=== PATIENT | female | born 1995 | race Two or more races ===

== ENCOUNTER 2023-03-14 14:48 | Emergency (ER) | payer OTHER, SELFPAY ==
[2023-03-14 15:03] VITALS: BP 145/84; PULSE 68; RESP 16; TEMP 37.5; O2SAT 97; BMI 24.9
[2023-03-14 15:17] LABS: Bilirubin Urine NEGATIVE (NEGATIVE); Blood Urine LARGE (NEGATIVE); Clarity Urine CLEAR (CLEAR); Color Urine LT. YELLOW (YELLOW); Glucose Urine UA NEGATIVE (NEGATIVE); Ketones Urine NEGATIVE (NEGATIVE); Leukocyte Esterase Urine SMALL (NEGATIVE); Nitrite Urine NEGATIVE (NEGATIVE); Protein Urine TRACE mg/dL (NEG/TRACE); Specific Gravity Urine >=1.030 (1.005-1.025); Urobilinogen Urine 0.2 EU/dL (0.2-1.0); pH Urine 5.5 (5.0-9.0)
[2023-03-14 15:20] LABS: HCG Qualitative Urine* NEGATIVE (NEGATIVE)
[2023-03-14 15:29] LABS: Urine Microscopic Indicated YES
[2023-03-14 15:32] LABS: Bacteria Urine SMALL #/HPF (NONE SEEN); Mucus Urine MODERATE (NONE SEEN); RBC Urine >100 #/HPF (0-2); Squamous Epithelial Cell Urine FEW #/LPF (NONE/RARE)
[2023-03-14 15:33] LABS: Cast Seen? NONE SEEN #/LPF (NONE SEEN); Crystals Seen? None Seen #/HPF (None Seen); Transitional Epi Cells Urine RARE #/LPF (NONE SEEN); Urine Culture Indicated YES
--- NOTE | 2023-03-14 15:51 | ED_ITS ---
HPI - Female Genitourinary General Chief complaint: Urogenital-Female Time Seen by Provider: 03/14/23 15:50 Source: patient Mode of arrival: walk-in Limitations: no limitations History of Present Illness HPI Narrative: Patient presents to emergency department complaining of dysuria. Patient states she had an incident with her significant other cheating on her and she wants to be checked for STDs. She states she noted a small lump to her inner thigh and got very concerned. She denies any vaginal discharge. She denies any abdominal pain. She denies any fever, chills. She denies any nausea, vomiting, diarrhea, o r constipation. She states she is on her menses currently.Denies any previous history of STDs. Related Data Previous Rx's Medication Instructions Recorded cephalexin 500 mg capsule 500 mg PO TID 10 days #30 caps 03/14/23 Allergies Allergy/AdvReac Type Severity Reaction Status Date / Time No Known Drug Allergies Allergy Verified 03/14/23 15:01 Review of Systems ROS Status of ROS 10 or more systems reviewed and unremarkable except as noted in history and below Exam Narrative Exam Narrative: Nurses notes and vital signs reviewed and patient is not hypoxic. General: Nontoxic, Well-appearing and in no apparent distress. Skin: Warm, dry, no pallor noted. Small 2 mm pustule to the right medial thigh consistent with an infected follicle. There is no diffuse cellulitis or abscess noted. Head: Normocephalic, atraumatic. Neck: Supple, non-tender. Eye: Pupils are equal, round and EOMI. No scleral icterus. Ears, Nose, Mouth, and Throat: TM clear, no posterior oropharynx erythema or nasal mucosal hypertrophy, uvula is mid-line Oral mucosa is moist Cardiovascular: Regular Rate and Rhythm without murmur, gallop or rub. Respiratory: No accessory muscle use or respiratory distress. Lungs are clear to auscultation, no wheezing, rales or rhonchi Chest Wall: no tenderness Back: No midline thoracic or lumbar vertebral tenderness. No CVA tenderness Musculoskeletal: normal ROM, no calf or popliteal tenderness, no lower extremity edema/swelling GI: Abdomen is soft, non-distended. Normal bowel sounds. No masses appreciated. No tenderness to palpation. No rebound, guarding, or rigidity noted. Vaginal: Normal introitus, no sores noted. Normal amount of menstrual blood noted. Swabs were obtained, no cervical motion tenderness. No masses Neurological: A&O x4. No cranial nerve dysfunction observed. No truncal ataxia. Moves all extremities. Sensation intact. Psychiatric: Cooperative and interactive. Normal mood and affect. Constitutional Vital Signs - 24 hr 03/14/23 15:03 Temperature 99.5 F Pulse Rate [Monitor] 68 Respiratory Rate 16 Blood Pressure [Left Arm] 145/84 H Pulse Oximetry 97 Course Vital Signs Vital signs: Vital Signs Temperature 99.5 F 03/14/23 15:03 Pulse Rate 68 03/14/23 15:03 Respiratory Rate 16 03/14/23 15:03 Blood Pressure 145/84 H 03/14/23 15:03 Pulse Oximetry 97 03/14/23 15:03 Temperature 99.5 F 03/14/23 15:03 Pulse Rate 68 03/14/23 15:03 Respiratory Rate 16 03/14/23 15:03 Blood Pressure 145/84 H 03/14/23 15:03 Pulse Oximetry 97 03/14/23 15:03 MDM - Female Genitourinary MDM Narrative Medical decision making narrative: all findings were discussed with patient. Patient was given the option to treat prophylactically for STDs which she has declined at this time. Patient is given a prescription for folliculitis. She is to follow up with primary care doctor regarding the cultures. She is advised to abstain from sex until all the cultures are resulted and all of her sexual partners are treated if anything is positive. She understands. Differential Diagnosis Differential diagnosis: Likely urinary tract infection, bacterial vaginosis, cervicitis, vaginitis, cyst of Bartholin's gland and dysmenorrhea Lab Data Attestation: I reviewed the patient's lab results. Labs: Lab Results 03/14/23 03/14/23 Range/Units 15:00 15:29 Urine Color Lt. yellow (YELLOW) Urine Clarity Clear (CLEAR) Urine pH 5.5 (5.0-9.0) Ur Specific [place] >=1.030 A (1.005-1.025) Urine Protein Trace (NEG/TRACE) mg/dL Urine Glucose (UA) Negative (NEGATIVE) mg/dL Urine Ketones Negative (NEGATIVE) mg/dL Urine Occult Blood Large A (NEGATIVE) Urine Nitrite Negative (NEGATIVE) Urine Bilirubin Negative (NEGATIVE) Urine Urobilinogen 0.2 (0.2-1.0) EU/dL Ur Leukocyte Esterase Small A (NEGATIVE) Urine RBC >100 A (0-2) #/HPF Urine WBC 5-10 A (NONE SEEN) #/HPF Ur Squamous Epith Cells Few A (NONE/RARE) #/LPF Ur Transition Epith Cell Rare A (NONE SEEN) #/LPF Urine Crystals None seen (None Seen) #/HPF Urine Bacteria Small A (NONE SEEN) #/HPF Urine Casts None seen (NONE SEEN) #/LPF Urine Mucus Moderate A (NONE SEEN) Ur Culture Indicated? Yes Urine HCG, Qual Negative (NEGATIVE) Discharge Plan Discharge Chief Complaint: Urogenital-Female Clinical Impression: Urinary tract infection, Concern about STD in female without diagnosis, Folliculitis Patient Disposition: Home, Self-Care Time of Disposition Decision: 16:07 Condition: Good Mode of Transportation: Private Vehicle Prescriptions / Home Meds: New cephalexin 500 mg capsule 500 mg PO TID 10 Days Qty: 30 0RF Instructions: Sexually Transmitted Diseases (ED), Urinary Tract Infection in Women (ED) Stand Alone Forms: Portal Instructions Referrals: Physician,Non-Staff, MD [Primary Care Provider] - 1 week Discharge Date/Time: 03/14/23 16:16
[2023-03-18 07:07] LABS: Neisseria gonorrhoeae, NAA Positive (Negative)
== END 2023-03-14 16:16 | disposition home or self-care (01) ==
PROVIDERS: Emergency Provider Emergency Medicine
DX: N39.0 Urinary tract infection, site not specified (principal); L73.9 Follicular disorder, unspecified; Z20.2 Contact with and (suspected) exposure to infections with a predominantly sexual mode of transmission
CPT/HCPCS: 81003; 81015; 84703; 87086; 87210; 87491; 87591; 99284

== ENCOUNTER 2023-10-10 13:01 | Emergency (ER) | payer SELFPAY ==
[2023-10-10] VITALS (9 sets, daily range): BP systolic 113–123; BP diastolic 82–88; PULSE 82–89; RESP 16–29; TEMP 37.3; O2SAT 94–99; BMI 24.9
--- NOTE | 2023-10-10 13:12 | XR_ITS ---
The [address] [address] Patient Name: DAVID JOYCE MRN: [id number] date: 1995 Sex: F Assigned Patient Location: ER Current Patient Location: ED.[facility] Accession/Order Number: [id number] Exam Date: 10/10/2023 13:25 Report Date: 10/10/2023 13:56 At the request of: PAMELA MARIN Procedure: XR chest 1V EXAMINATION: XR chest 1V 10/10/2023 10:55 AM PST HISTORY: Cough TECHNIQUE: Single frontal view of the chest acquired. COMPARISONS: None. FINDINGS: Lines/tubes/other: None. Heart and mediastinum: The heart and the mediastinum are within normal limits for technique. Bones: No acute osseous abnormality. Lungs: Multifocal patchy opacification of the right base. Pleura: There is no significant pleural effusion or pneumothorax. Other: None. XR/XR chest 1V IMPRESSION: Mild right basilar opacification. Differential includes superimposition of normal tissues, aspiration, and pneumonia. Electronically authenticated by: DEVON GUERRIER Date: 10/10/2023 13:56
--- NOTE | 2023-10-10 13:18 | ED.URI1 ---
HPI - URI/Sore Throat General Chief Complaint: Shortness of Breath/Dyspnea Stated Complaint: SHORTNESS OF BREATH/ CHEST PAIN Time Seen by Provider: 10/10/23 13:09 Source: patient Limitations: no limitations History of Present Illness HPI Narrative: Patient is a 28-year-old female who presents to the emergency department for the evaluation of flulike illness that began yesterday. She reports nasal congestion, cough and chest congestion, nausea and vomiting, generalized bodyaches and fatigue. She states she wanted to make sure she does not have COVID. She reports subjective fever this morning, she took DayQuil at 9 AM. No other medications prior to arrival. She is not concerned for . She states when she is coughing she feels short of breath and has discomfort in the chest, no hemoptysis or persistent chest pain. No sick contacts in the home. Related Data Previous Rx's Medication Instructions Recorded cephalexin 500 mg capsule 500 mg PO TID 10 days #30 caps 03/14/23 [id number] 10 ml PO Q6H PRN cold symptoms 10/10/23 2 mg-30 mg-10 mg/5 mL oral syrup #200 mL (Bromfed DM) ondansetron 4 mg disintegrating 4 mg PO Q6H PRN nausea and 10/10/23 tablet vomiting #12 tabs Allergies Allergy/AdvReac Type Severity Reaction Status Date / Time No Known Drug Allergies Allergy Verified 10/10/23 13:08 Review of Systems ROS Constitutional Reports: fatigue and malaise; Denies: fever or chills Ears, nose, mouth, and throat Reports: nasal congestion Cardiovascular Reports: chest pain Respiratory Reports: shortness of breath and cough Gastrointestinal Reports: nausea and vomiting; Denies: diarrhea Musculoskeletal Denies: back pain or neck pain Integumentary/Breast Denies: rash Neurological Reports: headache PFSH PFSH Social History Smoking status: Current some day smoker Exam Narrative Exam Narrative: Gen.: Awake, alert, in no distress Head: Normocephalic, atraumatic ENT: Moist mucous membranes, bilateral TMs clear, no pharyngeal erythema Respiratory: No respiratory distress, lungs clear bilaterally; speaks in full sentences, no wheezing or rhonchi Cardio: Regular rate and rhythm Extremities: Moves extremities equally Psych: Normal mood and affect Neuro: No focal neuro deficit Skin: Warm, dry, intact Constitutional Vital Signs, click to edit/add: Last Vital Signs Temp 99.1 F 10/10/23 13:08 Pulse 82 10/10/23 13:08 Resp 18 10/10/23 13:08 BP 123/84 10/10/23 13:08 Pulse Ox 99 10/10/23 13:08 O2 Del Method Room Air 10/10/23 13:08 Course Vital Signs Vital signs: Vital Signs Temperature 99.1 F 10/10/23 13:08 Pulse Rate 82 10/10/23 13:08 Respiratory Rate 18 10/10/23 13:08 Blood Pressure 123/84 10/10/23 13:08 Pulse Oximetry 99 10/10/23 13:08 Oxygen Delivery Method Room Air 10/10/23 13:08 Temperature 99.1 F 10/10/23 13:08 Pulse Rate 82 10/10/23 13:08 Respiratory Rate 18 10/10/23 13:08 Blood Pressure 123/84 10/10/23 13:08 Pulse Oximetry 99 10/10/23 13:08 Oxygen Delivery Method Room Air 10/10/23 13:08 MDM - URI/Sore Throat MDM Narrative Medical decision making narrative: Patient is positive for influenza A, she has stable vital signs. She was treated with Zofran in the ER. She is negative for COVID. Chest x-ray shows a questionable right basilar opacity consistent with normal tissue versus atelectasis versus pneumonia and as the patient has influenza A, she will be treated for viral symptoms with Bromfed-DM, Zofran for home. Follow-up with PCP. Work note provided. Return to the ER if symptoms change or worsen. Medical Records Attestation: I reviewed the patient's medical records. Lab Data Attestation: I reviewed the patient's lab results. Labs: Lab Results 10/10/23 Range/Units 13:14 SARS-CoV-2 (PCR) Negative (NEGATIVE) Influenza Type A Ag Positive A Influenza Type B Ag Negative Imaging Data Chest x-ray: Attestation: I have reviewed the pertinent imaging results. Radiologist's impression: Procedure: XR chest 1V EXAMINATION: XR chest 1V 10/10/2023 10:55 AM PST HISTORY: Cough TECHNIQUE: Single frontal view of the chest acquired. COMPARISONS: None. FINDINGS: Lines/tubes/other: None. Heart and mediastinum: The heart and the mediastinum are within normal limits for technique. Bones: No acute osseous abnormality. Lungs: Multifocal patchy opacification of the right base. Pleura: There is no significant pleural effusion or pneumothorax. Other: None. IMPRESSION: Mild right basilar opacification. Differential includes superimposition of normal tissues, aspiration, and pneumonia. Electronically authenticated by: DEVON GUERRIER Date: 10/10/2023 13:56 ECG Data Attestation: I personally reviewed and interpreted this ECG as follows: (Normal sinus rhythm at a rate of 80 with sinus arrhythmia, no acute ST elevation or ectopy. EKG reviewed by attending physician) ECG interpretation date: 10/10/23 ECG interpretation time: 13:22 Discharge Plan Discharge Chief Complaint: Shortness of Breath/Dyspnea Clinical Impression: Influenza Patient Disposition: Home, Self-Care Time of Disposition Decision: 14:01 Condition: Good Prescriptions / Home Meds: New [id number] [Bromfed DM] 2-30-10 mg/5 mL syrup 10 ml PO Q6H PRN (Reason: cold symptoms) Qty: 200 0RF ondansetron 4 mg tablet,disintegrating 4 mg PO Q6H PRN (Reason: nausea and vomiting) Qty: 12 0RF No Action cephalexin 500 mg capsule 500 mg PO TID 10 Days Qty: 30 0RF Instructions: Influenza (ED) Stand Alone Forms: Portal Instructions Referrals: Physician,Non-Staff, MD [Primary Care Provider] - 1 week
[2023-10-10] MEDS: ONDANSETRON 4 MG RAPDIS TABLET SL (13:21)
--- NOTE | 2023-10-10 13:22 | ECG_ITS ---
The [facility] Test Date: 2023-10-10 Pat Name: DAVID JOYCE Department: Room: - Gender: Female Mulcher Operator: : 1995 Requested By: [id number] Order Number: [id number] Reading MD: SYLVAIN SERRANO Measurements Intervals [place] Rate: 80 P: 75 WI: 168 QRS: 69 QRSD: 86 T: 18 QT: 346 QTc: 382 Interpretive Statements 1100 Sinus rhythm 1102 Sinus arrhythmia 4068 Nonspecific [place] abnormality 9130 borderline ECG No previous ECG available for comparison Electronically Signed On 10-11-2023 7:04:25 EST by SYLVAIN SERRANO
[2023-10-10 13:35] LABS: Influenza Virus A Antigen Positive; Influenza Virus B Antigen Negative
[2023-10-10 13:36] LABS: Internal Control Within Normal Limits
[2023-10-10 13:38] LABS: SARS-CoV-2 Ag NEGATIVE (NEGATIVE)
== END 2023-10-10 14:09 | disposition home or self-care (01) ==
PROVIDERS: Physician Assistant; Emergency Provider Emergency Medicine
DX: J10.1 Influenza due to other identified influenza virus with other respiratory manifestations (principal); Z20.822 Contact with and (suspected) exposure to COVID-19; F17.210 Nicotine dependence, cigarettes, uncomplicated
CPT/HCPCS: 71045; 87635; 87804; 87811; 93005; 99285; Q0162

== ENCOUNTER 2024-03-25 00:32 | Emergency (ER) | payer OTHER, SELFPAY ==
[2024-03-25 00:35] VITALS: BP 127/83; PULSE 94; TEMP 36.8; O2SAT 99; BMI 22.3
--- OUTSIDE RECORDS SUMMARY | 2024-03-25 00:38 | XMS_ITS | CCD ---
Author Organization [facility] Care Team Providers Care Heel Sprayer First Name Role Phone Cr Samuel Primary Care Provider Maury Gutiérrez Attending Provider DO Samuel Hankins Primary Care Provider [phone] DO Jemal Gregory Emergency Provider [phone] REQUEST, NONE LISTED Primary Care Unavaila JAH Crocker Admitting Unavailable MYKEL, JAH Attending NAMRATA Wayne Consulting Unavailable MADDI SRINIVASAN Consulting Unavailable REQUEST, NONE LISTED Primary Care Unavaila JAH Crocker Admitting Unavailable MYKEL, JAH Attending Unavailable IGNACIO, DR SAMEER Sherman Consulting Unavailable JAH HOGUE Consulting Unavailable NIKITA, NONE LISTED Primary Care Unavaila vicki GARCIA, DR BELEM Bae Admitting Unavailedmond GARCIA, DR BELEM Bae Attending Unavailabl e RADHA, DR BELEM Bae Consulting Unavailabl cecil NORRIS, DR DEYA Monaco Consulting Unavailable Kathia VARGAS Primary Care Physician [phone] Lex Davis Attending Unavailable Mo Farias Attending Unavailable DO Lex Davis Attending Unavailable Unavailable Unavailable Unavailable Allergies Allergy Classification Reported Allergen(s) Allergy Type Date of Onset Reaction(s) Facility (1 source) No Known Medication Allergies; Translations: [No Known Medication Allergies] Propensity to adverse reactions (disorder) [facility] Repository Medications Current Medications Medication Drug Class(es) Dates Sig (Normalized) Sig (Original) doxycycline hyclate 100 mg oral capsule (3 sources) Tetracycline-class Drug Start: 03-26-2023 End: 03-29-2024 take 1 capsule by mouth twice daily doxycycline hyclate 100 mg Cap 100 mg = 1 cap(s), Oral, BID, X 7 day(s), # 14 cap(s), Refills(s) 0, Pharmacy: [facility]/pharmacy #[id number], 162.5, cm, 03/22/24 20:24:00 EDT, Height/Length Dosing, 60.2, kg, 03/22/24 20:24:00 EDT, Weight Dosing Start Date: 03/22/24 Stop Date: 03/29/24 Status: Ordered hydrOXYzine pamoate 25 mg oral capsule (6 sources) Antihistamine Start: 12-01-2018 take 1-2 tablets by mouth three times daily as needed Vistaril 25 mg Cap 1-2 tabs, Oral, TID, PRN for itching, # 20 tab(s), Refills(s) 0, Pharmacy: [facility]/pharmacy #[id number] Start Date: 12/01/18 Status: Ordered Start: 11-24-2018 End: 03-28-2021 take 25 mg by mouth four times daily Hydroxyzine Hcl Active 25 MG PO Four times daily November 24, 2018 1:54pm Pluckemin (No Known Home Meds) (1 source) Start: 03-28-2021 Pluckemin (No Kn own Home Meds) Active March 28, 2021 12:00am permethrin 50 mg/ml topical cream (4 sources) Pyrethroid Start: 11-24-2018 End: 03-28-2021 Permethrin Active 1 APPLIC TOPICAL Once 60 November 24, 2018 1:54pm leave on for 8 to14 hrs before washing off predniSONE 20 mg oral tablet (4 sources) Start: 11-24-2018 End: 03-28-2021 take 60 mg by mouth once daily Prednisone Active 60 MG PO Daily 15 November 24, 2018 1:54pm Completed/Discontinued Medications Medication Drug Class(es) Dates Sig (Normalized) Sig (Original) acetaminophen 325 mg / HYDROcodone bitartrate 5 mg oral tablet (8 sources) Opioid Agonist Start: 09-14-2018 End: 11-24-2018 take 1 tablet by mouth every four to six hours Hydrocodone-Acetami nophen (Dellroy) 5-325 mg tablet Discontinued 1 TAB PO EVERY 4-6 HOURS 12 September 15, 2018 12:31am November 24, 2018 1:14pm Start: 09-12-2018 End: 11-24-2018 take 1 tablet by mouth every six hours Hydrocodone-Acetaminophen Discontinued 1 TAB PO Every 6 hours September 12, 2018 4:17pm November 24, 2018 1:14pm acetaminophen 325 mg / oxyCODONE hydrochloride 5 mg oral tablet (4 sources) Opioid Agonist Start: 04-23-2018 End: 09-12-2018 take 1 tablet by mouth every four to six hours Oxycodone-Acetaminophen (Percocet) 5-325 mg tablet Discontinued 1 TAB PO EVERY 4-6 HOURS April 23, 2018 September 12, 2018 4:17pm cephalexin 500 mg oral capsule (8 sources) Cephalosporin Antibacterial Start: 10-07-2017 End: 10-14-2017 take 1 capsule by mouth twice daily Cephalexin (Keflex) 500 mg capsule Discontinued 500 MG PO Twice daily 19 04October 07, 2017 2:08am October 14, 2017 1:09am Start: 08-26-2017 End: 10-04-2017 take 1 g by mouth twice daily Cephalexin (Keflex) 500 mg capsule Discontinued 1 GM PO Twice daily 03 05August 27, 2017 12:34am October 04, 2017 1:50pm chlorhexidine gluconate 1.2 mg/ml mouthwash (4 sources) Start: 09-14-2018 End: 11-24-2018 take 1 mL by mouth twice daily Chlorhexidine Gluconate (Peridex) 0.12 % mouthwash Discontinued 15 ML MUCOUS MEM Twice daily September 15, 2018 12:32am November 24, 2018 1:14pm rinse mouth for at least 30 secs clotrimazole 20 mg/ml vaginal cream (8 sources) Azole Antifungal Start: 03-02-2018 End: 03-04-2018 Clotrimazole Discontinued 1 APPLICATOR VAGINAL Daily at bedtime March 02, 2018 11:42am March 04, 2018 3:02pm ibuprofen 800 mg oral tablet (8 sources) Nonsteroidal Anti-inflammatory Drug Start: 09-14-2018 End: 11-24-2018 take 800 mg by mouth every six hours Ibuprofen Discontinued 800 MG PO Q6H September 15, 2018 12:31am November 24, 2018 1:14pm Start: 03-04-2018 End: 09-12-2018 Ibuprofen Discontinued 600 M G PO Every 6 hours March 04, 2018 3:02pm September 12, 2018 4:17pm do not exceed 4 doses in a 24 hour period metoclopramide 10 mg oral tablet (8 sources) Dopamine-2 Receptor Antagonist Start: 12-13-2017 End: 12-13-2017 Metoclopramide Hcl Discontinued TABLET December 13, 2017 6:39am December 13, 2017 6:39am Start: 09-05-2017 End: 10-04-2017 take 10 mg by mouth every six hours Metoclopramide Hcl Discontinued 10 MG PO Every 6 hours 50 September 05, 2017 10:14am October 04, 2017 1:50pm naproxen 500 mg oral tablet (4 sources) Nonsteroidal Anti-inflammatory Drug Start: 04-23-2018 End: 09-12-2018 take 1 tablet by mouth every twelve hours Naproxen (Naprosyn) 500 mg tablet Discontinued 500 MG PO Q12H April 23, 2018 10:26am September 12, 2018 4:17pm ondansetron 4 mg disintegrating oral tablet (8 sources) Serotonin-3 Receptor Antagonist Start: 08-26-2017 End: 09-05-2017 take 1 tablet by mouth every eight hours Ondansetron (Zofran Odt) 4 mg tablet,disintegra ting Discontinued 4 MG PO Q8H August 27, 2017 12:34am September 05, 2017 10:14am Start: 06-09-2017 End: 07-12-2017 take 1 tablet by mouth every eight hours Ondansetron (Zofran Odt) 4 mg tablet,disintegrating Discontinued 4 MG PO Q8H June 09, 2017 8:14am July 12, 2017 1:58pm penicillin v potassium 500 mg oral tablet (4 sources) Start: 09-12-2018 End: 11-24-2018 take 500 mg by mouth every six hours Penicillin V Potassium Discontinued 500 MG PO Every 6 hours September 12, 2018 4:17pm November 24, 2018 1:14pm potassium chloride 20 meq extended release oral tablet (4 sources) Start: 06-10-2017 End: 07-12-2017 take 40 mEq by mouth once daily Potassium Chloride Discontinued 40 MEQ PO Daily June 10, 2017 3:55am July 12, 2017 1:58pm Prenat.Vits,Ab,Min-Iro n-Folic (4 sources) Start: 07-21-2017 End: 10-14-2017 take 1 tablet by mouth once daily Prenat.Vits,Ab,Min-Iron -Folic Discontinued 1 TAB PO Daily July 21, 2017 7:26am October 14, 2017 1:09am Start: 07-21-2017 End: 10-14-2017 take 1 tablet by mouth once daily Prenat.Vits,Ab,Wtc-Bmzc-Wzgrl Discontin ued 1 TAB PO Daily July 21, 2017 6:26am October 14, 2017 12:09am Start: 07-21-2017 End: 10-14-2017 take 1 tablet by mouth once daily Prenat.Vits,Ab,Vjp-Pkat-Dnrdg Discontin ued 1 TAB PO Daily July 21, 2017 12:00am October 14, 2017 1:09am Dbwdowoq08-Oqik Vgw-Tx-Pn4-Dha (4 sources) Start: 12-13-2017 End: 04-23-2018 take 1 tablet by mouth once daily Vkwosrzk01-Qark Oal-Mq-Lj9-Dha Discontinued 1 TAB PO Daily December 13, 2017 6:39am April 23, 2018 9:00am Start: 12-13-2017 End: 04-23-2018 take 1 tablet by mouth once daily Jgclwlds00-Sjxg Upz-Us-Rc4-Dha Discontinued 1 TAB PO Daily December 13, 2017 5:39am April 23, 2018 8:00am Start: 12-13-2017 End: 04-23-2018 take 1 tablet by mouth once daily Olejsjfp08-Jvzr Qxa-Xt-Ju4-Dha Discontinued 1 TAB PO Daily December 13, 2017 1:00am April 23, 2018 9:00am Jwbenzdk17-Mesq Wck-Yu-Sc3-D slater ( Plus Dha) 27 mg iron-1 mg -312 mg-250 mg combo pack (4 sources) Start: 12-13-2017 End: 12-13-2017 Wrsbsxqm23-Nzqb Zhm-Ww-Gn4-D slater ( Plus Dha) 27 mg iron-1 mg -312 mg-250 mg combo pack Discontinued December 13, 2017 6:39am December 13, 2017 6:40am Start: 12-13-2017 End: 12-13-2017 Bhqgnrnh65-Ltcf Ndd-Ve-Xg9-D slater ( Plus Dha) 27 mg iron-1 mg -312 mg-250 mg combo pack Discontinued December 13, 2017 5:39am December 13, 2017 5:40am Start: 12-13-2017 End: 12-13-2017 Msuhecwi52-Qpom Gtb-Ja-Ef3-D slater ( Plus Dha) 27 mg iron-1 mg -312 mg-250 mg combo pack Discontinued December 13, 2017 1:00am December 13, 2017 6:40am promethazine hydrochloride 25 mg oral tablet (8 sources) Phenothiazine Start: 09-02-2017 End: 09-05-2017 take 25 mg by mouth every six hours Promethazine Discontinued 25 MG PO Q6H September 02, 2017 9:08pm September 05, 2017 10:15am Start: 06-10-2017 End: 07-12-2017 take 12.5 mg by mouth every six hours Promethazine Discontinued 12.5 MG PO Q6H June 10, 2017 3:55am July 12, 2017 1:58pm Streb B Medication (4 sources) Start: 07-21-2017 End: 08-26-2017 Streb B Medication Discontin ued July 21, 2017 2:18am August 26, 2017 10:15pm Start: 07-21-2017 End: 08-26-2017 Streb B Medication Discontin ued July 21, 2017 1:18am August 26, 2017 9:15pm Start: 07-21-2017 End: 08-26-2017 Streb B Medication Discontin ued July 21, 2017 12:00am August 26, 2017 10:15pm traMADol hydrochloride 50 mg oral tablet (1 source) Opioid Agonist Start: 03-28-2021 End: 03-28-2021 take 50 mg by mouth every four hours Tramadol Discontinued 50 MG PO Q4H 20 March 28, 2021 12:00am March 28, 2021 7:30am Problems Active Problems Problem Classification Problem Date Documented Da te Episodic/Chronic Abdominal pain (7 sources) Unspecified abdominal pain; Translations: [Pelvic and perineal pain] Onset: 06-19-2021 Episodic Genitourinary symptoms and ill-defined conditions (6 sources) Bacteriuria; Translations: [Bacteriuria] Onset: 03-22-2024 10-07-2017 Episodic Hemorrhage during ; abruptio placenta; placenta previa (5 sources) Threatened miscarriage in first trimester; Translations: [Threatened ] 07-21-2017 Episodic Immunizations and screening for infectious disease (1 source) Exposure to sexually transmissible disorder; Translations: [Contact with and (suspected) exposure to infections with a predominantly sexual mode of transmission] Onset: 03-22-2024 Episodic Menstrual disorders (1 source) Dysmenorrhea, unspecified; Translations: [DYSMENORRHEA UNSPECIFIED] Onset: 06-21-2021 Chronic Nausea and vomiting (6 sources) Nausea and vomiting; Translations: [Nausea with vomiting, unspecified] Onset: 05-31-2022 09-04-2017 Episodic Other complications of (5 sources) Vomiting of ; Translations: [Vomiting of , unspecified] 08-26-2017 Episodic Other complications of (1 source) Other specified related conditions, first trimester; Translations: [OTH SPEC PREG RELATED COND 1ST TRI] Onset: 05-31-2022 Episodic Other female genital disorders (4 sources) Vaginal bleeding; Translations: [Abnormal uterine and vaginal bleeding, unspecified] 10-04-2017 Chronic Other female genital disorders (3 sources) Abnormal uterine and vaginal bleeding, unspecified; Translations: [ABNORMAL UTERINE VAGINAL BLEED UNS] Onset: 06-11-2022 Chronic Other female genital disorders (1 source) Vaginal bleeding; Translations: [Vaginal spotting] Episodic Other gastrointestinal disorders (5 sources) Diarrhea; Translations: [Diarrhea, unspecified] 06-09-2017 Episodic Other and delivery including normal (5 sources) ; Translations: [Encounter for supervision of normal , unspecified, unspecified trimester] 10-07-2017 Episodic Other skin disorders (2 sources) Mass of wrist; Translations: [Localized swelling, mass and lump, unspecified upper limb] 03-28-2021 Episodic Residual codes; unclassified (1 source) Less than 8 weeks gestation of ; Translations: [< 8 WEEKS GESTATION ] Onset: 05-31-2022 Episodic Sexually transmitted infections (not HIV or hepatitis) (1 source) Sexually transmitted infectious disease; Translations: [Unspecified sexually transmitted disease] Onset: 03-26-2023 Episodic Spondylosis; intervertebral disc disorders; other back problems (5 sources) Backache; Translations: [Dorsalgia, unspecified] 10-07-2017 Episodic Spontaneous (1 source) Complete or unspecified spontaneous without complication; Translations: [COMPLETE/UNS SPONT AB W/O COMP] Onset: 06-12-2022 Episodic Substance-related disorders (3 sources) Nicotine dependence, cigarettes, uncomplicated; Translations: [Smoker] Onset: 06-12-2022 12-01-2018 Chronic Comment on above: Added secondary to d ocumentation in Social History. Urinary tract infections (5 sources) Urinary tract infectious disease; Translations: [Urinary tract infection, site not specified] 08-26-2017 Episodic Viral infection (5 sources) Acute viral disease; Translations: [Viral infection, unspecified] 10-14-2017 Episodic Past or Other Problems Problem Classification Problem Date Documented Da te Episodic/Chronic Other infections; including parasitic (2 sources) Infestation by Sarcoptes scabiei douglas hominis Onset: 11-10-2018 12-01-2018 Episodic Ovarian cyst (1 source) Unspecified ovarian cyst, right side; Translations: [UNSPECIFIED OVARIAN CYST RIGHT SIDE] Onset: 06-21-2021 Episodic Substance-related disorders (1 source) Cannabis use, unspecified, uncomplicated; Translations: [CANNABIS USE UNS UNCOMPLICATED] Onset: 06-21-2021 Episodic Results Test Name Value Interpretation Reference Range Facility Discharge Instructionson Discharge Instructions [id number]#1.00TIFF Normal [facility] ED Note-Physicianon 03-23-20 24 ED Note-Physician Basic Information Time Seen: Jung GARCIA, Michael Pettit. 03/22/2024 20:19 Chief Complaint Painful urination for past 3 days. Concern for STD. No fever. States had sexual intercourse last week and has been having pain since. History of Present Illness A 28-year-old female reports to the emergency department with chief complaint of painful urination for the last 3 days. She also reports that she is sore near the back of her vagina. Reports had sex 3 days ago. She states that it was a new partner. She states unsure of STD concerns, but would like to be treated. Reports that she has been having some pain ever since. She denies any fevers or chills. Reports some dysuria. She states that otherwise is not any medications. She denies any fevers or chills. Review of Systems No other aggravating or relieving factors no other associated symptoms no other prior treatments or complaints. Family: Reviewed and noncontributory Social: lives at home Review of systems negative unless otherwise specified in the HPI. Physical Exam Vitals & Measurements T: 37.1 ?C(Oral) HR: 95(Peripheral) RR: 16 BP: 149/90 SpO2: 100% HT: 162.5 cm WT: 60.2 kg BMI: 22.8 General: The patient appears well and in no apparent distress. Patient is resting comfortably on bed. Skin: Warm, dry, no pallor noted. Head: Normocephalic, atraumatic Neck: No JVD Eye: PERRLA, EOMI ENT: Moist mucus membranes Cardiovascular: Regular rate normal peripheral perfusion Respiratory: No respiratory distress no accessory muscle use no obvious audible wheezing Chest Wall: no deformity Musculoskeletal: normal ROM, no deformity, no swelling GI: No obvious distention soft nontender nondistended no guarding rebounding or rigidity : External genitalia examination performed with nurse Lianna at bedside. No erythema or lacerations noted in the peritoneal area. Mild tenderness to palpation near the posterior aspect of the labia. No discharge or ulcerations noted. Neurological: A&O moves all extremities equal strength and symmetry Psychiatric: Cooperative and appropriate Medical Decision Making MEDICAL DECISION MAKING Number and Complexity of Problems Differential Diagnosis: [] [facility] Data External documents reviewed: [] My EKG interpretation: [] My CT interpretation: [] My X-ray interpretation: [] My Ultrasound interpretation: [] Decision rules/scores evaluated: [] Discussed with: [] Treatment and Disposition ED Course: 28-year-old female reports to the emergency department with chief complaint of possible STD exposure, as well as dysuria. Reports he has pain around her peritoneal area. She states that she had sex couple days ago, still being painful. Unsure of STD risk, but would like to be treated. Denies any fevers or chills. She did want to be examined, on her posterior aspect of her peritoneal area, so I did do external genital exam. Please see physical exam note. Patient tolerated well. Urinalysis was negative. Patient was treated with ceftriaxone and doxycycline for STD concerns. Discussed follow-up with PCP for further testing including syphilis and HIV.. Discussed return precautions. Follow-up with your primary care provider in 3 to 5 days. If symptoms worsen, do not improve, or new symptoms arise please report back to emergency department for further evaluation. The patient was understanding and agreeable to plan moving forward. Shared decision making: [] Code status: [] Assessment/Plan Dysuria (R30.0: Dysuria) STD exposure (Z20.2: Contact with and (suspected) exposure to infections with a predominantly sexual mode of transmission) Orders: ceftriaxone, 500 mg = 1 EA, Injection, IntraMuscular, Once, Stop date 03/22/24 20:48:00 EDT, STAT, Start date 03/22/24 20:48:00 EDT, 03/22/24 20:48:00 EDT doxycycline, 100 mg = 1 cap(s), Oral, BID, X 7 day(s), # 14 cap(s), Refills(s) 0, Pharmacy: [facility]/pharmacy #[id number], 162.5, cm, 03/22/24 20:24:00 EDT, Height/Length Dosing, 60.2, kg, 03/22/24 20:24:00 EDT, Weight Dosing doxycycline, 100 mg = 1 cap(s), Cap, Oral, Once, Stop date 03/22/24 20:48:00 EDT, STAT, Start date 03/22/24 20:48:00 EDT, 03/22/24 20:48:00 EDT Chlamydia/Gonococcus , GILBERTO U Beta Hcg Qual UA with Cult Rflx Urine Culture Medications Administered Given cefTRIAXone IM, 500 mg, IntraMuscular doxycycline hyclate 100 mg Cap, 100 mg, Oral Disposition Plan Patient Discharge Condition stable Discharge Disposition to home Discharge Prescription List Prescriptions doxycycline hyclate 100 mg Cap, 100 mg= 1 cap(s), Oral, BID Follow-up With When Contact Information Kathia VARGAS In 3 days 03/25/[address] [place], [place] [id number] Business (1) Additional Instructions: Call Dr for diagnosis based follow up Patient Education Safe Sex Dysuria Attestation Patient seen and evaluated by the physician night assistant. Attending physician was present in the emergency department a (more content not included)... Normal [facility] Comment on above: Result Comment: Elec tronically Signed By: Jung GARCIA, Michael Fatima\.br\Date and Time Signed: 06/16/24 21:23 EDT\.br\Electronically Co-Signed By: Lex Davis DO\.br\Date and Time Co-Signed: 03/23/24 01:47 EDT Consent for Treatmenton 03-07 Consent for Treatment [id number] #1.00TIFF Normal [facility] ED Clinical Summaryon 2023 ED Clinical Summary [place] [id number] ED Clinical Summary Person Information Name: DAVID JOYCE/[facility] Age: 28 Years : 1995 Sex: Female Language: Gabonese PCP: Kathia VARGAS DO Marital Status: Single Visit Id: Visit Reason: Perineal injury; STD exposure; Dysuria; Frequent urination/ pain Speciality: Acuity: 3 Enc Type: Emergency Med Service: Emergency Arrival: 03/22/2024 20:17:10 Discharge: 03/22/2024 21:25:56 LOS: 000 01:08 Checkin: 03/22/2024 20:17:10 Checkout: 03/22/2024 21:25:56 Dispo Type: Home (Routine DC) EVENTS: Event Name Event Status Request Date/Time Start Date/Time Complete Date/Time Arrive Complete 03/22/2024 20:17:10 03/22/2024 20:17:10 03/22/2024 20:17:10 Document Home Meds Request 03/22/2024 20:17:10 Triage Complete 03/22/2024 20:17:10 03/22/2024 20:24:56 03/22/2024 20:24:56 Dr Exam Complete 03/22/2024 20:19:32 03/22/2024 20:19:32 03/22/2024 20:19:32 Registration Complete 03/22/2024 20:19:32 03/22/2024 20:28:45 03/22/2024 20:30:35 Dr Exam Complete 03/22/2024 20:19:45 03/22/2024 20:19:45 03/22/2024 20:19:45 Pending Labs Complete 03/22/2024 20:21:13 03/22/2024 21:04:56 Lab Complete 03/22/2024 20:21:13 03/22/2024 21:04:56 Urine Collect Complete 03/22/2024 20:21:13 03/22/2024 21:04:56 Pending Labs Collected 03/22/2024 20:24:55 Bed Assign Complete 03/22/2024 20:28:45 03/22/2024 20:28:45 03/22/2024 20:28:45 RN Exam Complete 03/22/2024 20:28:45 03/22/2024 20:53:12 03/22/2024 20:53:12 Reg Complete Request 03/22/2024 20:30:35 Reg Bed Request Complete 03/22/2024 20:38:24 03/22/2024 20:38:24 03/22/2024 20:38:24 Meds Admin Complete 03/22/2024 20:48:21 03/22/2024 21:22:39 Pending Labs Collected 03/22/2024 20:59:49 03/22/2024 20:59:49 Lab Collected 03/22/2024 20:59:49 03/22/2024 20:59:49 Discharge Complete 03/22/2024 21:17:30 03/22/2024 21:26:04 03/22/2024 21:26:04 Transfer Complete 03/22/2024 21:26:04 03/22/2024 21:26:04 03/22/2024 21:26:04 ADDRESS: [address] [place] [phone] PHYS DOC NOTES: MEDICAL INFORMATION: Prescriptions Given: Medications to Continue Taking That Have Changed [facility]/pharmacy #[id number], [address] [place], [place] [id number], [phone] START: doxycycline (doxycycline hyclate 100 mg Cap) 1 Capsules By Mouth 2 times a day for 7 Days. Refills: 0. Other Medications START: doxycycline (doxycycline hyclate 100 mg Cap) 1 Capsules By Mouth 2 times a day. Refills: 0. Medications to Continue with No Changes Other Medications hydrOXYzine (Vistaril 25 mg Cap) 1-2 tabs By Mouth 3 times a day as needed for itching. Refills: 0. PATIENT EDUCATION INFORMATION: Instructions: Safe Sex; Dysuria Follow up: With: Address: When: Kathia VARGAS [address] [place] [address], [place] [phone] Business (1) In 3 days 03/25/2024 Comments: Call Dr for diagnosis based follow up DIAGNOSIS: Dysuria; STD exposure Normal [facility] ED Patient Education Noteon 03-22-2024 ED Patient Education Note Obstetrics and Gynecology Safe Sex Practicing safe sex means taking steps before and during sex to reduce your risk of: ? Getting an STI (sexually transmitted infection). ? Giving your partner an STI. ? Unwanted or unplanned . How to practice safe sex Ways you can practice safe sex ? Limit your sexual partners to only one partner who is having sex with only you. ? Avoid using alcohol and drugs before having sex. Alcohol and drugs can affect your judgment. ? Before having sex with a new partner: ? Talk to your partner about past partners, past STIs, and drug use. ? Get screened for STIs and discuss the results with your partner. Ask your partner to get screened too. ? Check your body regularly for sores, blisters, rashes, or unusual discharge. If you notice any of these problems, visit your health care provider. ? Avoid sexual contact if you have symptoms of an infection or you are being treated for an STI. ? While having sex, use a condom. Make sure to: ? Use a condom every time you have vaginal, oral, or anal sex. Both females and males should wear condoms during oral sex. ? Keep condoms in place from the beginning to the end of sexual activity. ? Use a latex condom, if possible. Latex condoms offer the best protection. ? Use only water-based lubricants with a condom. Using petroleum-based lubricants or oils will weaken the condom and increase the chance that it will break. Ways your health care provider can help you practice safe sex ? See your health care provider for regular screenings, exams, and tests for STIs. ? Talk with your health care provider about what kind of control (contraception) is best for you. ? Get vaccinated against hepatitis B and human papillomavirus (HPV). ? If you are at risk of being infected with HIV (human immunodeficiency virus), talk with your health care provider about taking a prescription medicine to prevent HIV infection. You are at risk for HIV if you: ? Are a man who has sex with other men. ? Are sexually active with more than one partner. ? Take drugs by injection. ? Have a sex partner who has HIV. ? Have unprotected sex. ? Have sex with someone who has sex with both men and women. ? Have had an STI. Follow these instructions at home: ? Take vjnw-ydf-gkywmbl and prescription medicines only as told by your health care provider. ? Keep all follow-up visits. This is important. Where to find more information ? Centers for Disease Control and Prevention: www.cdc.gov ? Planned Parenthood: www.plannedparenthoo d.org ? Office on Women's Health: www.womenshealth.gov Summary ? Practicing safe sex means taking steps before and during sex to reduce your risk getting an STI, giving your partner an STI, and having an unwanted or unplanned . ? Before having sex with a new partner, talk to your partner about past partners, past STIs, and drug use. ? Use a condom every time you have vaginal, oral, or anal sex. Both females and males should wear condoms during oral sex. ? Check your body regularly for sores, blisters, rashes, or unusual discharge. If you notice any of these problems, visit your health care provider. ? See your health care provider for regular screenings, exams, and tests for STIs. This information is not intended to replace advice given to you by your health care provider. Make sure you discuss any questions you have with your health care provider. Document Revised: 02/27/2021 Document Reviewed: 02/27/2021 [employer] Patient Education ? 2022 [employer] Urology Dysuria Dysuria is pain or discomfort during urination. The pain or discomfort may be felt in the part of the body that drains urine from the bladder (urethra) or in the surrounding tissue of the genitals. The pain may also be felt in the groin area, lower abdomen, or lower back. You may have to urinate frequently or have the sudden feeling that you have to urinate (urgency). Dysuria can affect anyone, but it is more common in females. Dysuria can be caused by many different things, including: ? Urinary tract infection. ? Kidney stones or bladder stones. ? Certain STIs (sexually transmitted infections), such as chlamydia. ? Dehydration. ? Inflammation of the tissues of the vagina. ? Use of certain medicines. ? Use of certain soaps or scented products that cause irritation. Follow these instructions at home: Medicines ? Take tlxp-lve-fvrjfwi and prescription medicines only as told by your health care provider. ? If you were prescribed an antibiotic medicine, take it as told by your health care provider. Do not stop taking the antibiotic even if you start to feel better. Eating and drinking ? Drink enough fluid to keep your urine pale yellow. ? Avoid caffeinated beverages, tea, and alcohol. These beverages can irritate the bladder and make dysuria worse. I (more content not included)... Normal [facility] ED Patient Summaryon 024 ED Patient Summary [address] [address] Patient Discharge Instructions Person Information Name: DAVID JOYCE Age: 28 Years Arrival Date: 03/22/2024 20:17:10 Discharge Diagnosis: Dysuria; STD exposure Primary Care Physician: Kathia VARGAS DO Provider Information Primary Provider: Lex Davis DO Advanced Patternmaker Apprentice Metal:None The exam and treatment you received in the Emergency Department were for an urgent problem and are not intended as complete care. It is important that you follow up with a doctor, nurse practitioner, or physician?s night assistant for ongoing care. If your symptoms become worse or you do not improve as expected and you are unable to reach your usual health care provider, you should return to the Emergency Department. We are available 24 hours a day. DAVID JOYCE has been given the following list of patient education materials, prescriptions and follow-up instructions: Follow-up Instructions: With: Address: When: Kathia VARGAS [address] [place] [address] Business (1) In 3 days 03/25/2024 Comments: Call Dr for diagnosis based follow up In the event that this physician does not participate in your insurance network, please consult with your insurance company to find a nearby participating provider. Patient Education Materials: Safe Sex; Dysuria A MESSAGE TO ALL PATIENTS REGARDING OPIOIDS PRESCRIPTION OPIOIDS: WHAT YOU NEED TO KNOW Prescription opioids can be used to help relieve xgjpdpua-if-zhwhzz pain and are often prescribed following a surgery or injury, or for certain health conditions. These medications can be an important part of the treatment but also come with serious risks. It is important to work with your healthcare provider to make sure you are getting the safest, most effective care. WHAT ARE THE RISKS AND SIDE EFFECTS OF OPIOID USE? Prescription opioids carry serious risks of addiction and overdose, especially with prolonged use. An opioid overdose, often marked by slowed breathing, can cause sudden . The use of prescription opioids can have a number of side effects as well, even when taken as directed: ? Tolerance?meaning you might need to take more of the medication for the same pain relief ? Physical dependence?meaning you have symptoms of withdrawal when a medication is stopped ? Increased sensitivity to pain ? Constipation ? Nausea, vomiting, and dry mouth ? Sleepiness and dizziness ? Confusion ? Depression ? Low levels of testosterone that can result in lower sex drive, energy, and strength ? Itching and sweating RISKS ARE GREATER WITH: ? History of drug misuse, substance use disorder, or overdose ? Mental health conditions (such as depression or anxiety) ? Sleep apnea ? Older age (65 years and older) ? Avoid alcohol while taking prescription opioids. Also, unless specifically advised by your health care provider, medications to avoid include: ? Benzodiazepines (such as Xanax or Valium) ? Muscle relaxants (such as Soma or Flexeril) ? Hypnotics (such as Ambien or Lunesta) ? Other prescription opioids KNOW YOUR OPTIONS Talk to your health care provider about ways to manage your pain that don?t involve prescription opioids. Some of these options may actually work better and have fewer risks and side effects. Options may include: ? Pain relievers such as acetaminophen, ibuprofen, and naproxen ? Some medication that are also used for depression or seizures ? Physical therapy and exercise ? Cognitive behavioral therapy, a psychological, goal-directed approach, in which patients learn how to modify physical, behavioral, and emotional triggers of pain and stress. IF YOU ARE PRESCRIBED OPIOIDS FOR PAIN: ? Never take opioids in greater amounts or more often than prescribed. ? Follow up with your primary health care provider. o Work together to create a plan on how to manage your pain. o Talk about ways to help manage your pain that don?t involve prescription opioids. o Talk about any and all concerns and side effects. ? Help prevent misuse and abuse o Never sell or share prescription opioids. o Never use another person?s prescription opioids. ? Store prescription opioids in a secure place and out of reach of others (this may include visitors, children, friends, and family). ? Safely dispose of unused prescription opioids: Find your community drug take-back program or your pharmacy mail-back program, or flush them down the toilet, following guidance from the Food and Drug Administration (www.fda.gov/Drugs/R esourcesForYou). ? Visit www.cdc.gov/drugover dose to learn about the risks of opioids abuse and overdose. ? If you believe you may be struggling with addiction, tell your health group care worker and ask for guidance or call [facility] Jessica (more content not included)... Normal [facility] SEROLOGYOrdered By: Vasu Cifuenteseon on 03-22-2024 HCG.beta subunit (U) [Moles/Vol] Negative Normal [facility] Man Sero U BetaHcg Qualon 03-22-2024 HCG.beta subunit (U) [Moles/Vol] Negative Normal [facility] Comment on above: Performed By: #### 2 [id number] #### [facility] [address] [place] [address] UA with Cult Rflxon 03-22-20 24 Bilirubin Ql (U) Negative Normal Negative [facility] Comment on above: Performed By: #### 4 [id number] #### [facility] [address] [place] [address] Clarity (U) Clear Normal Clear [facility] Comment on above: Performed By: #### 4 [id number] #### [facility] [address] [place] [address] Color (U) Light-Yellow Normal Yellow [facility] Comment on above: Result Comment: Micr oscopic readings are only performed on those samples that meet specific criteria set forth by [facility]. Performed By: #### 4 [id number] #### [facility] [address] [place] [address] Epithelial cells.squamous Auto (Urine sed) [#/Area] 3-4 Invalid Interpretation Code [facility] Comment on above: Performed By: #### 4 [id number] #### [facility] [address] [place] [address] Glucose Ql (U) Negative Normal Negative [facility] Comment on above: Performed By: #### 4 [id number] #### [facility] [address] [place] [address] Hemoglobin Auto test strip (U) [Mass/Vol] Negative Normal Negative [facility] Comment on above: Performed By: #### 4 [id number] #### [facility] [address] [place] [address] Ketones Auto test strip Ql (U) Negative Normal Negative [facility] Comment on above: Performed By: #### 4 [id number] #### [facility] [address] [place] [address] Leukocyte esterase Auto test strip Ql (U) 75 Rosa M/uL Abnormal Negative [facility] Comment on above: Performed By: #### 4 [id number] #### [facility] [address] [place] [address] Mucus Auto Ql (U) 1+ CD:[id number] Abnormal Negative F [facility] Comment on above: Performed By: #### 4 [id number] #### [facility] [address] [place] [address] Nitrite Auto test strip Ql (U) Negative Normal Negative [facility] Comment on above: Performed By: #### 4 [id number] #### [facility] [address] [place] [address] pH (U) 6.5 [pH] Invalid Interpretation Code 5.0-9.0 [facility] Comment on above: Performed By: #### 4 [id number] #### [facility] [address] [place] [address] Protein Ql (U) Trace Abnormal Negative [facility] Comment on above: Performed By: #### 4 [id number] #### [facility] [address] [place] [address] RBC Ql (U) 4-20 Abnormal 0-3 [facility] Comment on above: Performed By: #### 4 [id number] #### [facility] [address] [place] [address] Specific gravity (U) [Rel density] 1.027 Invalid Interpretation Code 1.005-1.030 [facility] Comment on above: Performed By: #### 4 [id number] #### [facility] [address] [place] [address] Urobilinogen (U) [Mass/Vol] Negative Normal Negative [facility] Comment on above: Performed By: #### 4 [id number] #### [facility] [address] [place] [address] WBC Auto (Urine sed) [#/Area] 6-15 Abnormal 0-5 [facility] Comment on above: Performed By: #### 4 [id number] #### [facility] [address] [place] [address] Type of Urine collection method Clean Catch Normal [facility] Comment on above: Performed By: #### 4 [id number] #### [facility] [address] [place] [address] URINALYSISOrdered By: SYSTEM SYSTEM on 03-22-2024 Bilirubin Ql (U) Negative Normal Negativemg/dL [facility] UA Auto SS Clarity (U) Clear (03/22/24 8:30 PM) Normal Clear [facility] UA Auto SS Color (U) Light-Yellow 1 (03/22/24 8:30 PM) Normal Yellow [facility] UA Auto SS Comment on above: Interpretive Data: M icroscopic readings are only performed on those samples that meet specific criteria set forth by [facility]. Epithelial cells.squamous Auto (Urine sed) [#/Area] 3-4 graded/HPF Invalid Interpretation Code [facility] UA Auto SS Glucose Ql (U) Negative Normal Negativemg/dL [facility] UA Auto SS Hemoglobin Auto test strip (U) [Mass/Vol] Negative Normal Negativemg/dL [facility] UA Aut o SS Ketones Auto test strip Ql (U) Negative Normal Negativemg/dL [facility] UA Auto SS Leukocyte esterase Auto test strip Ql (U) 75 Rosa M/uL Rosa M/uL Invalid Interpretation Code NegativeLeu/u L [facility] UA Auto SS Mucus Auto Ql (U) 1+ graded/LPF Invalid Interpretation Code Negativegrade d/LPF [facility] UA Auto SS Nitrite Auto test strip Ql (U) Negative Normal Negativemg/dL [facility] UA Auto SS pH (U) 6.5 *NA* (03/22/24 8:30 PM) Invalid Interpretation Code 5.0 - 9.0 [facility] UA Auto SS Protein Ql (U) Trace mg/dL Invalid Interpretation Code Negativemg/dL [facility] UA Auto SS RBC Ql (U) 4-20 graded/HPF Invalid Interpretation Code 0-3graded/HPF [facility] UA Auto SS Specific gravity (U) [Rel density] 1.027 *NA* (03/22/24 8:30 PM) Invalid Interpretation Code 1.005 - 1.030 [facility] UA Auto SS Urobilinogen (U) [Mass/Vol] Negative Normal Negativemg/dL [facility] UA Auto SS WBC Auto (Urine sed) [#/Area] 6-15 graded/HPF Invalid Interpretation Code 0-5graded/HPF [facility] UA Auto SS URINALYSISOrdered By: Michael fitch on 03-22-2024 UA Spec Desc Clean Catch (03/22/24 8:30 PM) Normal [facility] UA Auto SS Consent for Treatmenton 03-08 Consent for Treatment [id number] #1.00CD:127 Normal [facility] Discharge Instructionson Discharge Instructions [id number]#[id number]:127 Normal [facility] ED Clinical Summaryon 2022 ED Clinical Summary [address] [address] ED Clinical Summary Person Information Name: DAVID JOYCE/[facility] Age: 27 Years : 1995 Sex: Female Language: Gabonese PCP: Kathia VARGAS DO Marital Status: Single Visit Id: Visit Reason: STD exposure; Medical screening exam; THINKS TATTOO IS INFECTED Speciality: Acuity: 4 Enc Type: Emergency Med Service: Emergency Arrival: 03/26/2023 00:03:16 Discharge: 03/26/2023 01:25:54 LOS: 000 01:22 Checkin: 03/26/2023 00:03:16 Checkout: 03/26/2023 01:25:54 Dispo Type: Home (Routine DC) EVENTS: Event Name Event Status Request Date/Time Start Date/Time Complete Date/Time Arrive Complete 03/26/2023 00:03:16 03/26/2023 00:03:16 03/26/2023 00:03:16 Document Home Meds Request 03/26/2023 00:03:16 Triage Complete 03/26/2023 00:03:16 03/26/2023 00:10:21 03/26/2023 00:10:21 Registration Complete 03/26/2023 00:07:20 03/26/2023 00:07:20 03/26/2023 00:07:20 Reg Complete Request 03/26/2023 00:07:20 Reg Bed Request Complete 03/26/2023 00:07:20 03/26/2023 00:07:20 03/26/2023 00:07:20 Bed Assign Complete 03/26/2023 00:11:18 03/26/2023 00:11:18 03/26/2023 00:11:18 Dr Exam Complete 03/26/2023 00:11:18 03/26/2023 00:13:46 03/26/2023 00:13:46 RN Exam Complete 03/26/2023 00:11:18 03/26/2023 00:49:27 03/26/2023 00:49:27 Registration Request 03/26/2023 00:13:46 Meds Admin Complete 03/26/2023 00:36:46 03/26/2023 00:50:04 Discharge Complete 03/26/2023 01:19:49 03/26/2023 01:26:03 03/26/2023 01:26:03 Transfer Complete 03/26/2023 01:26:03 03/26/2023 01:26:03 03/26/2023 01:26:03 ADDRESS: [address] [facility] [id number] PHYS DOC NOTES: MEDICAL INFORMATION: Prescriptions Given: New Medications [id number], [address] [place], [place] [id number], [phone] doxycycline (doxycycline hyclate 100 mg Cap) 1 Capsules By Mouth 2 times a day. Refills: 0. Medications to Continue with No Changes Other Medications hydrOXYzine (Vistaril 25 mg Cap) 1-2 tabs By Mouth 3 times a day as needed for itching. Refills: 0. PATIENT EDUCATION INFORMATION: Instructions: Gonorrhea Follow up: With: Address: When: Kathia VARGAS [address] [place] [address], [address] [address] [facility] (1) In 3 days 03/29/2023 Comments: Return to the emergency room if you develop any symptoms. DIAGNOSIS: 1:STD (sexually transmitted disease) Normal [facility] ED Note-Physicianon 03-26-20 ED Note-Physician Basic Information Time Seen: Mo Farias M.D. 03/26/2023 00:13 Chief Complaint states was told she had an std and would like to be treated for it. also tattoo to right thigh has been a little irritated History of Present Illness The patient is a 27-year-old -[place]in[place] female who presented to the emergency room for treatment for gonorrhea. The patient states a week ago she was seen at [facility] and she had pelvic culture and she was called and told that she showed positive for gonorrhea. The patient has no vaginal discharge. She states she came here because she is closer to this hospital. The patient denies any abdominal pain. She reports some itching of her tattoo on her right thigh. The patient denies any fever, denies any chills. She denies any other associated symptoms. Review of Systems Additional ROS info: Except as noted in the above Review of Systems and in the History of Present Illness all other systems have been reviewed and are negative or noncontributory. Physical Exam Vitals & Measurements T: 36.7 ?C(Oral) HR: 81(Peripheral) RR: 16 BP: 134/82 SpO2: 98% HT: 162 cm WT: 68.3 kg BMI: 26.02 General: alert, no acute distress Skin: warm, dry Head: no trauma, normocephalic Neck: Trachea midline Eye: normal conjunctiva, sclera clear Cardiovascular: regular rate and rhythm Respiratory: Lungs CTA, respirations non labored, breath sounds equal Gastrointestinal: soft, non distended, no tenderness, no guarding Extremities: no deformity, no trauma, right thigh tattoo with no erythema. No tenderness with palpation. Neurological: Alert and oriented, speech normal, no focal neuro deficits Psychiatric: cooperative, affect appropriate for age, Medical Decision Making MEDICAL DECISION MAKING Number and Complexity of Problems Differential Diagnosis: [] [facility] Data External documents reviewed: [] My EKG interpretation: [] My CT interpretation: [] My X-ray interpretation: [] My Ultrasound interpretation: [] Decision rules/scores evaluated: [] Discussed with: [] Treatment and Disposition ED Course: The patient presented for treatment for sexually transmitted disease. She has been seen at [facility] and she was called and told that she tested positive for gonorrhea. The patient has no vaginal discharge. No abdominal pain. The patient was given Rocephin IM. We will discharge patient home with prescription for doxycycline. She was instructed to make sure to finish the treatment doxycycline for the chlamydia as well. She will follow-up with her primary care. She is instructed to return to the emergency room if she develops any symptoms. Shared decision making: [] Code status: [] Assessment/Plan 1. STD (sexually transmitted disease) (A64: Unspecified sexually transmitted disease) Orders: ceftriaxone, 500 mg = 1 EA, Injection, IntraMuscular, Once, Stop date 03/26/23 0:36:00 EDT, STAT, Start date 03/26/23 0:36:00 EDT, 03/26/23 0:36:00 EDT doxycycline, 100 mg = 1 cap(s), Oral, BID, # 14 cap(s), Refills(s) 0, Pharmacy: [id number], 162, cm, 03/26/23 0:10:00 EDT, Height/Length Dosing, 68.3, kg, 03/26/23 0:10:00 EDT, Weight Dosing Medications Administered Given cefTRIAXone IM, 500 mg, IntraMuscular Disposition Plan Patient Discharge Condition Stable Discharge Disposition Discharged home Discharge Prescription List Prescriptions doxycycline hyclate 100 mg Cap, 100 mg= 1 cap(s), Oral, BID Follow-up With When Contact Information Kathia MADDI VARGAS In 3 days 03/29/[address] [place], [place] [id number]- Business (1) Additional Instructions: Return to the emergency room if you develop any symptoms. Patient Education Gonorrhea Problem List/Past Medical History Ongoing Scabies Smoker Historical No qualifying data Procedure/Surgical History None. Medications Inpatient No active inpatient medications Home doxycycline hyclate 100 mg Cap, 100 mg= 1 cap(s), Oral, BID Vistaril 25 mg Cap, 1-2 tabs, Oral, TID, PRN Allergies No Known Medication Allergies Social History Alcohol - Low Risk, 12/01/2018 Current, Beer, 1-2 times per month, 03/26/2023 Current, 1-2 times per month, 12/01/2018 Substance Abuse - Medium Risk, 12/01/2018 Current, Marijuana, 03/26/2023 Current, Marijuana, Several times per day, 12/01/2018 Tobacco - Medium Risk, 12/01/2018 4 or less cigarettes(less than 1/4 pack)/day in last 30 days Tobacco Use:., 03/26/2023 Cigarettes, 12/01/2018 Lab Results No qualifying data available. Diagnostic Results No qualifying data available. Normal [facility] Comment on above: Result Comment: Elec tronically Signed By: Dinora Kaur, Mo Ayers.gary\Date and Time Signed: 03/26/23 02:05 EDT ED Patient Education Noteon 03-26-2023 ED Patient Education Note Obstetrics and Gynecology Gonorrhea Gonorrhea is a sexually transmitted infection (STI) that can infect any person. If left untreated, this infection can: ? Damage the reproductive organs. ? Spread to other parts of the body. ? Cause someone to be unable to have children (infertility). ? Harm an unborn baby if an infected person is . It is important to get treatment for gonorrhea as soon as possible. All of your sex partners may also need to be treated for the infection. What are the causes? This condition is caused by bacteria called Neisseria gonorrhoeae. The infection is spread from person to person through sexual contact, including oral, anal, and vaginal sex. The infection can also pass from a person to the baby during . What increases the risk? The following factors may make you more likely to develop this condition: ? Being a woman younger than 25 years and sexually active. ? Being a man who has sex with men. ? Having a new sex partner or having multiple partners. ? Having a sex partner who has an STI. ? Not using condoms correctly or not using condoms every time you have sex. ? Having a history of STIs. What are the signs or symptoms? When symptoms occur, they may include: ? Abnormal discharge from the penis or vagina. The discharge may be cloudy, thick, or yellow-green in color. ? Pain or burning when you urinate. ? Itching, irritation, pain, bleeding, or discharge from the rectum. This may occur if the infection was spread by anal sex. ? Sore throat or swollen lymph nodes in the neck. This may occur if the infection was spread by oral sex. ? Pain or swelling in the testicles. ? Bleeding between menstrual periods. If the infection has spread to other areas of the body, symptoms may include: ? Fever. ? Eye irritation. ? Swelling, redness, warmth, and pain in the joints. ? Rashes. In some cases, there are no symptoms. How is this diagnosed? This condition is diagnosed based on: ? A physical exam. ? A swab of fluid. The swab of fluid may be taken from the penis, vagina, throat, or rectum. ? Urine tests. Not all test results will be available during your visit. How is this treated? This condition is treated with antibiotic medicines. It is important to start treatment as soon as possible. Early treatment may prevent some problems from developing. You should not have sex during treatment. All types of sexual activity should be avoided for at least 7 days after treatment is complete and until your sex partner or partners have been treated. Follow these instructions at home: ? Take ocdu-erl-iqfjtdd and prescription medicines as told by your health care provider. Finish all antibiotic medicine even when you start to feel better. ? Do not have sex during treatment. ? Do not have sex until at least 7 days after you and your partner or partners have finished treatment and your health care provider says it is okay. ? It is up to you to get your test results. Ask your health care provider, or the department that is doing the test, when your results will be ready. ? If you get a positive result on your gonorrhea test, tell your recent sex partners. These include any partners for oral, anal, or vaginal sex. They need to be checked for gonorrhea even if they do not have symptoms. They may need treatment, even if they get negative results on their gonorrhea tests. ? Keep all follow-up visits. This is important. How is this prevented? ? Use latex or polyurethane condoms correctly every time you have sex. ? Ask if your sex partner or partners have been tested for STIs and had negative results. ? Avoid having multiple sex partners. ? Get regular health screenings to check for STIs. Contact a health care provider if: ? Your symptoms do not get better after a few days of taking antibiotics. ? Your symptoms get worse. ? You cannot take your medicine as directed by your health care provider. ? You develop new symptoms, including: ? Eye irritation. ? Swelling, redness, warmth, and pain in the joints. ? Rashes. ? You have a fever. Summary ? Gonorrhea is a sexually transmitted infection (STI) that can infect any person. ? This infection is spread from person to person through sexual contact, including oral, anal, and vaginal sex. The infection can also pass from a person to the baby during . ? Symptoms include abnormal discharge, pain or burning while urinating, or pain in the rectum. ? This condition is treated with antibiotic medicines. Do not have sex until at least 7 days after both you and any sex partners have completed antibiotic treatment. ? Tell your health care provider if you have trouble taking your medicine, your symptoms get worse, or you have new symptoms. Keep all follow-up visits. This information is not intended to replace advice given to you by your health care provider. Make sure you discuss any quest (more content not included)... Normal [facility] ED Patient Summaryon 023 ED Patient Summary [place] [id number] Patient Discharge Instructions Person Information Name: DAVID JOYCE Age: 27 Years Arrival Date: 03/26/2023 00:03:16 Discharge Diagnosis: 1:STD (sexually transmitted disease) Primary Care Physician: Kathia VARGAS DO Provider Information Primary Provider: Mo Farias M.D. Advanced [employer] Apprentice Metal:None The exam and treatment you received in the Emergency Department were for an urgent problem and are not intended as complete care. It is important that you follow up with a doctor, nurse practitioner, or physician?s night assistant for ongoing care. If your symptoms become worse or you do not improve as expected and you are unable to reach your usual health care provider, you should return to the Emergency Department. We are available 24 hours a day. DAVID JOYCE has been given the following list of patient education materials, prescriptions and follow-up instructions: Follow-up Instructions: With: Address: When: Kathia VARGAS [address] [place], [place] [id number] Business (1) In 3 days 03/29/2023 Comments: Return to the emergency room if you develop any symptoms. In the event that this physician does not participate in your insurance network, please consult with your insurance company to find a nearby participating provider. Patient Education Materials: Gonorrhea A MESSAGE TO ALL PATIENTS REGARDING OPIOIDS PRESCRIPTION OPIOIDS: WHAT YOU NEED TO KNOW Prescription opioids can be used to help relieve aczoviwd-cl-qptajd pain and are often prescribed following a surgery or injury, or for certain health conditions. These medications can be an important part of the treatment but also come with serious risks. It is important to work with your healthcare provider to make sure you are getting the safest, most effective care. WHAT ARE THE RISKS AND SIDE EFFECTS OF OPIOID USE? Prescription opioids carry serious risks of addiction and overdose, especially with prolonged use. An opioid overdose, often marked by slowed breathing, can cause sudden . The use of prescription opioids can have a number of side effects as well, even when taken as directed: ? Tolerance?meaning you might need to take more of the medication for the same pain relief ? Physical dependence?meaning you have symptoms of withdrawal when a medication is stopped ? Increased sensitivity to pain ? Constipation ? Nausea, vomiting, and dry mouth ? Sleepiness and dizziness ? Confusion ? Depression ? Low levels of testosterone that can result in lower sex drive, energy, and strength ? Itching and sweating RISKS ARE GREATER WITH: ? History of drug misuse, substance use disorder, or overdose ? Mental health conditions (such as depression or anxiety) ? Sleep apnea ? Older age (65 years and older) ? Avoid alcohol while taking prescription opioids. Also, unless specifically advised by your health care provider, medications to avoid include: ? Benzodiazepines (such as Xanax or Valium) ? Muscle relaxants (such as Soma or Flexeril) ? Hypnotics (such as Ambien or Lunesta) ? Other prescription opioids KNOW YOUR OPTIONS Talk to your health care provider about ways to manage your pain that don?t involve prescription opioids. Some of these options may actually work better and have fewer risks and side effects. Options may include: ? Pain relievers such as acetaminophen, ibuprofen, and naproxen ? Some medication that are also used for depression or seizures ? Physical therapy and exercise ? Cognitive behavioral therapy, a psychological, goal-directed approach, in which patients learn how to modify physical, behavioral, and emotional triggers of pain and stress. IF YOU ARE PRESCRIBED OPIOIDS FOR PAIN: ? Never take opioids in greater amounts or more often than prescribed. ? Follow up with your primary health care provider. o Work together to create a plan on how to manage your pain. o Talk about ways to help manage your pain that don?t involve prescription opioids. o Talk about any and all concerns and side effects. ? Help prevent misuse and abuse o Never sell or share prescription opioids. o Never use another person?s prescription opioids. ? Store prescription opioids in a secure place and out of reach of others (this may include visitors, children, friends, and family). ? Safely dispose of unused prescription opioids: Find your community drug take-back program or your pharmacy mail-back program, or flush them down the toilet, following guidance from the Food and Drug Administration (www.fda.gov/Drugs/R esourcesForYou). ? Visit www.cdc.gov/drugover dose to learn about the risks of opioids abuse and overdose. ? If you believe you may be struggling with addiction, tell your health group care worker and ask for (more content not included)... Normal [facility] ABO AND RH TYPEon 06-11-2022 ABO and Rh group Nom (Bld) ABO Rh Typing B Rh Positive Normal [facility] Comment on above: Performed By: #### A CATALINA #### [facility] [address] [place] [address] Dr. Nicol Danielson CBC AUTO DIFFon 06-11-2022 BASO # 0.0 103/ul Normal 0.0-0.1 [facility] Comment on above: Performed By: #### C MP, LIPA, JANI #### [facility] [address] [place] [address] Dr. Nicol Danielson Basophils/100 WBC (Bld) 0.2 % Normal 0.2-2.0 [facility] Comment on above: Performed By: #### C MP, LIPA, JANI #### [facility] [address] [place] [address] Dr. Nicol Danielson EO # 0.0 103/ul Normal 0.0-0.[address] [facility] Comment on above: Performed By: #### C MP, LIPA, JANI #### [facility] [address] [place] [address] Dr. Nicol Danielson Eosinophils/100 WBC (Bld) 0.4 % Critically low 0.9-7.0 [facility] Comment on above: Performed By: #### C MP, LIPA, JANI #### [facility] [address] [place] [address] Dr. Nicol Danielson Erythrocyte distribution width (RBC) [Ratio] 16.2 % Critically high 11.0-15.0 [facility] Comment on above: Performed By: #### C MP, LIPA, JANI #### [facility] [address] [place] [address] Dr. Nicol Danielson Hematocrit (Bld) [Volume fraction] 33.7 % Critically low 36.0-48.0 [facility] Comment on above: Performed By: #### C MP, LIPA, JANI #### [facility] [address] [place] [address] Dr. Nicol Danielson Hemoglobin (Bld) [Mass/Vol] 10.7 g/dL Critically low 12.0-16.0 [facility] Comment on above: Performed By: #### C SHEREE BOO AMY #### [facility] [address] [place] [address] Dr. Nicol Danielson IG # 0.03 10e3/ul Normal 0.00-0.03 [facility] Comment on above: Performed By: #### C SHEREE BOO, JANI #### [facility] [address] [place] [address] Dr. Nicol Danielson IG % 0.4 % Normal 0.0-0.5 [facility] Comment on above: Performed By: #### C SHEREE BOO, JANI #### [facility] [address] [place] [address] Dr. Nicol Danielson LYMPH # 1.3 103/ul Normal 1.2-3.[address] [facility] Comment on above: Performed By: #### C SHEREE BOO, JANI #### [facility] [address] [place] [address] Dr. Nicol Danielson Lymphocytes/100 WBC (Bld) 16.1 % Critically low 20.5-60.[address] [facility] Comment on above: Performed By: #### C SHEREE BOO AMY #### [facility] [address] [place] [address] Dr. Nicol Danielson MANUAL DIFF REQ NO Normal [facility] Comment on above: Performed By: #### C SHEREE BOO, JANI #### [facility] [address] [place] [address] Dr. Nicol Danielson MCH (RBC) [Entitic mass] 26.8 pg Normal 26.7-34.[address] [facility] Comment on above: Performed By: #### C SHEREE BOO, JANI #### [facility] [address] [place] [address] Dr. Nicol Danielson MCHC (RBC) [Mass/Vol] 31.8 g/dL Normal 29.9-35.[address] [facility] Comment on above: Performed By: #### C SHEREE BOO AMY #### [facility] [address] [place] [address] Dr. Nicol Danielson MCV (RBC) [Entitic vol] 84.3 fL Normal 81.0-99.0 [facility] Comment on above: Performed By: #### C MP, LIPA, JANI #### [facility] [address] [place] [address] Dr. Nicol Danielson MONO # 0.6 103/ul Normal 0.3-0.8 [facility] Comment on above: Performed By: #### C MP, LIPA, JANI #### [facility] [address] [place] [address] Dr. Nicol Danielson Monocytes/100 WBC (Bld) 7.8 % Normal 1.7-12.0 [facility] Comment on above: Performed By: #### C MP, LIPA, JANI #### [facility] [address] [place] [address] Dr. Nicol Danielson NEUT # 6.1 103/ul Normal 1.4-6.5 [facility] Comment on above: Performed By: #### C MP, LIPA, JANI #### [facility] [address] [place] [address] Dr. Nicol Danielson Neutrophils/100 WBC (Bld) 75.1 % Critically high 43.0-75.0 [facility] Comment on above: Performed By: #### C MP, LIPA, JANI #### [facility] [address] [place] [address] Dr. Nicol Danielson Platelet mean volume (Bld) [Entitic vol] 10.5 fL Normal 9.5-13.[address] [facility] Comment on above: Performed By: #### C MP, LIPA, JANI #### [facility] [address] [place] [address] Dr. Nicol Danielson PLT 211 103/ul Normal 150-[address] [facility] Comment on above: Performed By: #### C MP, LIPA, JANI #### [facility] [address] [place] [address] Dr. Nicol Danielson RBC 4.00 106/ul Critically low 4.20-5.40 [facility] Comment on above: Performed By: #### C MP, LIPA, JANI #### [facility] [address] [place] [address] Dr. Nicol Danielson WBC 8.1 103/ul Normal 4.0-11.0 [facility] Comment on above: Performed By: #### C MP, LIPA, JANI #### [facility] [address] [place] [address] Dr. Nicol Danielson ER URINE PROFILEon 2 Bilirubin Ql (U) Negative Normal NEGATIVE [facility] Comment on above: Performed By: #### C MP, LIPA, JANI #### [facility] [address] [place] [address] Dr. Nicol Danielson Clarity (U) SL CLOUDY Abnormal CLEAR [facility] Comment on above: Performed By: #### C MP, LIPA, JANI #### [facility] [address] [place] [address] Dr. Nicol Danielson Color (U) RED Abnormal YELLOW [facility] Comment on above: Performed By: #### C MP, LIPA, JANI #### [facility] [address] [place] [address] Dr. Nicol NELSON A micrscopic examination will be performed if indicated. Normal [facility] Comment on above: Performed By: #### C MP, LIPA, JANI #### [facility] [address] [place] [address] Dr. Nicol Danielson Glucose Ql (U) Negative Normal NEGATIVE [facility] Comment on above: Performed By: #### C MP, LIPA, JANI #### [facility] [address] [place] [address] Dr. Nicol Danielson Hemoglobin Ql (U) LARGE Abnormal NEGATIVE [facility] Comment on above: Performed By: #### C MP, LIPA, JANI #### [facility] [address] [place] [address] Dr. Nicol Danielson Ketones Ql (U) Negative Normal NEGATIVE [facility] Comment on above: Performed By: #### C MP, LIPA, JANI #### [facility] [address] [place] [address] Dr. Nicol Danielson LEUKOCYTES Negative Normal NEGATIVE [facility] Comment on above: Performed By: #### C MICHELE BOOA, JANI #### [facility] [address] [place] [address] Dr. Nicol Danielson Nitrite Ql (U) Negative Normal NEGATIVE [facility] Comment on above: Performed By: #### C MICHELE BOOA, JANI #### [facility] [address] [place] [address] Dr. Nicol Danielson pH (U) 6.0 [pH] Normal 5-[address] [facility] Comment on above: Performed By: #### C SHEREE BOO, JANI #### [facility] [address] [place] [address] Dr. Nicol Danielson SPEC GRAVITY 1.025 Normal 1.005-<=1.025 [facility] Comment on above: Performed By: #### C MICHELE BOOA, JANI #### [facility] [address] [place] [address] Dr. Nicol Danielson UA PROTEIN TRACE Normal NEGATIVE/ TRACE [facility] Comment on above: Performed By: #### C SHEREE BOO, JANI #### [facility] [address] [place] [address] Dr. Nicol Danielson UR MICRO IND INDICATED Normal [facility] Comment on above: Performed By: #### C SHEREE BOO, JANI #### [facility] [address] [place] [address] Dr. Nicol Danielson Urobilinogen Qn (U) 0.2 {Raj'U}/dL Normal 0.2 - 1. [address] [facility] Comment on above: Performed By: #### C MICHELE BOOA, JANI #### [facility] [address] [place] [address] Dr. Nicol Danielson PREG QUANT HCGon 06-11-2022 HCG QUANT 6683 mIU/mL Normal [facility] Comment on above: Performed By: #### C MICHELE BOOA, JANI #### [facility] [address] [place] [address] [address] Nicol Danielson HCG RANGE SEE BELOW Normal [facility] Comment on above: Result Comment: 5-50 0.2-1 WEEK 50-500 1-2 WEEKS 100-5,000 2-3 WEEKS 500-10,000 3-4 WEEKS 1,000-50,000 4-5 WEEKS 10,000-100,000 5-6 WEEKS 15,000-200,000 6-8 WEEKS 10,000-100,000 2-3 MONTHS Performed By: #### C SHEREE BOO AMY #### [facility] [address] [place] [address] Dr. Nicol Danielson PROF CHEM 8 (BAS METB)on Anion gap [Moles/Vol] 10.9 mmol/L Normal [facility] Comment on above: Performed By: #### B MP #### [facility] [address] [place] [address] Dr. Nicol Danielsno Calcium [Mass/Vol] 8.1 mg/dL Critically low 8.5-10.1 [facility] Comment on above: Performed By: #### B MP #### [facility] [address] [place] [address] Dr. Nicol Danielson Chloride [Moles/Vol] 107 mmol/L Normal 98-107 [facility] Comment on above: Performed By: #### B MP #### [facility] [address] [place] [address] Dr. Nicol Danielson CO2 [Moles/Vol] 26.3 mmol/L Normal 21.0-32.0 [facility] Comment on above: Performed By: #### B MP #### [facility] [address] [place] [address] Dr. Nicol Danielson Creatinine [Mass/Vol] 0.59 mg/dL Normal 0.55-1.02 [facility] Comment on above: Performed By: #### B MP #### [facility] [address] [place] [address] Dr. Nicol Danielson EGFR-AF CHILEAN >60 Normal >=60 [facility] Comment on above: Performed By: #### B MP #### [facility] [address] [place] [address] [address] Nicol Danielson EGFR-NON AF CHILEAN >60 Normal >=60 [facility] Comment on above: Performed By: #### B MP #### [facility] [address] [place] [address] [address] Nicol Danielson Glucose [Mass/Vol] 89 mg/dL Normal 74-106 [facility] Comment on above: Performed By: #### B MP #### [facility] [address] [place] [address] Dr. Nicol Danielson Potassium [Moles/Vol] 3.2 mmol/L Critically low 3.5-5.1 [facility] Comment on above: Performed By: #### B MP #### [facility] [address] [place] [address] Dr. Nicol Danielson Sodium [Moles/Vol] 141 mmol/L Normal 136-145 [facility] Comment on above: Performed By: #### B MP #### [facility] [address] [place] [address] Dr. Nicol Danielson Urea nitrogen [Mass/Vol] 7.0 mg/dL Normal 7.0-18.0 [facility] Comment on above: Performed By: #### B MP #### [facility] [address] [place] [address] Dr. Nicol Danielson Urea nitrogen/Creatinine [Mass ratio] 11.9 mg/mg Normal [facility] Comment on above: Performed By: #### B MP #### [facility] [address] [place] [address] Dr. Nicol Danielson URINE MICROSCOPIC ONLYon BACTERIA NONE SEEN Normal NONE SEEN [facility] Comment on above: Performed By: #### C SHEREE BOO AMY #### [facility] [address] [place] [address] Dr. Nicol Danielson Bacteria identified Cx Nom (U) NOT INDICATED Normal [facility] Comment on above: Performed By: #### C SHEREE BOO AMY #### [facility] [address] [place] [address] Dr. Nicol Danielson CAST NONE SEEN Normal NONE SEEN [facility] Comment on above: Performed By: #### C MP, LIPA, JANI #### [facility] [address] [place] [address] Dr. Nicol Danielson Crystals LM Nom (Urine sed) NONE SEEN Normal NONE SEEN [facility] Comment on above: Performed By: #### C MP, LIPA, JANI #### [facility] [address] [place] [address] Dr. Nicol Danielson Epithelial cells LM Ql (Urine sed) RARE Normal NONE SEEN /RARE [facility] Comment on above: Performed By: #### C MP, LIPA, JANI #### [facility] [address] [place] [address] Dr. Nicol Danielson MUCOUS NONE SEEN Normal NONE SEEN [facility] Comment on above: Performed By: #### C MP, LIPA, JANI #### [facility] [address] [place] [address] Dr. Nicol Danieslon RBC 75-100 Abnormal 0-[address] [facility] Comment on above: Performed By: #### C MP, LIPA, JANI #### [facility] [address] [place] [address] Dr. Nicol Danielson WBC 2-5 Abnormal [address] SEEN [facility] Comment on above: Performed By: #### C MP, LIPA, JANI #### [facility] [address] [place] [address] Dr. Nicol Danielson US PREG TVon 06-11-2022 US PREG TV EXAM: US PREG TV HISTORY: Dating and viability. Leading and cramping. COMPARISON: 05/29/2022 TECHNIQUE: A pelvic ultrasound was performed. FINDINGS: No intrauterine sac is identified at this time. The previously identified intrauterine gestation is no longer observed. No abnormal fluid collections are seen. Evaluation of the maternal adnexa demonstrates no discrete abnormality. A small amount of free fluid is detected in the cul-de-sac. IMPRESSION: Findings consistent with a complete spontaneous miscarriage. Electronically authenticated by: MADDI SRINIVASAN Date: 2022-06-11 15:[address] [facility] AMYLASEon 05-29-2022 Amylase [Catalytic activity/Vol] 75 U/L Normal 25-[address] [facility] Comment on above: Performed By: #### C MP, SHEREE, JANI #### [facility] [address] [place] [address] Dr. Nicol Danielson CBC AUTO DIFFon 05-29-2022 BASO # 0.0 103/ul Normal 0.0-0.1 [facility] Comment on above: Performed By: #### C BC #### [facility] [address] [place] [address] Dr. Nicol Danielson Basophils/100 WBC (Bld) 0.6 % Normal 0.2-2.0 [facility] Comment on above: Performed By: #### C BC #### [facility] [address] [place] [address] Dr. Nicol Danielson EO # 0.1 103/ul Normal 0.0-0.7 [facility] Comment on above: Performed By: #### C BC #### [facility] [address] [place] [address] Dr. Nicol Danielson Eosinophils/100 WBC (Bld) 0.7 % Critically low 0.9-7.0 [facility] Comment on above: Performed By: #### C BC #### [facility] [address] [place] [address] Dr. Nicol Danielson Erythrocyte distribution width (RBC) [Ratio] 17.0 % Critically high 11.0-15.0 [facility] Comment on above: Performed By: #### C BC #### [facility] [address] [place] [address] Dr. Nicol Danielson Hematocrit (Bld) [Volume fraction] 39.9 % Normal 36.0-48.0 [facility] Comment on above: Performed By: #### C BC #### [facility] [address] [place] [address] Dr. Nicol Danielson Hemoglobin (Bld) [Mass/Vol] 12.9 g/dL Normal 12.0-16.0 [facility] Comment on above: Performed By: #### C BC #### [facility] [address] [place] [address] Dr. Nicol Danielson IG # 0.03 10e3/ul Normal 0.00-0.03 [facility] Comment on above: Performed By: #### C BC #### [facility] [address] [place] [address] Dr. Nicol Danielson IG % 0.4 % Normal 0.0-0.5 [facility] Comment on above: Performed By: #### C BC #### [facility] [address] [place] [address] Dr. Nicol Danielson LYMPH # 1.3 103/ul Normal 1.2-3.8 [facility] Comment on above: Performed By: #### C BC #### [facility] [address] [place] [address] Dr. Nicol Danielson Lymphocytes/100 WBC (Bld) 19.1 % Critically low 20.5-60.0 [facility] Comment on above: Performed By: #### C BC #### [facility] [address] [place] [address] Dr. Nicol Danielson MANUAL DIFF REQ NO Normal [facility] Comment on above: Performed By: #### C BC #### [facility] [address] [place] [address] Dr. Nicol Danielson MCH (RBC) [Entitic mass] 26.8 pg Normal 26.7-34.0 [facility] Comment on above: Performed By: #### C BC #### [facility] [address] [place] [address] Dr. Nicol Danielson MCHC (RBC) [Mass/Vol] 32.3 g/dL Normal 29.9-35.[address] [facility] Comment on above: Performed By: #### C BC #### [facility] [address] [place] [address] Dr. Nicol Danielson MCV (RBC) [Entitic vol] 82.8 fL Normal 81.0-99.0 [facility] Comment on above: Performed By: #### C BC #### [facility] [address] [place] [address] Dr. Nicol Danielson MONO # 0.5 103/ul Normal 0.3-0.[address] [facility] Comment on above: Performed By: #### C BC #### [facility] [address] [place] [address] Dr. Nicol Danielson Monocytes/100 WBC (Bld) 7.5 % Normal 1.7-12.0 [facility] Comment on above: Performed By: #### C BC #### [facility] [address] [place] [address] Dr. Nicol Danielson NEUT # 4.9 103/ul Normal 1.4-6.5 [facility] Comment on above: Performed By: #### C BC #### [facility] [address] [place] [address] Dr. Nicol Danielson Neutrophils/100 WBC (Bld) 71.7 % Normal 43.0-75.0 [facility] Comment on above: Performed By: #### C BC #### [facility] [address] [place] [address] Dr. Nicol Danielson Platelet mean volume (Bld) [Entitic vol] 10.6 fL Normal 9.5-13.[address] [facility] Comment on above: Performed By: #### C BC #### [facility] [address] [place] [address] Dr. Nicol Danielson PLT 202 103/ul Normal 150-[address] [facility] Comment on above: Performed By: #### C BC #### [facility] [address] [place] [address] Dr. Nicol Danielson RBC 4.82 106/ul Normal 4.20-5.[address] [facility] Comment on above: Performed By: #### C BC #### [facility] [address] [place] [address] Dr. Nicol Danielson WBC 6.8 103/ul Normal 4.0-11.[address] [facility] Comment on above: Performed By: #### C BC #### [facility] [address] [place] [address] Dr. Nicol Danielson ER URINE PROFILEon 2 Bilirubin Ql (U) Negative Normal NEGATIVE [facility] Comment on above: Performed By: #### C MP, LIPA, JANI #### [facility] [address] [place] [address] Dr. Nicol Danielson Clarity (U) CLEAR Normal CLEAR [facility] Comment on above: Performed By: #### C MP, LIPA, JANI #### [facility] [address] [place] [address] Dr. Nicol Danielson Color (U) LT. YELLOW Normal YELLOW [facility] Comment on above: Performed By: #### C MP, LIPA, JANI #### [facility] [address] [place] [address] Dr. Nicol Danielson ERUIZAIAH A micrscopic examination will be performed if indicated. Normal [facility] Comment on above: Performed By: #### C MP, LIPA, JANI #### [facility] [address] [place] [address] Dr. Nicol Danielson Glucose Ql (U) Negative Normal NEGATIVE [facility] Comment on above: Performed By: #### C MP, LIPA, JANI #### [facility] [address] [place] [address] Dr. Nicol Danielson Hemoglobin Ql (U) Negative Normal NEGATIVE [facility] Comment on above: Performed By: #### C MP, LIPA, JANI #### [facility] [address] [place] [address] Dr. Nicol Danielson Ketones Ql (U) Negative Normal NEGATIVE [facility] Comment on above: Performed By: #### C MP, LIPA, JANI #### [facility] [address] [place] [address] Dr. Nicol Danielson LEUKOCYTES Negative Normal NEGATIVE [facility] Comment on above: Performed By: #### C MP, LIPA, JANI #### [facility] [address] [place] [address] Dr. Nicol Danielson Nitrite Ql (U) Negative Normal NEGATIVE [facility] Comment on above: Performed By: #### C MP, LIPA, JANI #### [facility] [address] [place] [address] Dr. Nicol Danielson pH (U) 7.0 [pH] Normal 5-9 [facility] Comment on above: Performed By: #### C MICHELE BOOA, JANI #### [facility] [address] [place] [address] Dr. Nicol Danielson SPEC GRAVITY 1.020 Normal 1.005-<=1.025 [facility] Comment on above: Performed By: #### C EMA LIPA, JANI #### [facility] [address] [place] [address] Dr. Nicol Danielson UA PROTEIN Negative Normal NEGATIVE/ TRACE [facility] Comment on above: Performed By: #### C EMA LIPA, JANI #### [facility] [address] [place] [address] Dr. Nicol Danielson UR MICRO IND NOT INDICATED Normal [facility] Comment on above: Performed By: #### C MICHELE BOOA, JANI #### [facility] [address] [place] [address] Dr. Nicol Danielson Urobilinogen Qn (U) 0.2 {Raj'U}/dL Normal 0.2 - 1. 0 [facility] Comment on above: Performed By: #### C MICHELE BOOA, JANI #### [facility] [address] [place] [address] Dr. Nicol Danielson LIPASEon 05-29-2022 Lipase [Catalytic activity/Vol] 104.0 U/L Normal 73.0-393.0 [facility] Comment on above: Performed By: #### C EMA LIPA, JANI #### [facility] [address] [place] [address] Dr. Nicol Danielson URon 05-29-2022 , QUAL Positive Abnormal NEGATIVE [facility] Comment on above: Performed By: #### C EMA LIPA, JANI #### [facility] [address] [place] [address] Dr. Nicol Danielson PROF 14(COMP METB)on 022 Albumin [Mass/Vol] 3.6 g/dL Normal 3.4-5.0 [facility] Comment on above: Performed By: #### C MP, LIPA, JANI #### [facility] [address] [address] [address] Nicol Danielson Albumin/Globulin [Mass ratio] 1.1 {ratio} Normal [facility] Comment on above: Performed By: #### C MP, LIPA, JANI #### [facility] [address] [address] [address] Nicol Danielson ALP [Catalytic activity/Vol] 49 U/L Normal 46-116 [facility] Comment on above: Performed By: #### C MP, LIPA, JANI #### [facility] [address] [address] [address] Nicol Danielson ALT [Catalytic activity/Vol] 12 U/L Critically low 14-59 [facility] Comment on above: Performed By: #### C MP, LIPA, JANI #### [facility] [address] [address] [address] Nicol Danielson Anion gap [Moles/Vol] 11.2 mmol/L Normal [facility] Comment on above: Performed By: #### C MP, LIPA, JANI #### [facility] [address] [address] [address] Nicol Danielson AST [Catalytic activity/Vol] 10 U/L Critically low 15-37 [facility] Comment on above: Performed By: #### C MP, LIPA, JANI #### [facility] [address] [address] [address] Nicol Danielson Bilirubin [Mass/Vol] 0.3 mg/dL Normal 0.2-1.0 [facility] Comment on above: Performed By: #### C MP, LIPA, JANI #### [facility] [address] [address] [address] Nicol Danielson Calcium [Mass/Vol] 8.7 mg/dL Normal 8.5-10.1 [facility] Comment on above: Performed By: #### C MP, LIPA, JANI #### [facility] [address] [address] [address] Nicol Danielson Chloride [Moles/Vol] 103 mmol/L Normal 98-107 [facility] Comment on above: Performed By: #### C MP, LIPA, JANI #### [facility] [address] [place] [address] Dr. Nicol Danielson CO2 [Moles/Vol] 24.8 mmol/L Normal 21.0-32.0 [facility] Comment on above: Performed By: #### C MP LIPA, JANI #### [facility] [address] [place] [address] Dr. Nicol Danielson Creatinine [Mass/Vol] 0.56 mg/dL Normal 0.55-1.02 [facility] Comment on above: Performed By: #### C MP LIPA, JANI #### [facility] [address] [place] [address] Dr. Nicol Danielson EGFR-AF CHILEAN >60 Normal >=60 [facility] Comment on above: Performed By: #### C MP LIPA, JANI #### [facility] [address] [place] [address] Dr. Nicol Danielson EGFR-NON AF CHILEAN >60 Normal >=60 [facility] Comment on above: Performed By: #### C MP LIPA, JANI #### [facility] [address] [place] [address] Dr. Nicol Danielson Globulin (S) [Mass/Vol] 3.3 g/dL Normal [facility] Comment on above: Performed By: #### C MP LIPA, JANI #### [facility] [address] [place] [address] Dr. Nicol Danielson Glucose [Mass/Vol] 98 mg/dL Normal 74-106 [facility] Comment on above: Performed By: #### C MP LIPA, JANI #### [facility] [address] [place] [address] Dr. Nicol Danielosn Potassium [Moles/Vol] 4.0 mmol/L Normal 3.5-5.1 [facility] Comment on above: Performed By: #### C MP, LIPA, JANI #### [facility] [address] [place] [address] Dr. Nicol Danielson Protein [Mass/Vol] 6.9 g/dL Normal 6.4-8.2 [facility] Comment on above: Performed By: #### C SHEREE BOO AMY #### [facility] [address] [place] [address] Dr. Nicol Danielson Sodium [Moles/Vol] 135 mmol/L Critically low 136-145 [facility] Comment on above: Performed By: #### C SHEREE BOO, JANI #### [facility] [address] [address] [address] Nicol Danielson Urea nitrogen [Mass/Vol] 6.0 mg/dL Critically low 7.0-18.0 [facility] Comment on above: Performed By: #### C SHEREE BOO AMY #### [facility] [address] [place] [address] Dr. Nicol Danielson Urea nitrogen/Creatinine [Mass ratio] 10.7 mg/mg Normal [facility] Comment on above: Performed By: #### C SHEREE BOO AMY #### [facility] [address] [place] [address] Dr. Nicol Danielson US PREG TVon 05-29-2022 US PREG TV EXAMINATION: US PREG TV HISTORY: UNSPECIFIED ABDOMINAL PAIN COMPARISON: No relevant comparison available. FINDINGS: Oliveira intrauterine gestation Gestational sac: 2.38 cm, 7 weeks 0 days CRL: 1.0 cm, 7 weeks 1 day Yolk sac: 0.22 cm Heart rate: 146 bpm Cervix: Closed, 4.9 cm. The uterus is normal in appearance, anteverted The right ovary measures 2.1 x 3.4 x 2.4 cm. Corpus luteal cyst. Left ovary is normal in appearance measuring 3.3 x 2.2 x 2.4 cm Clinical age: Unknown Ultrasound age: 7 weeks 1 day Ultrasound OLIVIER: 01/14/2023 IMPRESSION: Viable oliveira intrauterine gestation measuring 7 weeks 1 day Electronically authenticated by: SAMEER PIERRE Date: 2022-05-29 12:[address] [facility] ER URINE PROFILEon 1 Bilirubin Ql (U) Unable to perform testing due to color interference. Abnormal NEGATIVE [facility] Comment on above: Performed By: #### E KERRI LEACH PREGU #### [facility] [address] [address] Raysa Candelaria Clarity (U) CLEAR Normal CLEAR [facility] Comment on above: Performed By: #### KERRI OWENS, PREGU #### [facility] [address] [id number] Raysa Candelaria Color (U) RED Abnormal YELLOW [facility] Comment on above: Performed By: #### KERRI OWENS, PREGU #### [facility] [address] [place] [address] Raysa Candelaria ERUAHD A micrscopic examination will be performed if indicated. Normal [facility] Comment on above: Performed By: #### KERRI OWENS, PREGU #### [facility] [address] [place] [address] Raysa Candelaria Glucose Ql (U) Unable to perform testing due to color interference. Abnormal NEGATIVE [facility] Comment on above: Performed By: #### KERRI OWENS, PREGU #### [facility] [address] [place] [address] Raysa Candelaria Hemoglobin Ql (U) Unable to perform testing due to color interference. Abnormal NEGATIVE [facility] Comment on above: Performed By: #### KERRI OWENS, PREGU #### [facility] [address] [place] [address] Raysa Candelaria Ketones Ql (U) Unable to perform testing due to color interference. Abnormal NEGATIVE [facility] Comment on above: Performed By: #### KERRI OWENS, PREGU #### [facility] [address] [place] [address] Raysa Candelaria LEUKOCYTES Unable to perform testing due to color interference. Abnormal NEGATIVE [facility] Comment on above: Performed By: #### KERRI OWENS, PREGU #### [facility] [address] [place] [address] Raysa Candelaria Nitrite Ql (U) Unable to perform testing due to color interference. Abnormal NEGATIVE [facility] Comment on above: Performed By: #### E RUR, UMICRO, PREGU #### [facility] [address] [id number] Raysa Gaona pH Unable to perform testing due to color interference. Abnormal 5-[address] [facility] Comment on above: Performed By: #### E RUR, UMICRO, PREGU #### [facility] [address] [address] Raysa Gaona SPEC GRAVITY 1.025 Normal 1.005-<=1.025 [facility] Comment on above: Performed By: #### E RUR, UMICRO, PREGU #### [facility] [address] [address] Raysa Gaona UA PROTEIN Unable to perform testing due to color interference. Normal NEGATIVE/ TRACE [facility] Comment on above: Performed By: #### E RUR, UMICRO, PREGU #### [facility] [address] [place] [address] Raysa Gaona UR MICRO IND INDICATED Normal [facility] Comment on above: Performed By: #### E RUR, UMICRO, PREGU #### [facility] [address] [address] Raysa Gaona UROBILINOGEN Unable to perform testing due to color interference. Normal 0.2 - 1.[address] [facility] Comment on above: Performed By: #### E RUR, UMICRO, PREGU #### [facility] [address] [address] Raysa Gaona URon 06-19-2021 , QUAL Negative Normal NEGATIVE [facility] Comment on above: Performed By: #### E RUR, UMICRO, PREGU #### [facility] [address] [id number] Raysa Gaona URINE MICROSCOPIC ONLYon BACTERIA NONE SEEN Normal NONE SEEN [facility] Comment on above: Performed By: #### C MP, LIPA, JANI #### [facility] [address] [address] [address] Nicol Danielson Bacteria identified Cx Nom (U) NOT INDICATED Normal [facility] Comment on above: Performed By: #### C MP, LIPA, JANI #### [facility] [address] [place] [address] Dr. Nicol Danielson CAST NONE SEEN Normal NONE SEEN [facility] Comment on above: Performed By: #### C MP, LIPA, JANI #### [facility] [address] [place] [address] Dr. Nicol Danielson Crystals LM Nom (Urine sed) NONE SEEN Normal NONE SEEN [facility] Comment on above: Performed By: #### C MP, LIPA, JANI #### [facility] [address] [place] [address] Dr. Nicol Danielson Epithelial cells LM Ql (Urine sed) RARE Normal NONE SEEN /RARE [facility] Comment on above: Performed By: #### C MP, LIPA, JANI #### [facility] [address] [place] [address] Dr. Nicol Danielson MUCOUS NONE SEEN Normal NONE SEEN [facility] Comment on above: Performed By: #### C MP, LIPA, JANI #### [facility] [address] [place] [address] Dr. Nicol Danielson RBC 50-75 Abnormal 0-[address] [facility] Comment on above: Performed By: #### C MP, LIPA, JANI #### [facility] [address] [place] [address] Dr. Nicol Danielson WBC 0-2 Abnormal NONE SEEN [facility] Comment on above: Performed By: #### C MP, LIPA, JANI #### [facility] [address] [place] [address] Dr. Nicol Danielson US PELVIS TRANSVAGon 021 US PELVIS TRANSVAG EXAMINATION: US PELVIS TRANSVAG HISTORY: Lower abdominal pain , heavy bleeding and cramping COMPARISON: No relevant comparison available. TECHNIQUE: Transabdominal and transvaginal sonographic examination. FINDINGS: UTERUS: Normal size and appearance. Uterus size: 9.4 x 5.2 x 4.2 cm ENDOMETRIUM: Normal homogeneous appearance. Endometrial thickness: 7 mm RIGHT OVARY: Anechoic 2.6 cm benign-appearing cyst adjacent to the ovary. Several small follicles within ovary. Duplex Doppler demonstrates normal waveform and flow; resistive index 0.5. Ovary size: 3.7 x 3.0 x 3.1 cm LEFT OVARY: Normal size and appearance. Contain several follicles. Duplex Doppler demonstrates normal waveform and flow; resistive index 0.5. Ovary size: 3.6 x 2.7 x 2.5 cm CUL-DE-SAC: Unremarkable. No significant free fluid. BLADDER: Unremarkable. OTHER: None. IMPRESSION: 1. Normal appearance of the uterus and endometrium. 2. Adjacent the right ovary is a 2.6 cm benign-appearing paraovarian cysts versus exophytic ovarian cyst. Electronically authenticated by: DEYA NORRIS Date: 2021-06-19 09:[address] [facility] Amphetamine Screen Ql (U)on 03-28-2021 Amphetamines Ql (U) Negative Negative [facility] Barbiturates [Presence] in U rineon 03-28-2021 Barbiturates Ql (U) Negative Negative [facility] Benzodiazepines [Presence] i n Urineon 03-28-2021 Benzodiazepines Ql (U) Negative Negative [facility] Cannabinoids [Presence] in U rine by Screen methodon 03-28-2021 Cannabinoids Screen Ql (U) Positive Negative [facility] Comment on above: These are unconfirme d results and should not be used for legal purposes. Drug Cut-Off Concentration: AMPH 1000 ng/mL BRYAN 200 ng/mL TERESA 200 ng/mL COCM 300 ng/mL OP 300 ng/mL PCP 25 ng/mL THC 20 ng/mL Drug Screen,Urineon 03-28-20 21 Amphetamine Screen,Urine Negative Normal Negative [facility] Comment on above: Performed By: #### U RDS #### [facility] [address] Barbiturate Screen,Urine Negative Normal Negative [facility] Comment on above: Performed By: #### U RDS #### [facility] [address] [place] [address] [place] Benzodiazepines Screen,Urine Negative Normal Negative [facility] Comment on above: Performed By: #### U RDS #### [facility] [address] [place] [address] [place] Cannabinoid Screen,Urine Positive High Negative [facility] Comment on above: Result Comment: Thes e are unconfirmed results and should not be used for legal purposes. Drug Cut-Off Concentration: AMPH 1000 ng/mL BRYAN 200 ng/mL TERESA 200 ng/mL COCM 300 ng/mL OP 300 ng/mL PCP 25 ng/mL THC 20 ng/mL PERFORMED BY: [place] [address] PATHOLOGIST SMOKE JUMPER KRISTY JACK M.D. Performed By: #### U RDS #### [address] Cocaine Screen,Urine Negative Normal Negative [facility] Comment on above: Performed By: #### U RDS #### [address] Opiate Screen,Urine Negative Normal Negative [facility] Comment on above: Performed By: #### U RDS #### [address] Phencyclidine Screen,Urine Negative Normal Negative [facility] Comment on above: Performed By: #### U RDS #### [address] HCG ( test) IAbelle d Ql (U)on 03-28-2021 HCG ( test) Ql (U) Negative [facility] HCG,Urineon 03-28-2021 Beta HCG ( test) Ql (U) Negative Normal [facility] Comment on above: Result Comment: PERF ORMED BY: [place] [address] PATHOLOGIST SMOKE JUMPER KRISTY JACK M.D. Performed By: #### U HCG #### [place] [address] [place] Mihir 03-28-2021 L Specimen: [id number] Received: 03/28/21 Status: NEAL Oliva Num: [id number] Spec Type: Surgical Subm Dr: Maury Gutiérrez DO Tissues: A Ganglion Cyst (GANGLION CYST RT WRIST) Procedures: HE Stain, Gross/Micro L3 Patient Age/Sex Location Account Attending Physician David Joyce / [place] [id number] Maury Gutiérrez DO SPEC NUM: [id number] RECD: 03/28/21 STATUS: WALESKAMaría Elena OLIVA NUM: [id number] SCOTT: 03/28/21- SUBM DR: Maury Gutiérrez DO ENTERED: 03/28/[address]: SASKIA TYPE: Surgical DEPT: S ORDERED: HE Stain, Gross/Micro L3 ORDERED: HE Stain, Gross/Micro L3 Pathological Diagnosis Ganglion cyst, right wrist, excision: - Fibroadipose tissue with partial membranous cystic wall. Clinical Information Wrist pain Gross Description Received in formalin labeled with the patient's name, number and ganglion cyst right wrist are multiple fragments of yellow-chávez fibrofatty tissue, aggregating 1.5 x 1.5 x 1 cm. Sectioning reveals yellow-chávez fibrofatty cut surfaces with no obvious mass or lesion identified. Entirely submitted in one cassette labeled A1. (SM/YJ) Microscopic Description One glass slide with H E stained material has been examined. The microscopic findings support the above pathologic diagnosis. CPT Codes 05475 Specimen: [id number] Received: 03/28/21 Status: NEAL Oliva Num: [id number] Spec Type: Surgical Subm Dr: Maury Gutiérrez DO Tissues: A Ganglion Cyst (GANGLION CYST RT WRIST) Procedures: HE Stain, Gross/Micro L3 Patient: David Joyce [id number] (Continued) Signed (signature on file) Kade Leon MD 03/29/21 1359 Normal [facility] - Drug toxicology on 03-28-2021 Opiates Ql (U) Negative Negative [facility] Phencyclidine Screen Ql (U)o n 03-28-2021 Phencyclidine Ql (U) Negative Negative [facility] Urine cocaine detectionon Cocaine Ql (U) Negative Negative [facility] COVID-19 FRMCon 03-24-2021 SARS-CoV-2 (COVID-19) RNA GILBERTO+probe Ql (Unsp spec) Negative Normal Negative [facility] Comment on above: Order Comment: Healt hcare Worker?: N Result Comment: Testing for SARS-CoV-2 by RT-PCR This test was developed and its performance characteristics determined by [employer]) and validated at the [facility]. This test has not been FDA cleared or approved. This test has been authorized by FDA under an Emergency Use Authorization (EUA). This test has been validated in accordance with the FDA's Guidance Document (Policy for Diagnostics Testing in Laboratories Certified to Perform High Complexity Testing under CLIA prior to Emergency Use Authorization for Coronavirus Disease-2019 during the Public Health Emergency) issued on January 07, 2020. This test is only authorized for the duration of time the declaration that circumstances exist justifying the authorization of the emergency use of in vitro diagnostic tests for detection of SARS-CoV-2 virus and/or diagnosis of COVID-19 infection under section 564(b)(1) of the Act, 21 U.S.C. 360bbb-3(b)(1), unless the authorization is terminated or revoked sooner. PERFORMED BY: [place] [address] [place] [address] PATHOLOGIST SMOKE JUMPER KRISTY JACK M.D. Performed By: #### C OVID 19 [facility] [place] [facility] #### [place] [id number] [facility] COVID-19 Positive/Negativeon 03-24-2021 SARS-CoV-2 (COVID-19) N gene GILBERTO+probe Ql (Resp) Negative Negative [facility] Comment on above: Testing for SARS-CoV -2 by RT-PCRThis test was developed and its performance characteristics determined by [employer] ([employer]) and validated at the [facility]. This test has not been FDA cleared or approved. This test has been authorized by FDA under an Emergency Use Authorization (EUA). This test has been validated in accordance with the FDA's Guidance Document (Policy for Diagnostics Testing in Laboratories Certified to Perform High Complexity Testing under CLIA prior to Emergency Use Authorization for Coronavirus Disease-2019 during the Public Health Emergency) issued on January 07, 2020. This test is only authorized for the duration of time the declaration that circumstances exist justifying the authorization of the emergency use of in vitro diagnostic tests for detection of SARS-CoV-2 virus and/or diagnosis of COVID-19 infection under section 564(b)(1) of the Act, 21 U.S.C. 360bbb-3(b)(1), unless the authorization is terminated or revoked sooner. MR wrist RT wo conon 021 MR wrist RT wo con [facility] Main [place] [address] [place] [address] MRI Report Signed Patient: David Joyce MR#: [id number] : 1995 Acct:[id number] Age/Sex: 25 / F ADM Date: 03/09/21 Loc: MR Room: Type: [facility] Attending Dr: Maury Gutiérrez DO Ordering Provider: Maury Gutiérrez DO Date of Service: 03/09/21 MR/MR wrist RT wo con: [id number] Copies to: Maury Gutiérrez DO MRI the RIGHT wrist without contrast TECHNIQUE: Multiplanar T1 and T2-weighted imaging of the RIGHT wrist obtained without contrast. HISTORY: RIGHT wrist ganglion cyst. Motion artifact degrades imaging. Marker is placed in region of the ganglion cyst. The cyst is located in the dorsum of the wrist near the lunate and capitate articulation. Cyst is not well defined with multiloculation. Thin septations are present. Cross-sectional measurements are 9 x 4 mm. The coronal dimension is 9 mm. Bony structures intact. No bone marrow edema. No cortical destruction. No muscle or tendon abnormality. Subcutaneous tissues unremarkable. MR/MR wrist RT wo con IMPRESSION: Lobulated and septated 9 mm ganglion cyst of the dorsum of the wrist corresponding with palpable abnormality. Impression dictated by: Devon Wolfe M.D.03/10/2021 9:37 AM Dictation Location: [place] [address] Transcribed By: [facility] 03/10/2137 Dictated By: Devon Wolfe DO 03/10/2132 Signed By: 03/10/21 0937 [facility] XR wrist RT 2Von 11-14-2020 XR wrist RT 2V [facility] [place] [address] XRay Report Signed Patient: David Joyce MR#: [id number] : 1995 Acct:[id number] Age/Sex: 25 / F ADM Date: 11/14/20 Loc[place] [facility] [place]: Type: [facility] Attending Dr: Maury Gutiérrez DO Ordering Provider: Maury Gutiérrez DO Date of Service: 11/14/20 XR/XR wrist RT 2V: [id number] Copies to: Maury Gutiérrez DO XR wrist RT 2V 11/14/2020 8:00 AM SIGNS AND SYMPTOMS: Right wrist pain for 3 weeks with lump near the ulnar styloid PROTOCOL: Frontal and lateral radiographs of the right wrist COMPARISON: None FINDINGS: The radiocarpal joint space is preserved. There is no fracture or dislocation. There is sclerosis of the triquetrum which is of uncertain etiology. This may represent a healed or healing fracture. There is no significant soft tissue swelling. The carpal bones are otherwise preserved. XR/XR wrist RT 2V IMPRESSION: No evidence of acute displaced fracture. No dislocation or significant soft tissue swelling. There is sclerosis of the triquetrum which is of uncertain etiology. This may represent a healed or healing fracture. Correlation with history of previous trauma is recommended. Impression dictated by: Trey Moran M.D.11/14/2020 9:45 AM Dictation Location: [place] [address] Transcribed By: JANES 11/14/2045 Dictated By: Tery Moran II, MD 11/14/2041 Signed By: 11/14/2045 [facility] Vital Signs Date Time Vital Sign Value Performing Clinician Facility 03-22-2024 21:25-0400 Diastolic blood pressure 84 mm[Hg] Kaylinn Dokken [facility] 03-22-2024 21:25-0400 Heart rate 92 /min Kaylinn Dokken [facility] 03-22-2024 21:25-0400 Respiratory rate 16 /min Kaylinn Dokken [facility] 03-22-2024 21:25-0400 SaO2% (BldA) [Mass fraction] 100 % Kaylinn Dokken [facility] 03-22-2024 21:25-0400 Systolic blood pressure 121 mm[Hg] Kaylinn Dokken [facility] 03-22-2024 20:22-0400 Body temperature 98.78 [degF] Kaylinn Dokken [facility] 03-22-2024 20:22-0400 Diastolic blood pressure 90 mm[Hg] Kaylinn Dokken [facility] 03-22-2024 20:22-0400 Heart rate 95 /min Kaylinn Dokken [facility] 03-22-2024 20:22-0400 Respiratory rate 16 /min Kaylinn Dokken [facility] 03-22-2024 20:22-0400 SaO2% (BldA) [Mass fraction] 100 % Lex Davis [facility] 03-22-2024 20:22-0400 Systolic blood pressure 149 mm[Hg] Lex Davis [facility] 03-26-2023 00:06-0400 Body temperature 98.06 [degF] [facility] 03-26-2023 00:06-0400 Diastolic blood pressure 82 mm[Hg] [facility] 03-26-2023 00:06-0400 Heart rate 81 /min [facility] 03-26-2023 00:06-0400 Respiratory rate 16 /min [facility] 03-26-2023 00:06-0400 SaO2% (BldA) [Mass fraction] 98 % [facility] 03-26-2023 00:06-0400 Systolic blood pressure 134 mm[Hg] [facility] 06-01-2022 22:04-0400 Body height 162.56 cm DO Samuel Mast Work Phone: [facility] 06-01-2022 22:04-0400 Body temperature 98.7 [degF] DO Samuel Mast Work Phone: [facility] 06-01-2022 22:04-0400 Body weight 65.35 kg DO Samuel Mast Work Phone: [facility] 06-01-2022 22:04-0400 Diastolic blood pressure 96 mm[Hg] DO Samuel Mast Work Phone: [facility] 06-01-2022 22:04-0400 Heart rate 104 /min DO Samuel Mast Work Phone: [facility] 06-01-2022 22:04-0400 Respiratory rate 18 /min DO Samuel Mast Work Phone: [facility] 06-01-2022 22:04-0400 SaO2% (BldA) [Mass fraction] 100 % DO Samuel Mast Work Phone: [facility] 06-01-2022 22:04-0400 Systolic blood pressure 139 mm[Hg] DO Samuel Mast Work Phone: [facility] 03-28-2021 11:00-0400 Diastolic blood pressure 84 mm[Hg] Samuel Mast Work Phone: [facility] 03-28-2021 11:00-0400 Heart rate 84 /min Samuel Mast Work Phone: [facility] 03-28-2021 11:00-0400 Respiratory rate 16 /min Samuel Mast Work Phone: [facility] 03-28-2021 11:00-0400 SaO2% (BldA) [Mass fraction] 99 % Samuel Mast Work Phone: [facility] 03-28-2021 11:00-0400 Systolic blood pressure 124 mm[Hg] Samuel Mast Work Phone: [facility] 03-28-2021 08:33-0400 Body height 162.56 cm Samuel Mast Work Phone: [facility] 03-28-2021 08:33-0400 Body mass index (BMI) [Ratio] 24.9 kg/m2 Samuel Mast Work Phone: [facility] 03-28-2021 08:33-0400 Body weight 65.77 kg Samuel Mast Work Phone: [facility] 03-28-2021 07:24-0400 Body temperature 98.2 [degF] Samuel Mast Work Phone: [facility] Encounters Encounter Date Encounter Type Care Provider Facility Start: 03-22-2024 End: 03-22-2024 Emergency department patient visit Lex Davis Facility:[facility] [place] [facility] Start: 03-26-2023 End: 03-26-2023 Emergency department patient visit Mo Farias [facility] Start: 06-11-2022 End: 06-11-[address] NONE LISTED REQUEST Facility: Start: 06-01-2022 End: 06-01-2022 Emergency department patient visit DO Samuel Mast Work Phone: [facility] Start: 05-29-2022 End: 05-29-[address] NONE LISTED REQUEST Facility: Start: 06-19-2021 End: 06-19-[address] NONE LISTED REQUEST Facility: Start: 03-28-2021 End: 03-28-2021 Admission to same day surgery center Samuel Mast Work Phone: -Surgery Center [facility] Start: 03-24-2021 End: 03-24-2021 Patient encounter procedure Samuel Mast Work Phone: -Pre-Surgical Testing Start: 03-09-2021 End: 03-09-2021 Patient encounter procedure Samuel Mast Work Phone: -MRI [facility] Start: 11-14-2020 End: 11-14-2020 Patient encounter procedure Samuel Mast -XRay [facility] Procedures Date Procedure Procedure Detail Performing Clinician Start: 03-28-2021 Open reduction of fracture with internal fixation Samuel Mast Work Phone: Start: 03-09-2021 MRI of right wrist Samuel Mast Work Phone: Start: 11-14-2020 X-ray of right wrist , two views Samuel Mast None (qualifier value) Ar Farias Plan of Treatment Date Care Activity Detail Author Start: 03-09-2021 MRI of right wrist MR wrist RT wo co n [facility] Patient referral [facility] Payers Date Payer Category Payer Medicaid [id number] 1995 Unknown [id number] [id number] [id number] 1995 Unknown [id number] 2.16.84 [id number] 1995 Unknown [id number] 2.16.84 [id number] 1995 Unknown [id number] 2.16.8 [id number] 1995 Unknown [id number] 2.16.8 [id number] 1995 Unknown [id number] 2.16.8 [id number] 1959 Unknown [id number] 1959 Unknown [id number] Self-pay Self Pay [id number] Unknown [id number] Unknown [employer] [id number] Social History Date Type Detail Facility Start: 11-24-2018 End: 03-28-2021 Tobacco smoking status NHIS Smoker (finding) [facility] Start: 1995 Sex Assigned At Female F [facility] Start: 06-01-2022 Tobacco smoking stat [facility] Never smoked tobacco (finding) [facility] Start: 03-26-2023 Tobacco smoking status Light t obacco smoker (finding) [facility] Sex Assigned At Female [facility] Goals Date Patient Goal Desired Activity /State Functional Status Date Assessment Result Facility 03-22-2024 Functional Status N/A [facility] 03-26-2023 Functional Status N/A [facility] Hospital Discharge instructions 03-22-2024 Note Date & Type Note Facility 03-22-2024 Hospital Discharg e instructions Patient Education 03/22/2024 21:26:04 Safe Sex Safe Sex Practicing safe sex means taking steps before and during sex to reduce your risk of: Getting an STI (sexually transmitted infection). Giving your partner an STI. Unwanted or unplanned . How to practice safe sex Ways you can practice safe sex Limit your sexual partners to only one partner who is having sex with only you. Avoid using alcohol and drugs before having sex. Alcohol and drugs can affect your judgment. Before having sex with a new partner: ?Talk to your partner about past partners, past STIs, and drug use. ?Get screened for STIs and discuss the results with your partner. Ask your partner to get screened too. Check your body regularly for sores, blisters, rashes, or unusual discharge. If you notice any of these problems, visit your health care provider. Avoid sexual contact if you have symptoms of an infection or you are being treated for an STI. While having sex, use a condom. Make sure to: ?Use a condom every time you have vaginal, oral, or anal sex. Both females and males should wear condoms during oral sex. ?Keep condoms in place from the beginning to the end of sexual activity. ?Use a latex condom, if possible. Latex condoms offer the best protection. ?Use only water-based lubricants with a condom. Using petroleum-based lubricants or oils will weaken the condom and increase the chance that it will break. Ways your health care provider can help you practice safe sex See your health care provider for regular screenings, exams, and tests for STIs. Talk with your health care provider about what kind of control (contraception) is best for you. Get vaccinated against hepatitis B and human papillomavirus (HPV). If you are at risk of being infected with HIV (human immunodeficiency virus), talk with your health care provider about taking a prescription medicine to prevent HIV infection. You are at risk for HIV if you: ?Are a man who has sex with other men. ?Are sexually active with more than one partner. ?Take drugs by injection. ?Have a sex partner who has HIV. ?Have unprotected sex. ?Have sex with someone who has sex with both men and women. ?Have had an STI. Follow these instructions at home: Take epdx-dvy-vroveuu and prescription medicines only as told by your health care provider. Keep all follow-up visits. This is important. Where to find more information Centers for Disease Control and Prevention: www.cdc.gov Planned Parenthood: www.plannedparenthood.org Office on Women's Health: www.womenshealth.gov Summary Practicing safe sex means taking steps before and during sex to reduce your risk getting an STI, giving your partner an STI, and having an unwanted or unplanned . Before having sex with a new partner, talk to your partner about past partners, past STIs, and drug use. Use a condom every time you have vaginal, oral, or anal sex. Both females and males should wear condoms during oral sex. Check your body regularly for sores, blisters, rashes, or unusual discharge. If you notice any of these problems, visit your health care provider. See your health care provider for regular screenings, exams, and tests for STIs. This information is not intended to replace advice given to you by your health care provider. Make sure you discuss any questions you have with your health care provider. Document Revised: 02/27/2021 Document Reviewed: 02/27/2021 [employer] Patient Education 2022 [employer]. 03/22/2024 21:26:04 Dysuria Dysuria Dysuria is pain or discomfort during urination. The pain or discomfort may be felt in the part of the body that drains urine from the bladder (urethra) or in the surrounding tissue of the genitals. The pain may also be felt in the groin area, lower abdomen, or lower back. You may have to urinate frequently or have the sudden feeling that you have to urinate (urgency). Dysuria can affect anyone, but it is more common in females. Dysuria can be caused by many different things, including: Urinary tract infection. Kidney stones or bladder stones. Certain STIs (sexually transmitted infections), such as chlamydia. Dehydration. Inflammation of the tissues of the vagina. Use of certain medicines. Use of certain soaps or scented products that cause irritation. Follow these instructions at home: Medicines Take egnc-hcv-dtmcbyd and prescription medicines only as told by your health care provider. If you were prescribed an antibiotic medicine, take it as told by your health care provider. Do not stop taking the antibiotic even if you start to feel better. Eating and drinking Drink enough fluid to keep your urine pale yellow. Avoid caffeinated beverages, tea, and alcohol. These beverages can irritate the bladder and make dysuria worse. In males, alcohol may irritate the prostate. General instructions Watch your condition for any changes. Urinate often. Avoid holding urine for long periods of time. If you are female, you should wipe from front to back after urinating or having a bowel movement. Use each piece of toilet paper only once. Empty your bladder after sex. Keep all follow-up visits. This is important. If you had any tests done to find the cause of dysuria, it is up to you to get your test results. Ask your health care provider, or the department that is doing the test, when your results will be ready. Contact a health care provider if: You have a fever. You develop pain in your back or sides. You have nausea or vomiting. You have blood in your urine. You are not urinating as often as you usually do. Get help right away if: Your pain is severe and not relieved with medicines. You cannot eat or drink without vomiting. You are confused. You have a rapid heartbeat while resting. You have shaking or chills. You feel extremely weak. Summary Dysuria is pain or discomfort while urinating. Many different conditions can lead to dysuria. If you have dysuria, you may have to urinate frequently or have the sudden feeling that you have to urinate (urgency). Watch your condition for any changes. Keep all follow-up visits. Make sure that you urinate often and drink enough fluid to keep your urine pale yellow. This information is not intended to replace advice given to you by your health care provider. Make sure you discuss any questions you have with your health care provider. Document Revised: 05/05/2021 Document Reviewed: 05/05/2021 [employer] Patient Education 2022 [employer]. Follow Up Care 03/22/2024 20:18:54 With:Kathia VARGAS Address: [address] [place] [address], [address] [address] [facility] (1) When:03/25/2024 21:17:27 Comments:Call for diagnosis based follow up [facility] Evaluation + Plan note 03-22-2024 Note Date & Type Note Facility 03-22-2024 Evaluation + Plan note Extrac hal from: Title:ED Note Author:Jung GARCIA, [place] te:6/16/24 Dysuria (R30.0: Dysuria) STD exposure (Z20.2: Contact with and (suspected) exposure to infections with a predominantly sexual mode of transmission) Orders: ceftriaxone, 500 mg = 1 EA, Injection, IntraMuscular, Once, Stop date 03/22/24 20:48:00 EDT, STAT, Start date 03/22/24 20:48:00 EDT, 03/22/24 20:48:00 EDT doxycycline, 100 mg = 1 cap(s), Oral, BID, X 7 day(s), # 14 cap(s), Refills(s) 0, Pharmacy: [facility]/pharmacy #[id number], 162.5, cm, 03/22/24 20:24:00 EDT, Height/Length Dosing, 60.2, kg, 03/22/24 20:24:00 EDT, Weight Dosing doxycycline, 100 mg = 1 cap(s), Cap, Oral, Once, Stop date 03/22/24 20:48:00 EDT, STAT, Start date 03/22/24 20:48:00 EDT, 03/22/24 20:48:00 EDT Chlamydia/Gonococcus, GILBERTO U Beta Hcg Qual UA with Cult Rflx Urine Culture Diagnostic Tests Pending * Chlamydia/Gonococcus, GILBERTO 03/22/24 * Urine Culture 03/22/24 [facility] Evaluation + Plan note 03-26-2023 Note Date & Type Note Facility 03-26-2023 Evaluation + Plan note Extrac hal from: Title:ED Note Author:Mo Farias M.D. te:03/26/23 1. STD (sexually transmitted disease) (A64: Unspecified sexually transmitted disease) Orders: ceftriaxone, 500 mg = 1 EA, Injection, IntraMuscular, Once, Stop date 03/26/23 0:36:00 EDT, STAT, Start date 03/26/23 0:36:00 EDT, 03/26/23 0:36:00 EDT doxycycline, 100 mg = 1 cap(s), Oral, BID, # 14 cap(s), Refills(s) 0, Pharmacy: [facility]/pharmacy #[id number], 162, cm, 03/26/23 0:10:00 EDT, Height/Length Dosing, 68.3, kg, 03/26/23 0:10:00 EDT, Weight Dosing [facility] Discharge instructions 03-26-2023 Note Date & Type Note Facility 03-26-2023 Hospital Discharg e instructions Patient Education 03/26/2023 01:26:03 Gonorrhea Gonorrhea Gonorrhea is a sexually transmitted infection (STI) that can infect any person. If left untreated, this infection can: Damage the reproductive organs. Spread to other parts of the body. Cause someone to be unable to have children (infertility). Harm an unborn baby if an infected person is . It is important to get treatment for gonorrhea as soon as possible. All of your sex partners may also need to be treated for the infection. What are the causes? This condition is caused by bacteria called Neisseria gonorrhoeae. The infection is spread from person to person through sexual contact, including oral, anal, and vaginal sex. The infection can also pass from a person to the baby during . What increases the risk? The following factors may make you more likely to develop this condition: Being a woman younger than 25 years and sexually active. Being a man who has sex with men. Having a new sex partner or having multiple partners. Having a sex partner who has an STI. Not using condoms correctly or not using condoms every time you have sex. Having a history of STIs. What are the signs or symptoms? When symptoms occur, they may include: Abnormal discharge from the penis or vagina. The discharge may be cloudy, thick, or yellow-green in color. Pain or burning when you urinate. Itching, irritation, pain, bleeding, or discharge from the rectum. This may occur if the infection was spread by anal sex. Sore throat or swollen lymph nodes in the neck. This may occur if the infection was spread by oral sex. Pain or swelling in the testicles. Bleeding between menstrual periods. If the infection has spread to other areas of the body, symptoms may include: Fever. Eye irritation. Swelling, redness, warmth, and pain in the joints. Rashes. In some cases, there are no symptoms. How is this diagnosed? This condition is diagnosed based on: A physical exam. A swab of fluid. The swab of fluid may be taken from the penis, vagina, throat, or rectum. Urine tests. Not all test results will be available during your visit. How is this treated? This condition is treated with antibiotic medicines. It is important to start treatment as soon as possible. Early treatment may prevent some problems from developing. You should not have sex during treatment. All types of sexual activity should be avoided for at least 7 days after treatment is complete and until your sex partner or partners have been treated. Follow these instructions at home: Take rvku-buj-yzlryrs and prescription medicines as told by your health care provider. Finish all antibiotic medicine even when you start to feel better. Do not have sex during treatment. Do not have sex until at least 7 days after you and your partner or partners have finished treatment and your health care provider says it is okay. It is up to you to get your test results. Ask your health care provider, or the department that is doing the test, when your results will be ready. If you get a positive result on your gonorrhea test, tell your recent sex partners. These include any partners for oral, anal, or vaginal sex. They need to be checked for gonorrhea even if they do not have symptoms. They may need treatment, even if they get negative results on their gonorrhea tests. Keep all follow-up visits. This is important. How is this prevented? Use latex or polyurethane condoms correctly every time you have sex. Ask if your sex partner or partners have been tested for STIs and had negative results. Avoid having multiple sex partners. Get regular health screenings to check for STIs. Contact a health care provider if: Your symptoms do not get better after a few days of taking antibiotics. Your symptoms get worse. You cannot take your medicine as directed by your health care provider. You develop new symptoms, including: ?Eye irritation. ?Swelling, redness, warmth, and pain in the joints. ?Rashes. You have a fever. Summary Gonorrhea is a sexually transmitted infection (STI) that can infect any person. This infection is spread from person to person through sexual contact, including oral, anal, and vaginal sex. The infection can also pass from a person to the baby during . Symptoms include abnormal discharge, pain or burning while urinating, or pain in the rectum. This condition is treated with antibiotic medicines. Do not have sex until at least 7 days after both you and any sex partners have completed antibiotic treatment. Tell your health care provider if you have trouble taking your medicine, your symptoms get worse, or you have new symptoms. Keep all follow-up visits. This information is not intended to replace advice given to you by your health care provider. Make sure you discuss any questions you have with your health care provider. Document Revised: 08/16/2022 Document Reviewed: 08/16/2022 [employer] Patient Education 2022 [employer]. Follow Up Care 03/26/2023 00:04:22 With:Kathia VARGAS Address: [address] [place] [address], [place] [phone] Business (1) When:03/29/2023 Comments:Return to the emergency room if you develop any symptoms. [facility] Evaluation note Note Date & Type Note Facility Evaluation note No assessment information availa [facility] Hospital course Narrative Note Date & Type Note Facility Hospital course Narrative No data available for this section [facility] Progress note Note Date & Type Note Facility Progress note No data available for this section [facility] Advance Directives No Advanced Directives Records Found Advance Directive Response Recorded Date/ Time Advance Directives No June 3:45am Advance Directive Response Recorded Date/ Time Advance Directives No June 4:45am Chief Complaint and Reason for Visit Chief Complaint M25.531 Chief Complaint M67.431 Chief Complaint M67.431 Wrist Pain Chief Complaint M67.431 Wrist Pain Wrist Pain Chief Complaint vomiting, 8 weeks pr eg. Assessments No Assessments Information Available Family History No Family History Records Found Relationship Condition Age at Onset Recorded Date/T mello grandparent Chronic obstructive pulmonary disease Unk nown Summary Purpose Additional Source Comments Goals (unrecognized section and content) Goals may be documented in a n alternate sectionGoals may be documented in an alternate sectionGoals may be documented in an alternate sectionGoals may be documented in an alternate section No data available for this section No data available for this section INFORMATION SOURCE (unrecogn ized section and content) DATE CREATED AUTHOR 06/15/2021 [facility] DATE CREATED AUTHOR AUTHOR'S ORGANIZ ATION 06/12/2022 [facility] DATE CREATED AUTHOR AUTHOR'S ORGANIZ ATION 03/22/2024 [facility] DATE CREATED AUTHOR AUTHOR'S ORGANIZ ATION 03/23/2024 [facility] Care Teams (unrecognized sec tion and content) Team Status: Inactive Member Role Status Dates Samuel Mast , DO Primary Care Provider Active Jemal Gregory DO Emergency Provider Active Team Status: Active Member Role Status Dates Samuel Mast , DO Primary Care Provider Active FOR RECORDS PERTAINING TO PATIENTS WHO ARE OR HAVE BEEN ENROLLED IN A CHEMICAL DEPENDENCY/SUBSTANCEABUSE PROGRAM, SOME INFORMATION MAY BE OMITTED. This clinical summary was aggregated from multiple sources. Caution should be exercised in using it in the provision of clinical care. This summary normalizes information from multiple sources, and as a consequence, information in this document may materially change the coding, format and clinical context of patient data. In addition, data may be omitted in some cases. CLINICAL DECISIONS SHOULD BE BASED ON THE PRIMARY CLINICAL RECORDS. [facility] provides no warranty or guarantee of the accuracy or completeness of information in this document.
--- NOTE | 2024-03-25 01:13 | ED.FEMALEGU1 ---
HPI - Female Genitourinary General Chief complaint: Urogenital-Female Stated complaint: uti Time Seen by Provider: 03/25/24 01:08 Source: patient Mode of arrival: walk-in History of Present Illness HPI Narrative: presents complaining of vaginal discharge, dysuria and feels she has swelling of her genitals. Was seen at [facility] and Given dose of Rocephin and prescribed Doxycycline. no change in her symptoms in a couple of days. Now presents here. No abdominal pain. No fever or hematuria Related Data Home Medications ?Medication ?Instructions ?Recorded ?Confirmed doxycycline hyclate 100 mg capsule mg 03/25/24 Allergies Allergy/AdvReac Type Severity Reaction Status Date / Time No Known Drug Allergies Allergy Verified 03/25/24 00:38 Review of Systems ROS Status of ROS 10 or more systems reviewed and unremarkable except as noted in history and below [facility] Social History Smoking status: Current some day smoker Exam Constitutional Vital Signs, click to edit/add: Last Vital Signs Temp 98.3 F 03/25/24 00:35 Pulse 94 H 03/25/24 00:35 Resp 16 03/25/24 00:35 BP 127/83 03/25/24 00:35 Pulse Ox 99 03/25/24 00:35 O2 Del Method Room Air 03/25/24 00:35 Common normals: no apparent distress, average body habitus, oriented x3, no limitations, healthy appearing, alert and well nourished [facility] Common normals: normocephalic and head/scalp atraumatic Eye Common normals: EOMs intact bilaterally and conjunctivae normal Respiratory Common normals: normal respiratory effort, no retractions, no use of accessory muscles and clear to auscultation bilaterally Cardio Common normals: regular rate, regular rhythm, S1 normal heart sound and S2 normal heart sound GI Common normals: Normal to inspection, nondistended, normoactive bowel sounds present, soft to palpation and non-tender Other: patient has multiple minute blisters and sores on the external genitalia and at the entry of the vaginal vault speculum exam not performed due to pain Back & Pelvis Common normals: no CVA tenderness Extremity Common normals: normal to inspection and full ROM Neuro Common normals: oriented x3, CN's II-XII intact bilaterally and moves all extremities Psych Appearance: grossly normal Course Vital Signs Vital signs: Vital Signs Temperature 98.3 F 03/25/24 00:35 Pulse Rate 94 H 03/25/24 00:35 Respiratory Rate 16 03/25/24 00:35 Blood Pressure 127/83 03/25/24 00:35 Pulse Oximetry 99 03/25/24 00:35 Oxygen Delivery Method Room Air 03/25/24 00:35 Temperature 98.3 F 03/25/24 00:35 Pulse Rate 94 H 03/25/24 00:35 Respiratory Rate 16 03/25/24 00:35 Blood Pressure 127/83 03/25/24 00:35 Pulse Oximetry 99 03/25/24 00:35 Oxygen Delivery Method Room Air 03/25/24 00:35 MDM - Female Genitourinary MDM Narrative Medical decision making narrative: patient presents complaining of vaginal discharged and dysuria. Was Seen at [facility] and treated with Rocephin and doxycycline. Pelvic exam was not performed. Genital exam tonight with multiple sore and blisters have the appearance of herpes. Speculum exam not completed due to pain. Wet prep sample was obtained and neg for BV. urine for GC and chlamydia ordered as well as testing for HSV. patient advised of the findings. Advised to continue Doxycycline and prescribed Valtrex Lab Data Labs: Lab Results 03/25/24 Range/Units 00:40 Urine Color Yellow (YELLOW) Urine Clarity Clear (CLEAR) Urine pH 6.0 (5.0-9.0) Ur Specific [place] >=1.030 A (1.005-1.025) Urine Protein Trace (NEG/TRACE) mg/dL Urine Glucose (UA) Negative (NEGATIVE) mg/dL Urine Ketones Negative (NEGATIVE) mg/dL Urine Occult Blood Small A (NEGATIVE) Urine Nitrite Negative (NEGATIVE) Urine Bilirubin Negative (NEGATIVE) Urine Urobilinogen 0.2 (0.2-1.0) EU/dL Ur Leukocyte Esterase Trace A (NEGATIVE) Urine RBC 2-5 A (0-2) #/HPF Urine WBC 20-50 A (NONE SEEN) #/HPF Ur Squamous Epith Cells Moderate A (NONE/RARE) #/LPF Urine Crystals None seen (None Seen) #/HPF Urine Bacteria None seen (NONE SEEN) #/HPF Urine Casts None seen (NONE SEEN) #/LPF Urine Mucus Moderate A (NONE SEEN) Ur Culture Indicated? Yes Discharge Plan Discharge Stand Alone Forms: Portal Instructions Chief Complaint: Urogenital-Female Clinical Impression: Genital herpes Patient Disposition: Home, Self-Care Prescriptions / Home Meds: No Action doxycycline hyclate 100 mg capsule Print Language: [place] Instructions: Genital Herpes Infection (ED) Additional Instructions: follow up with your doctor next week. Continue doxycycline Referrals: Physician,Non-Staff, MD [Primary Care Provider] - 1 week
[2024-03-25 01:25] LABS: Bilirubin Urine NEGATIVE (NEGATIVE); Blood Urine SMALL (NEGATIVE); Clarity Urine CLEAR (CLEAR); Color Urine YELLOW (YELLOW); Glucose Urine UA NEGATIVE (NEGATIVE); Ketones Urine NEGATIVE (NEGATIVE); Leukocyte Esterase Urine TRACE (NEGATIVE); Nitrite Urine NEGATIVE (NEGATIVE); Protein Urine TRACE mg/dL (NEG/TRACE); Specific Gravity Urine >=1.030 (1.005-1.025); Urobilinogen Urine 0.2 EU/dL (0.2-1.0)
[2024-03-25 01:34] LABS: Urine Microscopic Indicated YES
[2024-03-25 01:40] LABS: Bacteria Urine NONE SEEN #/HPF (NONE SEEN); Cast Seen? NONE SEEN #/LPF (NONE SEEN); Crystals Seen? None Seen #/HPF (None Seen); Mucus Urine MODERATE (NONE SEEN); Squamous Epithelial Cell Urine MODERATE #/LPF (NONE/RARE); WBC Urine 20-50 #/HPF (NONE SEEN)
[2024-03-25 01:41] LABS: Urine Culture Indicated YES
[2024-03-25] MEDS: VALACYCLOVIR HCL 500 MG TABLET PO (02:44)
[2024-03-26 11:13] LABS: HSV 1 IgG, Type Spec <0.91 index (0.00-0.90); HSV 2 IgG, Type Spec <0.91 index (0.00-0.90)
== END 2024-03-25 02:58 | disposition home or self-care (01) ==
PROVIDERS: Emergency Provider Internal Medicine
DX: B00.9 Herpesviral infection, unspecified (principal); F17.200 Nicotine dependence, unspecified, uncomplicated
CPT/HCPCS: 36415; 81001; 86695; 86696; 87086; 87210; 87491; 87591; 99283

== ENCOUNTER 2025-01-24 12:04 | Emergency (ER) | payer SELFPAY ==
[2025-01-24 12:08] VITALS: BP 170/89; PULSE 100; TEMP 37; O2SAT 98; BMI 25.6
--- OUTSIDE RECORDS SUMMARY | 2025-01-24 12:09 | XMS_ITS | CCD ---
Author Organization [facility] Care Team Providers Care Manager Utilities Name Role Phone Cr Samuel Primary Care Provider Maury Gutiérrez Attending Provider Cr DO Baker Primary Care Provider DO Jemal Gregory Emergency Provider REQUEST, NONE LISTED Primary Care UnavailJAH Lockhart Admitting Unavailable JAH HOGUE Attending Unavailable NAMRATA MARIN Consulting Unavailable MADDI SRINIVASAN Consulting Unavailable REQUEST, NONE LISTED Primary Care Unavaila JAH Crocker Admitting Unavailable JAH HOGUE Attending Unavailable IGNACIO, DR SAMEER Sherman Consulting Unavailable JAH HOGUE Consulting Unavailable REQUEST, NONE LISTED Primary Care Unavaila vicki GARCIA, DR BELEM Bae Admitting Unavailedmond GARCIA, DR BELEM Bae Attending Unavailedmond e RADHA, DR BELEM Bae Consulting Unavailedmond NORRIS, DR DEYA Monaco Consulting Unavailable Kathia BRANDON Primary Care Physician Lex Davis Attending Unavailable Mo Farias Attending Unavailable DO Lex Davis Attending Unavailable DO Aman Brandon Primary Care Provider MD Shelton Colby Attending Provider [phone] SHELTON COLBY Attending Unavailable SHELTON COLBY Referring Unavailable Shelton Colby Attending Unavailable Shelton Colby Admitting Unavailable Aman Brandon Primary Care Unavailable Unavailable Unavailable Unavailable Allergies Allergy Classification Reported Allergen(s) Allergy Type Date of Onset Reaction(s) Facility (1 source) No Known Medication Allergies; Translations: [No Known Medication Allergies] Propensity to adverse reactions (disorder) [facility] Repository Medications Current Medications Medication Drug Class(es) Dates Sig (Normalized) Sig (Original) doxycycline hyclate 100 mg oral capsule (3 sources) Tetracycline-class Drug Start: 03-26-2023 End: 03-29-2024 take 1 capsule by mouth twice daily doxycycline hyclate 100 mg Cap 100 mg = 1 cap(s), Oral, BID, X 7 day(s), # 14 cap(s), Refills(s) 0, Pharmacy: [facility]/pharmacy #[id number], 162.5, cm, 03/22/24 20:24:00 EDT, Height/Length Dosing, 60.2, kg, 03/22/24 20:24:00 EDT, Weight Dosing Start Date: 03/22/24 Stop Date: 03/29/24 Status: Ordered hydrOXYzine pamoate 25 mg oral capsule (7 sources) Antihistamine Start: 12-01-2018 take 1-2 tablets by mouth three times daily as needed Vistaril 25 mg Cap 1-2 tabs, Oral, TID, PRN for itching, # 20 tab(s), Refills(s) 0, [id number] Start Date: 12/01/18 Status: Ordered Start: 11-24-2018 End: 03-28-2021 take 25 mg by mouth four times daily Hydroxyzine Hcl Discontinued 25 MG PO Four times daily 20 November 24, 2018 1:00am March 28, 2021 7:29am [place] (No Known Home Meds) (2 sources) Start: 03-28-2021 [place] (No Kn own Home Meds) Active March 28, 2021 12:00am Completed/Discontinued Medications Medication Drug Class(es) Dates Sig (Normalized) Sig (Original) acetaminophen 325 mg / HYDROcodone bitartrate 5 mg oral tablet (10 sources) Opioid Agonist Start: 09-14-2018 End: 11-24-2018 take 1 tablet by mouth every four to six hours Hydrocodone-Acetami nophen (Astor) 5-325 mg tablet Discontinued 1 TAB PO EVERY 4-6 HOURS 12 3 September 14, 2018 November 24, 2018 1:14pm Start: 09-12-2018 End: 11-24-2018 take 1 tablet by mouth every six hours Hydrocodone-Acetaminophen Discontinued 1 TAB PO Every 6 hours September 12, 2018 1:00am November 24, 2018 1:14pm acetaminophen 325 mg / oxyCODONE hydrochloride 5 mg oral tablet (5 sources) Opioid Agonist Start: 04-23-2018 End: 09-12-2018 take 1 tablet by mouth every four to six hours Oxycodone-Acetaminophen (Percocet) 5-325 mg tablet Discontinued 1 TAB PO EVERY 4-6 HOURS April 23, 2018 September 12, 2018 4:17pm cephalexin 500 mg oral capsule (10 sources) Cephalosporin Antibacterial Start: 10-07-2017 End: 10-14-2017 take 1 capsule by mouth twice daily Cephalexin (Keflex) 500 mg capsule Discontinued 500 MG PO Twice daily 19 04October 07, 2017 1:00am October 14, 2017 1:09am Start: 08-26-2017 End: 10-04-2017 take 1 g by mouth twice daily Cephalexin (Keflex) 500 mg capsule Discontinued 1 GM PO Twice daily 03 05August 26, 2017 1:00am October 04, 2017 1:50pm chlorhexidine gluconate 1.2 mg/ml mouthwash (5 sources) Start: 09-14-2018 End: 11-24-2018 take 1 mL by mouth twice daily Chlorhexidine Gluconate (Peridex) 0.12 % mouthwash Discontinued 15 ML MUCOUS MEM Twice daily September 14, 2018 1:00am November 24, 2018 1:14pm rinse mouth for at least 30 secs clotrimazole 20 mg/ml vaginal cream (10 sources) Azole Antifungal Start: 03-02-2018 End: 03-04-2018 Clotrimazole (Clotrimazole-3) 2 % cream Discontinued 1 APPLICATOR VAGINAL Daily at bedtime March 02, 2018 12:00am March 04, 2018 3:02pm ibuprofen 800 mg oral tablet (10 sources) Nonsteroidal Anti-inflammatory Drug Start: 09-14-2018 End: 11-24-2018 take 800 mg by mouth every six hours Ibuprofen Discontinued 800 MG PO Q6H September 14, 2018 1:00am November 24, 2018 1:14pm Start: 03-04-2018 End: 09-12-2018 Ibuprofen Discontinued 600 M G PO Every 6 hours March 04, 2018 12:00am September 12, 2018 4:17pm do not exceed 4 doses in a 24 hour period metoclopramide 10 mg oral tablet (10 sources) Dopamine-2 Receptor Antagonist Start: 12-13-2017 End: 12-13-2017 Metoclopramide Hcl Discontinued TABLET December 13, 2017 1:00am December 13, 2017 6:39am Start: 09-05-2017 End: 10-04-2017 take 10 mg by mouth every six hours Metoclopramide Hcl Discontinued 10 MG PO Every 6 hours 50 September 05, 2017 1:00am October 04, 2017 1:50pm naproxen 500 mg oral tablet (5 sources) Nonsteroidal Anti-inflammatory Drug Start: 04-23-2018 End: 09-12-2018 take 1 tablet by mouth every twelve hours Naproxen (Naprosyn) 500 mg tablet Discontinued 500 MG PO Q12H April 23, 2018 12:00am September 12, 2018 4:17pm ondansetron 4 mg disintegrating oral tablet (10 sources) Serotonin-3 Receptor Antagonist Start: 08-26-2017 End: 09-05-2017 take 1 tablet by mouth every eight hours Ondansetron (Zofran Odt) 4 mg tablet,disintegra ting Discontinued 4 MG PO Q8H August 26, 2017 1:00am September 05, 2017 10:14am Start: 06-09-2017 End: 07-12-2017 take 1 tablet by mouth every eight hours Ondansetron (Zofran Odt) 4 mg tablet,disintegrating Discontinued 4 MG PO Q8H June 09, 2017 12:00am July 12, 2017 1:58pm penicillin v potassium 500 mg oral tablet (5 sources) Start: 09-12-2018 End: 11-24-2018 take 500 mg by mouth every six hours Penicillin V Potassium Discontinued 500 MG PO Every 6 hours September 12, 2018 1:00am November 24, 2018 1:14pm permethrin 50 mg/ml topical cream (5 sources) Pyrethroid Start: 11-24-2018 End: 03-28-2021 Permethrin Discontinued 1 APPLIC TOPICAL Once 60 November 24, 2018 1:00am March 28, 2021 7:29am leave on for 8 to14 hrs before washing off potassium chloride 20 meq extended release oral tablet (5 sources) Start: 06-10-2017 End: 07-12-2017 take 40 mEq by mouth once daily Potassium Chloride Discontinued 40 MEQ PO Daily June 10, 2017 12:00am July 12, 2017 1:58pm predniSONE 20 mg oral tablet (5 sources) Start: 11-24-2018 End: 03-28-2021 take 60 mg by mouth once daily Prednisone Discontinued 60 MG PO Daily November 24, 2018 1:00am March 28, 2021 7:29am Prenat.Vits,Ab,Min- Iron-Folic (5 sources) Start: 07-21-2017 End: 10-14-2017 take 1 tablet by mouth once daily Prenat.Vits,Ab,Min-I celine-Folic Discontinued 1 TAB PO Daily July 21, 2017 7:26am October 14, 2017 1:09am Start: 07-21-2017 End: 10-14-2017 take 1 tablet by mouth once daily Prenat.Vits,Ab,Ksi-Qrpu-Trgft Discontin ued 1 TAB PO Daily July 21, 2017 6:26am October 14, 2017 12:09am Start: 07-21-2017 End: 10-14-2017 take 1 tablet by mouth once daily Prenat.Vits,Ab,Gks-Qpdq-Ofljq Discontin ued 1 TAB PO Daily July 21, 2017 12:00am October 14, 2017 1:09am Paewacha79-Pmub Phk-Xj-Wa9-Dha (5 sources) Start: 12-13-2017 End: 04-23-2018 take 1 tablet by mouth once daily Whrxjzpj24-Ijdv Mye-He-Hw0-Dha Discontinued 1 TAB PO Daily December 13, 2017 6:39am April 23, 2018 9:00am Start: 12-13-2017 End: 04-23-2018 take 1 tablet by mouth once daily Zicixkwx62-Xlxs Vml-Lg-Aj6-Dha Discontinued 1 TAB PO Daily December 13, 2017 5:39am April 23, 2018 8:00am Start: 12-13-2017 End: 04-23-2018 take 1 tablet by mouth once daily Aldqqjwx59-Grto Wkg-Eo-Vc5-Dha Discontinued 1 TAB PO Daily December 13, 2017 1:00am April 23, 2018 9:00am Mgjrhuvi32-Xjbq Phu-Lj-Pf9-D slater ( Plus Dha) 27 mg iron-1 mg -312 mg-250 mg combo pack (5 sources) Start: 12-13-2017 End: 12-13-2017 Hrxlkhcq62-Cuvh Ozo-Xs-My0-D slater ( Plus Dha) 27 mg iron-1 mg -312 mg-250 mg combo pack Discontinued December 13, 2017 6:39am December 13, 2017 6:40am Start: 12-13-2017 End: 12-13-2017 Vclbulgk65-Fcnn Htc-Wo-Tw1-D slater ( Plus Dha) 27 mg iron-1 mg -312 mg-250 mg combo pack Discontinued December 13, 2017 5:39am December 13, 2017 5:40am Start: 12-13-2017 End: 12-13-2017 Vrhwsarg12-Ombe Ybe-Fw-Fe9-D slater ( Plus Dha) 27 mg iron-1 mg -312 mg-250 mg combo pack Discontinued December 13, 2017 1:00am December 13, 2017 6:40am promethazine hydrochloride 25 mg oral tablet (10 sources) Phenothiazine Start: 09-02-2017 End: 09-05-2017 take 25 mg by mouth every six hours Promethazine Discontinued 25 MG PO Q6H September 02, 2017 1:00am September 05, 2017 10:15am Start: 06-10-2017 End: 07-12-2017 take 12.5 mg by mouth every six hours Promethazine Discontinued 12.5 MG PO Q6H June 10, 2017 12:00am July 12, 2017 1:58pm Streb B Medication (5 sources) Start: 07-21-2017 End: 08-26-2017 Streb B Medication Discontin ued July 21, 2017 2:18am August 26, 2017 10:15pm Start: 07-21-2017 End: 08-26-2017 Streb B Medication Discontin ued July 21, 2017 1:18am August 26, 2017 9:15pm Start: 07-21-2017 End: 08-26-2017 Streb B Medication Discontin ued July 21, 2017 12:00am August 26, 2017 10:15pm traMADol hydrochloride 50 mg oral tablet (2 sources) Opioid Agonist Start: 03-28-2021 End: 03-28-2021 take 50 mg by mouth every four hours Tramadol Discontinued 50 MG PO Q4H 25 04March 28, 2021 12:00am March 28, 2021 7:30am Problems Active Problems Problem Classification Problem Date Documented Da te Episodic/Chronic Abdominal pain (7 sources) Unspecified abdominal pain; Translations: [Pelvic and perineal pain] Onset: 06-19-2021 Episodic Genitourinary symptoms and ill-defined conditions (7 sources) Bacteriuria; Translations: [Bacteriuria] Onset: 03-22-2024 10-07-2017 Episodic Hemorrhage during ; abruptio placenta; placenta previa (6 sources) Threatened miscarriage in first trimester; Translations: [Threatened ] 07-21-2017 Episodic Immunizations and screening for infectious disease (2 sources) Exposure to sexually transmissible disorder; Translations: [Contact with and (suspected) exposure to infections with a predominantly sexual mode of transmission] Onset: 03-22-2024 Episodic Menstrual disorders (1 source) Dysmenorrhea, unspecified; Translations: [DYSMENORRHEA UNSPECIFIED] Onset: 06-21-2021 Chronic Nausea and vomiting (7 sources) Nausea and vomiting; Translations: [Nausea with vomiting, unspecified] Onset: 05-31-2022 09-04-2017 Episodic Other complications of (6 sources) Vomiting of ; Translations: [Vomiting of , unspecified] 08-26-2017 Episodic Other complications of (1 source) Other specified related conditions, first trimester; Translations: [OTH SPEC PREG RELATED COND 1ST TRI] Onset: 05-31-2022 Episodic Other female genital disorders (5 sources) Vaginal bleeding; Translations: [Abnormal uterine and vaginal bleeding, unspecified] 10-04-2017 Chronic Other female genital disorders (3 sources) Abnormal uterine and vaginal bleeding, unspecified; Translations: [ABNORMAL UTERINE VAGINAL BLEED UNS] Onset: 06-11-2022 Chronic Other female genital disorders (1 source) Vaginal bleeding; Translations: [Vaginal spotting] Episodic Other gastrointestinal disorders (6 sources) Diarrhea; Translations: [Diarrhea, unspecified] 06-09-2017 Episodic Other and delivery including normal (6 sources) ; Translations: [Encounter for supervision of normal , unspecified, unspecified trimester] 10-07-2017 Episodic Other skin disorders (3 sources) Mass of wrist; Translations: [Localized swelling, [...] Spondylosis; intervertebral disc disorders; other back problems (6 sources) Backache; Translations: [Dorsalgia, unspecified] 10-07-2017 Episodic Spontaneous (1 source) Complete or unspecified spontaneous without complication; Translations: [COMPLETE/UNS SPONT AB W/O COMP] Onset: 06-12-2022 Episodic Substance-related disorders (3 sources) Nicotine dependence, cigarettes, uncomplicated; Translations: [Smoker] Onset: 06-12-2022 12-01-2018 Chronic Comment on above: Added secondary to d ocumentation in Social History. Urinary tract infections (6 sources) Urinary tract infectious disease; Translations: [Urinary tract infection, site not specified] 08-26-2017 Episodic Viral infection (6 sources) Acute viral disease; Translations: [Viral infection, [...] Test Name Value Interpretation Reference Range Facility HSV 1,2 IgG Specific Ab Brenda concepcion 03-30-2024 Herpes Simplex Virus I, IgG <0.91 Normal 0.00-0.90 [facility] Comment on above: Result Comment: Nega tive <0.91 Equivocal 0.91 - 1.09 Positive >1.09 Note: Negative indicates no antibodies detected to HSV-1. Equivocal may suggest early infection. If clinically appropriate, retest at later date. Positive indicates antibodies detected to HSV-1. Performed By: #### H SV 1,2IgG #### [facility] , Herpes Simplex Virus II, IgG 7.15 High 0.00-0.90 [facility] Comment on above: Result Comment: Nega tive <0.91 Equivocal 0.91 - 1.09 Positive >1.09 HSV-2 [...] results should be clinically correlated. Performed at: [facility] [address] [id number] Director Institution: Black Kerns PhD, Phone: [phone] PERFORMED BY: [place] [address] PATHOLOGIST STEAM ENGINEER KRISTY JACK M.D. Performed By: #### H SV 1,2IgG #### [facility] , C Urineon 03-25-2024 Bacteria identified Cx Nom (U) Microbiology PROCEDURE: Urine Culture [R1] SOURCE: U [...] Locations R1: This test was performed at: [facility], [address] [place] [address], [id number] [place] [address], Normal [facility] Comment on above: Performed By: #### 2 [id number] #### [facility] [address] [place] [address] Chlamydia/Gonococcus, NAAon 03-25-2024 C. trachomatis rRNA GILBERTO+probe Ql (Unsp spec) Negative Invalid Interpretation Code Negative [facility] Comment on above: Performed By: #### 1 [id number] #### [facility] [address] [place] [address] N. gonorrhoeae rRNA GILBERTO+probe Ql (Unsp spec) Negative Invalid Interpretation Code Negative [facility] Comment on above: Result Comment: Perf ormed at: =[facility] [place] [place] [id number] MD Jared Gutierrez Performed By: #### 1 [id number] #### [facility] [address] [place] [id number] Coding Summary.on 03-25-2024 Coding Summary. BJUWEhdh19WDt1rIe+PG hlYWQ+AF0RJPVdE46txD XggE8wE0ZYSUmXFowlNQ PLNBaFNtEpujDcGZ5jzR NjZXJu IC8+FG9hAJFkAxaziRHe y9J4cWE3E12drf4eACnb tKU5KMYhZhSjuvxil4oc eQm5DRlaFqqrFfRk ZXSkvH51UNH4eZ67Kv69 dURskPMmo8upuLv2VeBv KGVaTBG5hSdxIQurx0Oj SBZvG44vtLWjc5L4 IGNvbGxhcHNlOyBlbXB0 uN3fKQnecumoc8sajxsv Jxx3qo13bVOes8F2hLH9 G5WqdaG9EIArwYCq QsvuzLMJvP3pcbmei0wi jxwcGzUeXECrYSa5SQx5 WMLseAokOuYhGQ41FOW7 CCPkzdCzT7CiLVAb tItqRnE4p8R1Yi8DS4VX FtthW5CENAWDFJpmgII+ IP68by50L4FaNbyvKwf3 ISEgAMM7oGZ8pF9l LUZyANres8N3hIO6X1Tj dzSttt2py8daOWVyZOaz Q71qtBOqx8A5SLZjsKS2 RSRqbKewYxMvhX61 Oyc+QKYnaEnfg7LvSczm u0eoi0jgnPi4ZqgyUTWp egRaaJxjCPY8t4RbOw9x DENruBD4rPC3uH1t IjBhNgP2SSmfV530NkNp bLWnLvcxA27zV1OmgTX+ GGIlPht4UFCzbEwiYT1g M9AoTXEdnfbjoBIr iSdhFL3xKRXweglfCZMw cE5rWCVaT1v0BcYfLuM2 NYmpC3JtEHAtkbzyZg91 pN2lNbPeQgZ2INdy V3FmvsQ4METohXUrXXnr MLW4L06uq0W7AAXrNITn CAC7hMM3gR4edTnywqxv bGVmdDsgdmVydGlj XYbqPOtcU903MUMqyWkp PkNvZGluZyBEYXRlOiAg MDYvMTkvMjAyNDwvdGQ+ OSQeBCQ1wPjpQYZu oUXiTTfvGo9zvVdkjGij QU1hOYTfjomjCJBgiJ3n KDUeqAThrAznCO0iEBCc ckodc895KfMaVHF5 HYFwnROjX1LbpP0rXaUl MIIhPXXfR8JddMLhIBcn J787FDlnOmB4VLPuxnPv N9GkCAVfzYqyErX4 u4C0Rl9Om7JqykxyX6Kg qIKkIzMaMuxvVTu6P9Fl PjwvdHI+FW40WXLaFB33 ZFm2XYA1mVeqOOip SVEbR2NzjX7xNrGeTAXh ZGRkOyc+PHRhYmxlIHdp ZHRoPScxMDAlJyBzdHls ER0sQd0gNGHtUYXn fOujsWTkFzHxb4arMDXq ULfqLX2yqXyeO3CenVL9 OGOlu1n2Yx86A75pE0Qd dXA+JNGkpQY7uTK1 dL9nJmEeIkP1LCyqI693 BvAnrHVnSzzmw5ujm0qi hHp4UjA7AYQmspGluDoq WEB8y5SqJu78T74q IHdpZHRoPSIxNSUiIHZh uUktii4wyV8mNb8+PGNv tQL4oYY1eC3iFyRqHfI1 PUdlE723EbHfpWYy Jlkbr1min8caqRm8KaZy JXLbbpVwgEhqZHZ6s4Sa Ul52N0RkvOjfy2NaBwe8 pl91pUWqy5M4nTV0 B9FkNTGqrycirWBeyPsi RV4eFMBhfbkiAOImyI3p JMTxR7k9ZpIzNbO2EVkr U8IhpvO5HPZusNBn MNQdgQBVlJ2xnpage8hk wgzdZdOoDPZnIZg3AGx4 UHGplYncPlReWZM3RzG6 SPI6hKRcjX8fsBrn moepcN8sGbz+FZY1bPCt gLENRT1cUrljoLH+PHRk ZLW4nHtkKBkmLIFzpO8b QUPvM4l5VtNvRvT0 QDxyY4NafpQ9DNLfaXOv CVEbvLGYvO0mrrswc5xj kuioUlBhMODjABt2VLh1 LWFsaWduOiBsZWZ0 DqJ4HWS6jQWvoZ1mkBfj vpyjpO2vVml+QmlydGgg IRD2HYg3K5XoVjw7UOIk vQbxUY2gsHVtJPyb Df2llEpgoJbrHJ1oVBNx edrrr273TtTbd0xqWGKr rSNkMMloVUP6H35ao4A8 OYBrZNCqYLY2qWA1 hE6bbDxbhvnupISrpQpr xpUlbPkgHSitIGhbZ097 PQKhpHkpItGxXPu8F3Bx Pvb7JPBsdEraNM9e xXBbDHqzMu1ybXpdjBir NU1vBPNfdfwbw114VsNr r2ddAISzrLQoPLrkAMV2 F99bg1D4FIMzNASz FPN6eYP4pP3qkYhmpqsc bGVmdDsgdmVydGljYWwt EDgnV403EDOvaTlsDmCv kFq1V8CxOsd6BDVz bZadBQ9rmVDuAPezGe7b gUrbzKslAV1lDVKqyknz l319FmPls6jeMHQoxTCe LEscZVW0J23fb4R2 BMAjLBTaFNY0vJO2kW2a bGlnbjogbGVmdDsgdmVy iNnpJNgzXZfwF333DQPg cDsnPlBhdGllbnQg WTpdTOo8R7NvIwjmuCZ+ GE90IVNdMG94nZGrbPFh y8ypyMd5LiDsWMZgVZG5 fFosMMtxx6ZuHXWg B34nbNQwz3Y8EWMoeUmk oYMbStFfuSO1dO1pNZsk zmqzq3nrmspdMdcxd5sb wb76qB62B06tPJrg ZHRoPSIzMCUiIHZhbGln kq4rrI9yKk2+PGNvbCB3 jYO6jQ9tAKDyQpG6BTvj P232JoJhvZAuHpnh d5hqb5mgpDc5MhP0EJXt mjIluXkmEXQ9e4GgNa82 W16mHBanBYUnFJXsFBAa RYCkvHcphh9dsT3n Ii8+RSLckOV3nGG0fI7u VsXzQmI2CHlwL078SbYh zHTtDmxmI25fO7PgtOX+ NBJaGox6KVUhqWbm EW4nxDPsAKwmZj6uTUZ5 ZsZvOnOxQQrnC6RmTDKb kdwkjeyfbLO7KNGkIYOc dW00Bv7rpTdoIXPh xWBSiI7cbjabb9tjfpce QaNsVPDcOHr9ZBb4WNJw zTuyIfYzLVP2LaP7USC5 dOJijZ5gnPulctvm zG8zE4ZiBHEgjvbcLo80 oL6jTnOfSiD3NAocXcs+ YU0AHrVXBiAtYIMUOhvB Zo5JSPF1U8RmIua6 HYOjhAjpBC1bhGAmRSwk Lv1ajEaqnKopKJ2wFHZh htkfIQBgkX1eAMDhhBIv zCgwIC8uEXHntcpd i651KtIwSWL0DKCltXEp G1HucO4pNqYzEXZmAPLh C6RxfXRiSCbhJ839CEok RiO8GWVxbfVuS1Lq KKJygGrrMeV4t8D5Vr0i NB3yPc5kWOl8JI10SY95 qRLza0E7vTL3X2RjMDKr nblwetzhjHK9RYJe IDXloB41aXYcBTpoMv9k y7E0x466JQEbJRWvkY24 Hl3pvVxaAKSxyIJMaB6d gtjdz9npqavkDtVt ZSWxUMv7HXn8FCHybDmk CpEbHPY7VdJ7HPZ7zCCq eA7rpIppntnarI1nBka+ ZgarLJTtnsR5S5Cq Ryg1VWUkyLyjYD1shMQa YCxbHw7suUycnPahJL7d QUWpqjkiRPKkbL7lMPFu lLNmyUwiAR9zWSKk edgyt902KhGaLHA6JXWx eQOkP6ZekA1hIdNvHMPt WGWoQ1TtcCHiPGpcD290 PPlfOxT1GVHtkhSw F7WxWVIuzOtnWeP1k8A1 Rz7VWH3maFE1X3KhWlg1 NZHeaZveOA1efVUlFNxi Th1waVukrUxcGX4o PZAgtmhsESLtzV5oVEKv kOGfnArcPC6yGYAsgmle d076GfJlURL6VIXyhAKr N7IpeB7fWxMmTFDo JTYpU5UafWVgQTpdB389 MXojRnG7YWUpvdUcO9Cc IDCcwBktFpG0u5U1Cx5V lACjU6EnQ5g2M4Xi PjwvdHI+ZH99TPAoDT06 eGLvuVDdo2cnxFz8IiJt LYLfVAQ6gFhzOYefs2Bb DZJcC21euZOow2P0 IGNvbGxhcHNlOyBlbXB0 gS2hRXtjuassp3kdxybj Mjofy9axtc34lE09U67v IHdpZHRoPSIzMCUi SQCivClzvw6xwX6rEi0+ HFWxnCD9jAW2jZ8vAdEh HbF7BAdiH287MoUosSGd Ljalc8noo9ldoSy6 IjIwJSIgdmFsaWduPSJ0 f8ZjMt40X82lQFlwHERt YGBeMHYwZLLffUzzbs8l zO4uWm9+PE9qm5cu eo87tS55jFF+PHRkIHN0 tUscTKjzCLZeqV2yKHyz HoX2HHWrEwYeuI23jCVi BKdlZt4eyFqzpXja HY3zEAXqcfero759NtYx u6opZGPadYFcYQrrHYY0 B68ol1F6YRXtEZPmCTB9 yKU1aT9epQslmhwq bGVmdDsgdmVydGljYWwt LOamE050YWSnyMidMfKg fXTrR3isdzMVVV2uNmrt dGQ+MVEyXWG1gPjv AReeGLDlxW2fKYKtC0y5 RbKgLyQ3NPqtQ4IzwlT3 TFBulAKiKVMeaWXAmS7y auarv7dsyjieTfEa WEXbXLd1UTp3AHBipNcg NbIjSJR0UrI0VBY4pVFr hR6kqBvmnyohdD0vZgp+ RklOOjwvdGQ+PHRk BNL1uJjxTPebVMGlmE0g LGBuH6n7WqXwBcX8SCpy D5NrixE7MZUhnBLdBCVk gCSOjU0dzpjfo7rb vajtSlEsQDMbLHi7TLi8 JKYohLwxRrJuHLC0WrT7 JHE4lEXibB0iaAqmonca rI7qCbx+TVJOOjwv dGQ+QKXtOTV1oHraFSjg KMTxcG9yEIAtX9x6GpNm YqE1XPidA0ElosL4JCSk lCZiJBZidHVWlV8h tcrzy4mziysfTmZkRFIe IEv5UZb3PNGpsPasVxSr NRO3NbQ0JAC8tTYeeN2p rNhmxhfymD2dRpn+ OYG5NRT6VV80WT71C4Yj PjwvdGFibGU+PHRhYmxl IHdpZHRoPScxMDAlJyBz lQcyQJ6oWz1eIENw LWNvbGxhcHNlO (more content not included)... Normal [facility] Discharge Instructionson Discharge Instructions [id number] Normal [facility] ED Note-Physicianon 03-23-20 24 ED Note-Physician Basic Information Time Seen: Michael Feng PA-C 03/22/2024 20:19 Chief Complaint Painful urination for [...] and Complexity of Problems Differential Diagnosis: [] [facility] Data External documents reviewed: [] My EKG [...] day(s), # 14 cap(s), Refills(s) 0, Pharmacy: [facility] #[id number], 162.5, cm, 03/22/24 20:24:00 EDT, Height/Length [...] Kathia BRANDON In 3 days 03/25/2024 EDT [address] [facility], [place] [id number] [facility] (1) Additional Instructions: Call Dr for diagnosis based follow up Patient Education Safe Sex Dysuria Attestation Patient seen and evaluated by the physician assistant corporation counsel. Attending physician was present in the emergency department a (more content not included)... Normal [facility] Comment on above: Result Comment: Elec tronically Signed By: Michael Feng PA-C\.br\Date and Time Signed: 03/22/24 21:23 EDT\.br\Electronically Co-Signed By: Lex Davis DO\.br\Date and Time Co-Signed: 03/23/24 01:47 EDT Consent for Treatmenton 03-07 Consent for Treatment [id number] #1.00TIFF Normal [facility] ED Clinical Summaryon 2023 ED Clinical Summary [place] [id number] ED Clinical Summary Person Information Name: DAVID JOYCE [facility] Age: 28 Years : 1995 Sex: Female Language: French PCP: Kathia BRANDON DO Marital Status: Single [...] 03/22/2024 21:26:04 03/22/2024 21:26:04 03/22/2024 21:26:04 ADDRESS: [address] [place] [phone] PHYS DOC NOTES: MEDICAL INFORMATION: Prescriptions Given: Medications to Continue Taking That Have Changed [id number], [address] [place], [place] [phone], [phone] START: doxycycline (doxycycline hyclate 100 mg Cap) [...] Follow up: With: Address: When: Kathia BRANDON [address] [place] [address], [address] [address] Business (1) In 3 days 03/25/2024 Comments: Call Dr for diagnosis based follow up DIAGNOSIS: Dysuria; STD exposure Normal [facility] ED Patient Education Noteon 03-22-2024 ED [...] Follow these instructions at home: ? Take qgpb-mkr-syuegnb and prescription medicines only as told by [...] provider. Document Revised: 02/27/2021 Document Reviewed: 02/27/2021 Elsevier Patient Education ? 2022 [employer]. Urology Dysuria Dysuria is pain or discomfort [...] these instructions at home: Medicines ? Take orjq-skj-iwbkcif and prescription medicines only as told by [...] worse. I (more content not included)... Normal [facility] ED Patient Summaryon 024 ED Patient Summary [place] [id number] Patient Discharge Instructions Person Information Name: DAVID JOYCE Age: 28 Years Arrival Date: 03/22/2024 20:17:10 Discharge Diagnosis: Dysuria; STD exposure Primary Care Physician: Kathia BRANDON DO Provider Information Primary Provider: Lex Davis DO Advanced Glass Curvature Gauger:None The exam and treatment you received in the Emergency Department were for an urgent problem and are not intended as complete care. It is important that you follow up with a doctor, nurse practitioner, or physician?s assistant corporation counsel for ongoing care. If your symptoms become worse or you do not improve as expected and you are unable to reach your usual health care provider, you should return to the Emergency Department. We are available 24 hours a day. DAVID JOYCE has been given the following list of patient education materials, prescriptions and follow-up instructions: Follow-up Instructions: With: Address: When: Kathia BRANDON [address] [place] [address], [place] [phone] Business (1) In 3 days 03/25/2024 Comments: [...] opioids can be used to help relieve dyzyajer-em-vcsiou pain and are often prescribed following a [...] be struggling with addiction, tell your health daycare worker and ask for guidance or call [facility] Jessica (more content not included)... Normal [facility] SEROLOGYOrdered By: Vasu Cifuentese on 03-22-2024 HCG.beta subunit (U) [Moles/Vol] Negative Normal [facility] Man Sero U BetaHcg Qualon 03-22-2024 HCG.beta subunit (U) [Moles/Vol] Negative Normal [facility] Comment on above: Performed By: #### 2 [id number] #### [facility] [address] [place] [address] UA with Cult Rflxon 03-22-20 24 Bilirubin Ql (U) Negative Normal Negative [facility] Comment on above: Performed By: #### 4 [id number] #### [facility] [address] [place] [address] Clarity (U) Clear Normal Clear [facility] Comment on above: Performed By: #### 4 [id number] #### [facility] [address] [place] [address] Color (U) Light-Yellow Normal Yellow [facility] Comment on above: Result Comment: Micr oscopic readings are only performed on those samples that meet specific criteria set forth by [facility]. Performed By: #### 4 [id number] #### [facility] [address] [place] [address] Epithelial cells.squamous Auto (Urine sed) [#/Area] 3-4 Invalid Interpretation Code [facility] Comment on above: Performed By: #### 4 [id number] #### [facility] [address] [place] [address] Glucose Ql (U) Negative Normal Negative [facility] Comment on above: Performed By: #### 4 [id number] #### [facility] [address] [place] [address] Hemoglobin Auto test strip (U) [Mass/Vol] Negative Normal Negative [facility] Comment on above: Performed By: #### 4 [id number] #### [facility] [address] [place] [address] Ketones Auto test strip Ql (U) Negative Normal Negative [facility] Comment on above: Performed By: #### 4 [id number] #### [facility] [address] [place] [address] Leukocyte esterase Auto test strip Ql (U) 75 Rosa M/uL Abnormal Negative [facility] Comment on above: Performed By: #### 4 [id number] #### [facility] [address] [place] [address] Mucus Auto Ql (U) 1+ [id number] Abnormal Negative [facility] Comment on above: Performed By: #### 4 [id number] #### [facility] [address] [place] [address] Nitrite Auto test strip Ql (U) Negative Normal Negative [facility] Comment on above: Performed By: #### 4 [id number] #### [facility] [address] [place] [address] pH (U) 6.5 [pH] Invalid Interpretation Code 5.0-9.0 [facility] Comment on above: Performed By: #### 4 [id number] #### [facility] [address] [place] [address] Protein Ql (U) Trace Abnormal Negative [facility] Comment on above: Performed By: #### 4 [id number] #### [facility] [address] [place] [address] RBC Ql (U) 4-20 Abnormal 0-3 [facility] Comment on above: Performed By: #### 4 [id number] #### [facility] [address] [place] [address] Specific gravity (U) [Rel density] 1.027 Invalid Interpretation Code 1.005-1.030 [facility] Comment on above: Performed By: #### 4 [id number] #### [facility] [address] [place] [address] Urobilinogen (U) [Mass/Vol] Negative Normal Negative [facility] Comment on above: Performed By: #### 4 [id number] #### [facility] [address] [place] [address] WBC Auto (Urine sed) [#/Area] 6-15 Abnormal 0-5 [facility] Comment on above: Performed By: #### 4 [id number] #### [facility] [address] [place] [address] Type of Urine collection method Clean Catch Normal [facility] Comment on above: Performed By: #### 4 [id number] #### [facility] [address] [place] [address] URINALYSISOrdered By: SYSTEM SYSTEM on 03-22-2024 Bilirubin Ql (U) Negative Normal Negativemg/dL FT UA Auto SS Clarity (U) Clear (03/22/24 8:30 PM) Normal Clear [facility] UA Auto SS Color (U) Light-Yellow 1 (03/22/24 8:30 PM) Normal Yellow [facility] UA Auto SS Comment on above: Interpretive Data: M icroscopic readings are only performed on those samples that meet specific criteria set forth by [facility]. Epithelial cells.squamous Auto (Urine sed) [#/Area] 3-4 graded/HPF Invalid Interpretation Code [facility] UA Auto SS Glucose Ql (U) Negative [...] Desc Clean Catch (03/22/24 8:30 PM) Normal [facility] UA Auto SS Consent for Treatmenton 03-08 Consent for Treatment [id number] #1.00CD:127 Normal [facility] Discharge Instructionson Discharge Instructions [id number]#1.00CD:127 Normal [facility] ED Clinical Summaryon 2022 ED Clinical Summary [place] [id number] ED Clinical Summary Person Information Name: DAVID JOYCE[facility] Age: 27 Years : 1995 Sex: Female Language: French PCP: Kathia BRANDON DO Marital Status: Single [...] 03/26/2023 01:26:03 03/26/2023 01:26:03 03/26/2023 01:26:03 ADDRESS: [address] [place] [id number] PHYS DOC NOTES: MEDICAL INFORMATION: Prescriptions Given: New Medications [id number], [address], [place] [id number], [phone] doxycycline (doxycycline hyclate 100 mg Cap) 1 Capsules By Mouth 2 times a day. Refills: 0. Medications to Continue with No Changes Other Medications hydrOXYzine (Vistaril 25 mg Cap) 1-2 tabs By Mouth 3 times a day as needed for itching. Refills: 0. PATIENT EDUCATION INFORMATION: Instructions: Gonorrhea Follow up: With: Address: When: Kathia BRANDON [address] [place] [address], [place] [id number] Business (1) In 3 days 03/29/2023 Comments: Return to the emergency room if you develop any symptoms. DIAGNOSIS: 1:STD (sexually transmitted disease) Normal [facility] ED Note-Physicianon 03-26-20 ED Note-Physician Basic Information Time Seen: Mo Farias M.D. 03/26/2023 00:13 Chief Complaint states was told she had an std and would like to be treated for it. also tattoo to right thigh has been a little irritated History of Present Illness The patient is a 27-year-old -[place] female who presented to the emergency room for treatment for gonorrhea. The patient states a week ago she was seen at [facility] and she had pelvic culture and she [...] and Complexity of Problems Differential Diagnosis: [] [facility] Data External documents reviewed: [] My EKG interpretation: [] My CT interpretation: [] My X-ray interpretation: [] My Ultrasound interpretation: [] Decision rules/scores evaluated: [] Discussed with: [] Treatment and Disposition ED Course: The patient presented for treatment for sexually transmitted disease. She has been seen at [facility] and she was called and told that [...] BID, # 14 cap(s), Refills(s) 0, Pharmacy: [id number], 162, cm, 03/26/23 0:10:00 EDT, Height/Length Dosing, 68.3, kg, 03/26/23 0:10:00 EDT, Weight Dosing Medications Administered Given cefTRIAXone IM, 500 mg, IntraMuscular Disposition Plan Patient Discharge Condition Stable Discharge Disposition Discharged home Discharge Prescription List Prescriptions doxycycline hyclate 100 mg Cap, 100 mg= 1 cap(s), Oral, BID Follow-up With When Contact Information Kathia BRANDON In 3 days 03/29/[address] [place] [address] [facility] (1) Additional Instructions: Return to the emergency [...] Diagnostic Results No qualifying data available. Normal [facility] Comment on above: Result Comment: Elec tronically Signed By: Mo aFrias M.D..gary\Date and Time Signed: 03/26/23 02:05 EDT ED [...] Follow these instructions at home: ? Take ihap-qjo-penxodr and prescription medicines as told by your [...] any quest (more content not included)... Normal [facility] ED Patient Summaryon 023 ED Patient Summary [place] [id number] Patient Discharge Instructions Person Information Name: DAVID JOYCE Age: 27 Years Arrival Date: 03/26/2023 00:03:16 Discharge Diagnosis: 1:STD (sexually transmitted disease) Primary Care Physician: Kathia BRANDON DO Provider Information Primary Provider: Mo Farias M.D. Advanced Glass Curvature Gauger:None The exam and treatment you received in the Emergency Department were for an urgent problem and are not intended as complete care. It is important that you follow up with a doctor, nurse practitioner, or physician?s assistant corporation counsel for ongoing care. If your symptoms become worse or you do not improve as expected and you are unable to reach your usual health care provider, you should return to the Emergency Department. We are available 24 hours a day. DAVID JOYCE has been given the following list of patient education materials, prescriptions and follow-up instructions: Follow-up Instructions: With: Address: When: Kathia BRANDON [address] [place], [place] [id number] [facility] (1) In 3 days 03/29/2023 Comments: Return [...] opioids can be used to help relieve zmqqcwuf-sk-jvozhi pain and are often prescribed following a [...] be struggling with addiction, tell your health daycare worker and ask for (more content not included)... Normal [facility] ABO AND RH TYPEon 06-11-2022 ABO and Rh group Nom (Bld) ABO Rh Typing B Rh Positive Normal [facility] Comment on above: Performed By: #### A CATALINA #### [facility] [address] [place] [address] Dr. Nicol Danielson CBC AUTO DIFFon 06-11-2022 BASO # 0.0 103/ul Normal 0.0-0.1 [facility] Comment on above: Performed By: #### C SHEREE BOO, JANI #### [facility] [address] [place] [address] Dr. Nicol Danielson Basophils/100 WBC (Bld) 0.2 % Normal 0.2-2.0 [facility] Comment on above: Performed By: #### C SHEREE BOO, JANI #### [facility] [address] [place] [address] Dr. Nicol Danielson EO # 0.0 103/ul Normal 0.0-0.7 [facility] Comment on above: Performed By: #### C EMA LIPTimbo, JANI #### [facility] [address] [place] [address] Dr. Nicol Danielson Eosinophils/100 WBC (Bld) 0.4 % Critically low 0.9-7.0 [facility] Comment on above: Performed By: #### C EMA LIPA, JANI #### [facility] [address] [place] [address] Dr. Nicol Danielson Erythrocyte distribution width (RBC) [Ratio] 16.2 % Critically high 11.0-15.0 [facility] Comment on above: Performed By: #### C MP LIPA, JANI #### [facility] [address] [place] [address] Dr. Nicol Danielson Hematocrit (Bld) [Volume fraction] 33.7 % Critically low 36.0-48.0 [facility] Comment on above: Performed By: #### C MP LIPA, JANI #### [facility] [address] [place] [address] Dr. Nicol Danielson Hemoglobin (Bld) [Mass/Vol] 10.7 g/dL Critically low 12.0-16.0 [facility] Comment on above: Performed By: #### C EMA LIPA, JANI #### [facility] [address] [place] [address] Dr. Nicol Danielson IG # 0.03 10e3/ul Normal 0.00-0.03 [facility] Comment on above: Performed By: #### C EMA LIPA, JANI #### [facility] [address] [place] [address] Dr. Nicol Danielson IG % 0.4 % Normal 0.0-0.5 [facility] Comment on above: Performed By: #### C EMA LIPA, JANI #### [facility] [address] [place] [address] Dr. Nicol Danielson LYMPH # 1.3 103/ul Normal 1.2-3.8 [facility] Comment on above: Performed By: #### C EMA LIPA, JANI #### [facility] [address] [place] [address] Dr. Nicol Danielson Lymphocytes/100 WBC (Bld) 16.1 % Critically low 20.5-60.0 [facility] Comment on above: Performed By: #### C EMA LIPA, JANI #### [facility] [address] [place] [address] Dr. Nicol Danielson MANUAL DIFF REQ NO Normal [facility] Comment on above: Performed By: #### C EMA LIPA, JANI #### [facility] [address] [place] [address] Dr. Nicol Danielson MCH (RBC) [Entitic mass] 26.8 pg Normal 26.7-34.0 [facility] Comment on above: Performed By: #### C SHEREE BOO, JANI #### [facility] [address] [place] [address] Dr. Nicol Danielson MCHC (RBC) [Mass/Vol] 31.8 g/dL Normal 29.9-35.2 [facility] Comment on above: Performed By: #### C EMA LIPA, JANI #### [facility] [address] [place] [address] Dr. Nicol Danielson MCV (RBC) [Entitic vol] 84.3 fL Normal 81.0-99.0 [facility] Comment on above: Performed By: #### C EMA LIPA, JANI #### [facility] [address] [place] [address] Dr. Nicol Danielson MONO # 0.6 103/ul Normal 0.3-0.8 [facility] Comment on above: Performed By: #### C EMA LIPA, JANI #### [facility] [address] [place] [address] Dr. Nicol Danielson Monocytes/100 WBC (Bld) 7.8 % Normal 1.7-12.0 [facility] Comment on above: Performed By: #### C EMA LIPA, JANI #### [facility] [address] [place] [address] Dr. Nicol Danielson NEUT # 6.1 103/ul Normal 1.4-6.5 [facility] Comment on above: Performed By: #### C EMA LIPA, JANI #### [facility] [address] [place] [address] Dr. Nicol Danielson Neutrophils/100 WBC (Bld) 75.1 % Critically high 43.0-75.0 [facility] Comment on above: Performed By: #### C EMA LIPA, JANI #### [facility] [address] [place] [address] Dr. Nicol Danielson Platelet mean volume (Bld) [Entitic vol] 10.5 fL Normal 9.5-13.5 [facility] Comment on above: Performed By: #### C MP, LIPA, JANI #### [facility] [address] [place] [address] [address] Nicol Danielson PLT 211 103/ul Normal 150-450 [facility] Comment on above: Performed By: #### C MP, LIPA, JANI #### [facility] [address] [place] [address] [address] Nicol Danielson RBC 4.00 106/ul Critically low 4.20-5.40 [facility] Comment on above: Performed By: #### C MP, LIPA, JAIN #### [facility] [address] [place] [address] [address] Nicol Danielson WBC 8.1 103/ul Normal 4.0-11.0 [facility] Comment on above: Performed By: #### C MP, LIPA, JANI #### [facility] [address] [place] [address] Dr. Nicol Danielson ER URINE PROFILEon 2 Bilirubin Ql (U) Negative Normal NEGATIVE [facility] Comment on above: Performed By: #### C MP, LIPA, JANI #### [facility] [address] [place] [address] Dr. Nicol Danielson Clarity (U) SL CLOUDY Abnormal CLEAR [facility] Comment on above: Performed By: #### C MP, LIPA, JANI #### [facility] [address] [place] [address] Dr. Nicol Danielson Color (U) RED Abnormal YELLOW [facility] Comment on above: Performed By: #### C MP, LIPA, JANI #### [facility] [address] [place] [address] Dr. Nicol Danielson ERUAHD A micrscopic examination will be performed if indicated. Normal [facility] Comment on above: Performed By: #### C MP, LIPA, JANI #### [facility] [address] [place] [address] Dr. Nicol Danielson Glucose Ql (U) Negative Normal NEGATIVE [facility] Comment on above: Performed By: #### C MP, LIPA, JANI #### [facility] [address] [place] [address] [address] Nicol Danielson Hemoglobin Ql (U) LARGE Abnormal NEGATIVE [facility] Comment on above: Performed By: #### C MICHELE BOOA, JANI #### [facility] [address] [place] [address] [address] Nicol Danielson Ketones Ql (U) Negative Normal NEGATIVE [facility] Comment on above: Performed By: #### C EMA LIPA, JANI #### [facility] [address] [place] [address] Dr. Nicol Danielson LEUKOCYTES Negative Normal NEGATIVE [facility] Comment on above: Performed By: #### C SHEREE BOO, JANI #### [facility] [address] [place] [address] Dr. Nicol Danielson Nitrite Ql (U) Negative Normal NEGATIVE [facility] Comment on above: Performed By: #### C SHEREE BOO, JANI #### [facility] [address] [place] [address] Dr. Nicol Danielson pH (U) 6.0 [pH] Normal 5-9 [facility] Comment on above: Performed By: #### C SHEREE BOO, JANI #### [facility] [address] [place] [address] Dr. Nicol Danielson SPEC GRAVITY 1.025 Normal 1.005-<=1.025 [facility] Comment on above: Performed By: #### C SHEREE BOO, JANI #### [facility] [address] [place] [address] Dr. Nicol Danielson UA PROTEIN TRACE Normal NEGATIVE/ TRACE [facility] Comment on above: Performed By: #### C SHEREE BOO, JANI #### [facility] [address] [place] [address] Dr. Nicol Danielson UR MICRO IND INDICATED Normal [facility] Comment on above: Performed By: #### C MICHELE BOOA, JANI #### [facility] [address] [place] [address] Dr. Nicol Danielson Urobilinogen Qn (U) 0.2 {Raj'U}/dL Normal 0.2 - 1. 0 [facility] Comment on above: Performed By: #### C SHEREE BOO AMY #### [facility] [address] [place] [address] Dr. Nicol Danielson PREG QUANT HCGon 06-11-2022 HCG QUANT 6683 mIU/mL Normal [facility] Comment on above: Performed By: #### C SHEREE BOO AMY #### [facility] [address] [place] [address] Dr. Nicol Danielson HCG RANGE SEE BELOW Normal [facility] Comment on above: Result Comment: 5-50 0.2-1 WEEK 50-500 1-2 WEEKS 100-5,000 2-3 WEEKS 500-10,000 3-4 WEEKS 1,000-50,000 4-5 WEEKS 10,000-100,000 5-6 WEEKS 15,000-200,000 6-8 WEEKS 10,000-100,000 2-3 MONTHS Performed By: #### C SHEREE BOO AMY #### [facility] [address] [place] [address] Dr. Nicol Danielson PROF CHEM 8 (BAS METB)on Anion gap [Moles/Vol] 10.9 mmol/L Normal [facility] Comment on above: Performed By: #### B MP #### [facility] [address] [place] [address] Dr. Nicol Danielson Calcium [Mass/Vol] 8.1 mg/dL Critically low 8.5-10.1 [facility] Comment on above: Performed By: #### B MP #### [facility] [address] [place] [address] Dr. Nicol Danielson Chloride [Moles/Vol] 107 mmol/L Normal 98-107 [facility] Comment on above: Performed By: #### B MP #### [facility] [address] [place] [address] Dr. Nicol Danielson CO2 [Moles/Vol] 26.3 mmol/L Normal 21.0-32.0 [facility] Comment on above: Performed By: #### B MP #### [facility] [address] [place] [address] [address] Nicol Danielson Creatinine [Mass/Vol] 0.59 mg/dL Normal 0.55-1.02 [facility] Comment on above: Performed By: #### B MP #### [facility] [address] [place] [address] [address] Nicol Danielson EGFR-AF MOLDOVAN >60 Normal >=60 [facility] Comment on above: Performed By: #### B MP #### [facility] [address] [place] [address] [address] Nicol Danielson EGFR-NON AF MOLDOVAN >60 Normal >=60 [facility] Comment on above: Performed By: #### B MP #### [facility] [address] [place] [address] [address] Nicol Danielson Glucose [Mass/Vol] 89 mg/dL Normal 74-106 [facility] Comment on above: Performed By: #### B MP #### [facility] [address] [place] [address] [address] Nicol Danielson Potassium [Moles/Vol] 3.2 mmol/L Critically low 3.5-5.1 [facility] Comment on above: Performed By: #### B MP #### [facility] [address] [place] [address] [address] Nicol Danielson Sodium [Moles/Vol] 141 mmol/L Normal 136-145 [facility] Comment on above: Performed By: #### B MP #### [facility] [address] [place] [address] [address] Nicol Danielson Urea nitrogen [Mass/Vol] 7.0 mg/dL Normal 7.0-18.0 [facility] Comment on above: Performed By: #### B MP #### [facility] [address] [place] [address] [address] Nicol Danielson Urea nitrogen/Creatinine [Mass ratio] 11.9 mg/mg Normal [facility] Comment on above: Performed By: #### B MP #### [facility] [address] [place] [address] Dr. Nicol Danielson URINE MICROSCOPIC ONLYon BACTERIA NONE SEEN Normal NONE SEEN [facility] Comment on above: Performed By: #### C MP, LIPA, JANI #### [facility] [address] [place] [address] Dr. Nicol Danielson Bacteria identified Cx Nom (U) NOT INDICATED Normal [facility] Comment on above: Performed By: #### C MP, LIPA, JANI #### [facility] [address] [place] [address] Dr. Nicol Danielson CAST NONE SEEN Normal NONE SEEN [facility] Comment on above: Performed By: #### C MP, LIPA, JANI #### [facility] [address] [place] [address] Dr. Nicol Danielson Crystals LM Nom (Urine sed) NONE SEEN Normal NONE SEEN [facility] Comment on above: Performed By: #### C MP, LIPA, JANI #### [facility] [address] [place] [address] Dr. Nicol Danielson Epithelial cells LM Ql (Urine sed) RARE Normal NONE SEEN /RARE [facility] Comment on above: Performed By: #### C MP, LIPA, JANI #### [facility] [address] [place] [address] Dr. Nicol Danielson MUCOUS NONE SEEN Normal NONE SEEN [facility] Comment on above: Performed By: #### C MP, LIPA, JANI #### [facility] [address] [place] [address] Dr. Nicol Danielson RBC 75-100 Abnormal 0-2 [facility] Comment on above: Performed By: #### C MP, LIPA, JANI #### [facility] [address] [place] [address] Dr. Nicol Danielson WBC 2-5 Abnormal NONE SEEN [facility] Comment on above: Performed By: #### C MP, LIPA, JANI #### [facility] [address] [place] [address] Dr. Nicol Danielson US PREG TVon 06-11-2022 [...] MADDI SRINIVASAN Date: 2022-06-11 15:14 Normal [facility] AMYLASEon 05-29-2022 Amylase [Catalytic activity/Vol] 75 U/L Normal 25-115 [facility] Comment on above: Performed By: #### C MP, LIPA, JANI #### [facility] [address] [place] [address] Dr. Nicol Danielson CBC AUTO DIFFon 05-29-2022 BASO # 0.0 103/ul Normal 0.0-0.1 [facility] Comment on above: Performed By: #### C BC #### [facility] [address] [place] [address] Dr. Nicol Danielson Basophils/100 WBC (Bld) 0.6 % Normal 0.2-2.0 [facility] Comment on above: Performed By: #### C BC #### [facility] [address] [place] [address] Dr. Nicol Danielson EO # 0.1 103/ul Normal 0.0-0.7 [facility] Comment on above: Performed By: #### C BC #### [facility] [address] [place] [address] Dr. Nicol Danielson Eosinophils/100 WBC (Bld) 0.7 % Critically low 0.9-7.0 [facility] Comment on above: Performed By: #### C BC #### [facility] [address] [place] [address] Dr. Nicol Danielson Erythrocyte distribution width (RBC) [Ratio] 17.0 % Critically high 11.0-15.0 [facility] Comment on above: Performed By: #### C BC #### [facility] [address] [place] [address] Dr. Nicol Danielson Hematocrit (Bld) [Volume fraction] 39.9 % Normal 36.0-48.0 [facility] Comment on above: Performed By: #### C BC #### [facility] [address] [place] [address] Dr. Nicol Danielson Hemoglobin (Bld) [Mass/Vol] 12.9 g/dL Normal 12.0-16.0 [facility] Comment on above: Performed By: #### C BC #### [facility] [address] [place] [address] Dr. Nicol Danielson IG # 0.03 10e3/ul Normal 0.00-0.03 [facility] Comment on above: Performed By: #### C BC #### [facility] [address] [place] [address] Dr. Nicol Danielson IG % 0.4 % Normal 0.0-0.5 [facility] Comment on above: Performed By: #### C BC #### [facility] [address] [place] [address] Dr. Nicol Danielson LYMPH # 1.3 103/ul Normal 1.2-3.8 [facility] Comment on above: Performed By: #### C BC #### [facility] [address] [place] [address] Dr. Nicol Danielson Lymphocytes/100 WBC (Bld) 19.1 % Critically low 20.5-60.0 [facility] Comment on above: Performed By: #### C BC #### [facility] [address] [place] [address] Dr. Nicol Danielson MANUAL DIFF REQ NO Normal [facility] Comment on above: Performed By: #### C BC #### [facility] [address] [place] [address] Dr. Nicol Danielson MCH (RBC) [Entitic mass] 26.8 pg Normal 26.7-34.0 [facility] Comment on above: Performed By: #### C BC #### [facility] [address] [place] [address] Dr. Nicol Danielson MCHC (RBC) [Mass/Vol] 32.3 g/dL Normal 29.9-35.2 [facility] Comment on above: Performed By: #### C BC #### [facility] [address] [address] [address] Nicol Danielson MCV (RBC) [Entitic vol] 82.8 fL Normal 81.0-99.0 [facility] Comment on above: Performed By: #### C BC #### [facility] [address] [address] [address] Nicol Danielson MONO # 0.5 103/ul Normal 0.3-0.8 [facility] Comment on above: Performed By: #### C BC #### [facility] [address] [address] [address] Nicol Danielson Monocytes/100 WBC (Bld) 7.5 % Normal 1.7-12.0 [facility] Comment on above: Performed By: #### C BC #### [facility] [address] [place] [address] Dr. Nicol Danielson NEUT # 4.9 103/ul Normal 1.4-6.5 [facility] Comment on above: Performed By: #### C BC #### [facility] [address] [place] [address] Dr. Nicol Danielson Neutrophils/100 WBC (Bld) 71.7 % Normal 43.0-75.0 [facility] Comment on above: Performed By: #### C BC #### [facility] [address] [address] [address] Nicol Danielson Platelet mean volume (Bld) [Entitic vol] 10.6 fL Normal 9.5-13.5 [facility] Comment on above: Performed By: #### C BC #### [facility] [address] [address] [address] Nicol Danielson PLT 202 103/ul Normal 150-450 [facility] Comment on above: Performed By: #### C BC #### [facility] [address] [address] [address] Nicol Danielson RBC 4.82 106/ul Normal 4.20-5.40 [facility] Comment on above: Performed By: #### C BC #### [facility] [address] [place] [address] Dr. Nicol Danielson WBC 6.8 103/ul Normal 4.0-11.0 [facility] Comment on above: Performed By: #### C BC #### [facility] [address] [place] [address] Dr. Nicol Danielson ER URINE PROFILEon 2 Bilirubin Ql (U) Negative Normal NEGATIVE The [facility] Comment on above: Performed By: #### C MP, LIPA, JANI #### [facility] [address] [place] [address] Dr. Nicol Danielson Clarity (U) CLEAR Normal CLEAR [facility] Comment on above: Performed By: #### C MP LIPA, JANI #### [facility] [address] [place] [address] Dr. Nicol Danielson Color (U) LT. YELLOW Normal YELLOW [facility] Comment on above: Performed By: #### C MP, LIPA, JANI #### [facility] [address] [place] [address] Dr. Nicol FREYMecca A micrscopic examination will be performed if indicated. Normal [facility] Comment on above: Performed By: #### C MP LIPA, JANI #### [facility] [address] [place] [address] Dr. Nicol Danielson Glucose Ql (U) Negative Normal NEGATIVE The [facility] Comment on above: Performed By: #### C MP, LIPA, JANI #### [facility] [address] [place] [address] Dr. Nicol Danielson Hemoglobin Ql (U) Negative Normal NEGATIVE The [facility] Comment on above: Performed By: #### C MP, LIPA, JANI #### [facility] [address] [place] [address] Dr. Nicol Danielson Ketones Ql (U) Negative Normal NEGATIVE [facility] Comment on above: Performed By: #### C MP, LIPA, JANI #### [facility] [address] [place] [address] Dr. Nicol Danielson LEUKOCYTES Negative Normal NEGATIVE [facility] Comment on above: Performed By: #### C MP, LIPA, JANI #### [facility] [address] [place] [address] Dr. Nicol Danielson Nitrite Ql (U) Negative Normal NEGATIVE [facility] Comment on above: Performed By: #### C MP, LIPA, JANI #### [facility] [address] [address] [address] Nicol Danielson pH (U) 7.0 [pH] Normal 5-9 [facility] Comment on above: Performed By: #### C MP, LIPA, JANI #### [facility] [address] [place] [address] Dr. Nicol Danielson SPEC GRAVITY 1.020 Normal 1.005-<=1.025 [facility] Comment on above: Performed By: #### C MP, LIPA, JANI #### [facility] [address] [place] [address] Dr. Nicol Danielson UA PROTEIN Negative Normal NEGATIVE/ TRACE [facility] Comment on above: Performed By: #### C MP, LIPA, JANI #### [facility] [address] [place] [address] Dr. Nicol Danielson UR MICRO IND NOT INDICATED Normal The [facility] Comment on above: Performed By: #### C MP, LIPA, JANI #### [facility] [address] [place] [address] Dr. Nicol Danielson Urobilinogen Qn (U) 0.2 {Raj'U}/dL Normal 0.2 - 1. 0 [facility] Comment on above: Performed By: #### C MP, LIPA, JANI #### [facility] [address] [place] [address] Dr. Nicol Danielson LIPASEon 05-29-2022 Lipase [Catalytic activity/Vol] 104.0 U/L Normal 73.0-393.0 [facility] Comment on above: Performed By: #### C MP, LIPA, JANI #### [facility] [address] [place] [address] Dr. Nicol Danielson URon 05-29-2022 , QUAL Positive Abnormal NEGATIVE [facility] Comment on above: Performed By: #### C SHEREE BOO, JANI #### [facility] [address] [address] [address] Nicol Danielson PROF 14(COMP METB)on 022 Albumin [Mass/Vol] 3.6 g/dL Normal 3.4-5.0 [facility] Comment on above: Performed By: #### C MICHELE BOOA, JANI #### [facility] [address] [address] [address] Nicol Danielson Albumin/Globulin [Mass ratio] 1.1 {ratio} Normal [facility] Comment on above: Performed By: #### C SHEREE BOO, JANI #### [facility] [address] [place] [address] Dr. Nicol Danielson ALP [Catalytic activity/Vol] 49 U/L Normal 46-116 [facility] Comment on above: Performed By: #### C MICHELE BOOA, JANI #### [facility] [address] [place] [address] Dr. Nicol Danielson ALT [Catalytic activity/Vol] 12 U/L Critically low 14-59 [facility] Comment on above: Performed By: #### C SHEREE BOO, JANI #### [facility] [address] [place] [address] Dr. Nicol Danielson Anion gap [Moles/Vol] 11.2 mmol/L Normal [facility] Comment on above: Performed By: #### C MICHELE BOOA, JANI #### [facility] [address] [address] [address] Nicol Danielson AST [Catalytic activity/Vol] 10 U/L Critically low 15-37 [facility] Comment on above: Performed By: #### C MICHELE BOOA, JANI #### [facility] [address] [place] [address] Dr. Nicol Danielson Bilirubin [Mass/Vol] 0.3 mg/dL Normal 0.2-1.0 [facility] Comment on above: Performed By: #### C MICHELE BOOA, JANI #### [facility] [address] [address] [address] Nicol Danielson Calcium [Mass/Vol] 8.7 mg/dL Normal 8.5-10.1 [facility] Comment on above: Performed By: #### C MP, LIPA, JANI #### [facility] [address] [place] [address] Dr. Nicol Danielson Chloride [Moles/Vol] 103 mmol/L Normal 98-107 [facility] Comment on above: Performed By: #### C MP, LIPA, JANI #### [facility] [address] [place] [address] Dr. Nicol Danielson CO2 [Moles/Vol] 24.8 mmol/L Normal 21.0-32.0 [facility] Comment on above: Performed By: #### C MP, LIPA, JANI #### [facility] [address] [place] [address] Dr. Nicol Danielson Creatinine [Mass/Vol] 0.56 mg/dL Normal 0.55-1.02 [facility] Comment on above: Performed By: #### C MP, LIPA, JANI #### [facility] [address] [place] [address] Dr. Nicol Danielson EGFR-AF MOLDOVAN >60 Normal >=60 [facility] Comment on above: Performed By: #### C MP, LIPA, JANI #### [facility] [address] [place] [address] Dr. Nicol Danielson EGFR-NON AF MOLDOVAN >60 Normal >=60 [facility] Comment on above: Performed By: #### C MP, LIPA, JANI #### [facility] [address] [address] [address] Nicol Danielson Globulin (S) [Mass/Vol] 3.3 g/dL Normal [facility] Comment on above: Performed By: #### C MP, LIPA, JANI #### [facility] [address] [place] [address] Dr. Nicol Danielson Glucose [Mass/Vol] 98 mg/dL Normal 74-106 [facility] Comment on above: Performed By: #### C SHEREE BOO, JANI #### [facility] [address] [address] [address] Nicol Danielson Potassium [Moles/Vol] 4.0 mmol/L Normal 3.5-5.1 [facility] Comment on above: Performed By: #### C SHEREE BOO, JANI #### [facility] [address] [place] [address] Dr. Nicol Danielson Protein [Mass/Vol] 6.9 g/dL Normal 6.4-8.2 [facility] Comment on above: Performed By: #### C SHEREE BOO, JANI #### [facility] [address] [place] [address] Dr. Nicol Danielson Sodium [Moles/Vol] 135 mmol/L Critically low 136-145 [facility] Comment on above: Performed By: #### C SHEREE BOO, JANI #### [facility] [address] [place] [address] Dr. Nicol Danielson Urea nitrogen [Mass/Vol] 6.0 mg/dL Critically low 7.0-18.0 [facility] Comment on above: Performed By: #### C SHEREE BOO, JANI #### [facility] [address] [place] [address] Dr. Nicol Danielson Urea nitrogen/Creatinine [Mass ratio] 10.7 mg/mg Normal [facility] Comment on above: Performed By: #### C SHEREE BOO, JANI #### [facility] [address] [place] [address] Dr. Nicol Danielson US PREG TVon 05-29-2022 [...] SAMEER PIERRE Date: 2022-05-29 12:43 Normal [facility] ER URINE PROFILEon 1 Bilirubin Ql (U) Unable to perform testing due to color interference. Abnormal NEGATIVE [facility] Comment on above: Performed By: #### KERRI OWENS PREGU #### [facility] [address] [place] [address] Raysa Candelaria Clarity (U) CLEAR Normal CLEAR [facility] Comment on above: Performed By: #### KERRI OWENS PREGU #### [facility] [address] [address] Raysa Candelaria Color (U) RED Abnormal YELLOW [facility] Comment on above: Performed By: #### KERRI OWENS PREGU #### [facility] [address] [place] [address] Raysa Candelaria ERUAHD A micrscopic examination will be performed if indicated. Normal [facility] Comment on above: Performed By: #### KERRI OWENS PREGU #### [facility] [address] [address] Raysa Candelaria Glucose Ql (U) Unable to perform testing due to color interference. Abnormal NEGATIVE [facility] Comment on above: Performed By: #### KERRI OWENS PREGU #### [facility] [address] [address] Raysa Candelaria Hemoglobin Ql (U) Unable to perform testing due to color interference. Abnormal NEGATIVE [facility] Comment on above: Performed By: #### KERRI OWENS PREGU #### [facility] [address] [address] Raysa Candelaria Ketones Ql (U) Unable to perform testing due to color interference. Abnormal NEGATIVE [facility] Comment on above: Performed By: #### KERRI OWENS PREGU #### [facility] [address] [id number] Raysa Candelaria LEUKOCYTES Unable to perform testing due to color interference. Abnormal NEGATIVE [facility] Comment on above: Performed By: #### KERRI OWENS, PREGU #### [facility] [address] [address] Raysa Candelaria Nitrite Ql (U) Unable to perform testing due to color interference. Abnormal NEGATIVE [facility] Comment on above: Performed By: #### KERRI OWENS, PREGU #### [facility] [address] [address] Raysa Candelaria pH Unable to perform testing due to color interference. Abnormal 5-9 [facility] Comment on above: Performed By: #### KERRI OWENS, PREGU #### [facility] [address] [place] [address] Raysa Candelaria SPEC GRAVITY 1.025 Normal 1.005-<=1.025 [facility] Comment on above: Performed By: #### KERRI OWENS, PREGU #### [facility] [address] [address] Raysa Candelaria UA PROTEIN Unable to perform testing due to color interference. Normal NEGATIVE/ TRACE [facility] Comment on above: Performed By: #### KERRI OWENS, PREGU #### [facility] [address] [place] [address] Raysa Candelaria UR MICRO IND INDICATED Normal [facility] Comment on above: Performed By: #### KERRI OWENS, PREGU #### [facility] [address] [place] [address] Raysa Candelaria UROBILINOGEN Unable to perform testing due to color interference. Normal 0.2 - 1.0 [facility] Comment on above: Performed By: #### KERRI OWENS, PREGU #### [facility] [address] [address] Raysa Candelaria URon 06-19-2021 , QUAL Negative Normal NEGATIVE [facility] Comment on above: Performed By: #### IAN OWENSICRO, PREGU #### [facility] [address] [place] [address] Raysa Gaona URINE MICROSCOPIC ONLYon BACTERIA NONE SEEN Normal NONE SEEN [facility] Comment on above: Performed By: #### C MP, LIPA, JANI #### [facility] [address] [place] [address] Dr. Nicol Danielson Bacteria identified Cx Nom (U) NOT INDICATED Normal [facility] Comment on above: Performed By: #### C MP, LIPA, JANI #### [facility] [address] [place] [address] Dr. Nciol Danielson CAST NONE SEEN Normal NONE SEEN [facility] Comment on above: Performed By: #### C MP, LIPA, JANI #### [facility] [address] [place] [address] Dr. Nicol Danielson Crystals LM Nom (Urine sed) NONE SEEN Normal NONE SEEN [facility] Comment on above: Performed By: #### C MP, LIPA, JANI #### [facility] [address] [place] [address] Dr. Nicol Danielson Epithelial cells LM Ql (Urine sed) RARE Normal NONE SEEN /RARE [facility] Comment on above: Performed By: #### C MP, LIPA, JANI #### [facility] [address] [place] [address] Dr. Nicol Danielson MUCOUS NONE SEEN Normal NONE SEEN [facility] Comment on above: Performed By: #### C MP, LIPA, JANI #### [facility] [address] [place] [address] Dr. Nicol Danielson RBC 50-75 Abnormal 0-2 [facility] Comment on above: Performed By: #### C MP, LIPA, JANI #### [facility] [address] [place] [address] Dr. Nicol Danielson WBC 0-2 Abnormal NONE SEEN [facility] Comment on above: Performed By: #### C MP, LIPA, JANI #### [facility] [address] [place] [address] Dr. Nicol Danielson US PELVIS TRANSVAGon 021 [...] DEYA NORRIS Date: 2021-06-19 09:47 Normal [facility] Amphetamine Screen Ql (U)on 03-28-2021 Amphetamines Ql (U) Negative Negative [facility] Barbiturates [Presence] in U rineon 03-28-2021 Barbiturates Ql (U) Negative Negative [facility] Benzodiazepines [Presence] i n Urineon 03-28-2021 Benzodiazepines Ql (U) Negative Negative [facility] Cannabinoids [Presence] in U rine by Screen methodon 03-28-2021 Cannabinoids Screen Ql (U) Positive Negative [facility] Comment on above: These are unconfirme d results and should not be used for legal purposes. Drug Cut-Off Concentration: AMPH 1000 ng/mL BRYAN 200 ng/mL TERESA 200 ng/mL COCM 300 ng/mL OP 300 ng/mL PCP 25 ng/mL THC 20 ng/mL HCG ( test) IA.rapi d Ql (U)on 03-28-2021 HCG ( test) Ql (U) Negative [facility] - Drug toxicology on 03-28-2021 Opiates Ql (U) Negative Negative [facility] Phencyclidine Screen Ql (U)o n 03-28-2021 Phencyclidine Ql (U) Negative Negative [facility] Urine cocaine detectionon Cocaine Ql (U) Negative Negative [facility] COVID-19 Positive/Negativeon 03-24-2021 SARS-CoV-2 (COVID-19) N gene GILBERTO+probe Ql (Resp) Negative Negative [facility] Comment on above: Testing for SARS-CoV -2 by RT-PCRThis test was developed and its performance characteristics determined by [employer]) and validated at the [facility]. This test has not been FDA [...] the authorization is terminated or revoked sooner. Vital Signs Date Time Vital Sign Value Performing Clinician Facility 03-22-2024 21:25-0400 Diastolic blood pressure 84 mm[Hg] [employer] [facility] 03-22-2024 21:25-0400 [facility] 92 [facility] 03-22-2024 21:25-0400 Respiratory rate 16 /min [employer] [facility] 03-22-2024 21:25-0400 SaO2% (BldA) [Mass fraction] 100 % Kaylinn Dokken [facility] 03-22-2024 21:25-0400 Systolic blood pressure 121 mm[Hg] Kurtinn Dokken [facility] 03-22-2024 20:22-0400 Body temperature 98.78 [degF] Kurtinn Dokken [facility] 03-22-2024 20:22-0400 Diastolic blood pressure 90 mm[Hg] Bjylinn Dokken [facility] 03-22-2024 20:22-0400 Heart rate 95 /min Lalan Dokken [facility] 03-22-2024 20:22-0400 Respiratory rate 16 /min Lalan Dokken [facility] 03-22-2024 20:22-0400 SaO2% (BldA) [Mass fraction] 100 % Lalan Dokken [facility] 03-22-2024 20:22-0400 Systolic blood pressure 149 mm[Hg] Kurtinn Dokken [facility] 03-26-2023 00:06-0400 Body temperature 98.06 [degF] [facility] 03-26-2023 00:06-0400 Diastolic blood pressure 82 mm[Hg] [facility] 03-26-2023 00:06-0400 Heart rate 81 /min [facility] 03-26-2023 00:06-0400 Respiratory rate 16 /min [facility] 03-26-2023 00:06-0400 SaO2% (BldA) [Mass fraction] 98 % [facility] 03-26-2023 00:06-0400 Systolic blood pressure 134 mm[Hg] Astrit Hajdari [facility] 06-01-2022 22:04-0400 Body height 162.56 cm DO Samuel Mast Work Phone: [facility] 06-01-2022 22:04-0400 Body temperature 98.7 [degF] DO Samuel Mast Work Phone: [facility] 06-01-2022 22:04-0400 Body weight 65.35 kg DO Samuel Mast Work Phone: [facility] 06-01-2022 22:04-0400 Diastolic blood pressure 96 mm[Hg] DO Samuel Mast Work Phone: [facility] 06-01-2022 22:04-0400 Heart rate 104 /min DO Samuel Mast Work Phone: [facility] 06-01-2022 22:04-0400 Respiratory rate 18 /min DO Samuel Mast Work Phone: [facility] 06-01-2022 22:04-0400 SaO2% (BldA) [Mass fraction] 100 % DO Samuel Mast Work Phone: [facility] 06-01-2022 22:04-0400 Systolic blood pressure 139 mm[Hg] DO Samuel Mast Work Phone: [facility] 03-28-2021 11:00-0400 Diastolic blood pressure 84 mm[Hg] Samuel Mast Work Phone: [facility] 03-28-2021 11:00-0400 Heart rate 84 /min Samuel Mast Work Phone: [facility] 03-28-2021 11:00-0400 Respiratory rate 16 /min Samuel Mast Work Phone: [facility] 03-28-2021 11:00-0400 SaO2% (BldA) [Mass fraction] 99 % Samuel Mast Work Phone: [facility] 03-28-2021 11:00-0400 Systolic blood pressure 124 mm[Hg] Samuel Mast Work Phone: [facility] 03-28-2021 08:33-0400 Body height 162.56 cm Samuel Mast Work Phone: [facility] 03-28-2021 08:33-0400 Body mass index (BMI) [Ratio] 24.9 kg/m2 Samuel Mast Work Phone: [facility] 03-28-2021 08:33-0400 Body weight 65.77 kg Samuel Mast Work Phone: [facility] 03-28-2021 07:24-0400 Body temperature 98.2 [degF] Samuel Mast Work Phone: [facility] Encounters Encounter Date Encounter Type Care Provider Facility Start: 03-30-2024 End: 03-30-2024 Patient encounter procedure DO Aman Brandon Work Phone: [facility] [place] Work Phone: Start: 03-30-2024 End: 03-30-2024 ambulatory DO Aman Brandon Work Phone: [facility] Work Phone: Start: 03-22-2024 End: 03-22-2024 Emergency department patient visit Lex Davis Facility:[facility] [place] Start: 03-26-2023 End: 03-26-2023 Emergency department patient visit Mo Farias [facility] Start: 06-11-2022 End: 06-11-[address] NONE LISTED REQUEST Facility: Start: 06-01-2022 End: 06-01-2022 Emergency department patient visit DO Samuel Mast Work Phone: [facility] Start: 05-29-2022 End: 05-29-[address] NONE LISTED REQUEST Facility: Start: 06-19-2021 End: 06-19-[address] NONE LISTED REQUEST Facility: Start: 03-28-2021 End: 03-28-2021 Admission to same day surgery center Samuel Mast Work Phone: -[facility] Start: 03-24-2021 End: 03-24-2021 Patient encounter procedure Samuel Mast Work Phone: -Pre-Surgical Testing Start: 03-09-2021 End: 03-09-2021 Patient encounter procedure Samuel Mast Work Phone: -[facility] [place] Start: 11-14-2020 End: 11-14-2020 Patient encounter procedure Samuel Mast -[facility] Procedures Date Procedure Procedure Detail Performing Clinician Start: 03-28-2021 Open reduction of fracture with internal fixation Samuel Mast Work Phone: Start: 03-09-2021 MRI of right wrist Samuel Mast Work Phone: Start: 11-14-2020 X-ray of right wrist , two views Samuel Mast None (qualifier value) Ar Farias Plan of Treatment Date Care Activity Detail Author Start: 03-30-2024 [facility] Start: 03-09-2021 MRI of right wrist MR wrist RT wo co n [facility] Herpes simplex virus 1+2 IgG Ab [Units/volume] in Serum by Immunoassay [facility] Herpes simplex virus 2 IgG Ab [Units/volume] in Serum by Immunoassay [facility] Patient referral [facility] Payers Date Payer Category Payer Self-pay [id number] 2023 Medicaid [id number] 1995 [id number] 1995 Unknown [id number] 2.16.84 [id number] 1995 Unknown [id number] 2.16.84 [id number] 1995 Unknown [id number] 2.16.8 [id number] 1995 Unknown [id number] 2.16.8 [id number] 1995 Unknown [id number] 2.16.8 [id number] 1995 Unknown [id number] 2.16.84 [id number] 1959 Unknown [id number] 1959 Unknown [id number] Unknown [id number] Unknown [facility] [id number] Unknown [id number] 2.16.8 [id number] Social History Date Type Detail Facility Start: 11-24-2018 End: 03-28-2021 Tobacco smoking status NHIS Smoker (finding) [facility] Start: 1995 Sex Assigned At Female F [facility] Start: 06-01-2022 Tobacco smoking stat [facility] Never smoked tobacco (finding) [facility] Start: 03-26-2023 Tobacco smoking status Light t obacco smoker (finding) [facility] Sex Assigned At Female [facility] Goals Date Patient Goal Desired Activity /State Functional Status Date Assessment Result Facility 03-22-2024 Functional Status N/A [facility] 03-26-2023 Functional Status N/A [facility] Hospital Discharge instructions 03-22-2024 Note [...] STI. Follow these instructions at home: Take hvyw-uek-mxykenm and prescription medicines only as told by [...] provider. Document Revised: 02/27/2021 Document Reviewed: 02/27/2021 [employer] Patient Education 2022 [employer]. 03/22/2024 21:26:04 Dysuria Dysuria Dysuria is pain [...] Follow these instructions at home: Medicines Take jhiz-ztw-zjftajo and prescription medicines only as told by [...] provider. Document Revised: 05/05/2021 Document Reviewed: 05/05/2021 [employer] Patient Education 2022 [employer]. Follow Up Care 03/22/2024 20:18:54 With:Kathia BRANDON Address: [address] [place] [phone] Business (1) When:03/25/2024 21:17:27 Comments:Call Dr for diagnosis based follow up [facility] Evaluation + Plan note 03-22-2024 Note Date & Type Note Facility 03-22-2024 Evaluation + Plan note Extrac hal from: Title:ED Note Author:Michael Feng PA-C te:03/22/24 Dysuria (R30.0: Dysuria) STD exposure (Z20.2: Contact with and (suspected) exposure to infections with a predominantly sexual mode of transmission) Orders: ceftriaxone, 500 mg = 1 EA, Injection, IntraMuscular, Once, Stop date 03/22/24 20:48:00 EDT, STAT, Start date 03/22/24 20:48:00 EDT, 03/22/24 20:48:00 EDT doxycycline, 100 mg = 1 cap(s), Oral, BID, X 7 day(s), # 14 cap(s), Refills(s) 0, Pharmacy: [facility]/pharmacy #[id number], 162.5, cm, 03/22/24 20:24:00 EDT, Height/Length Dosing, 60.2, kg, 03/22/24 20:24:00 EDT, Weight Dosing doxycycline, 100 mg = 1 cap(s), Cap, Oral, Once, Stop date 03/22/24 20:48:00 EDT, STAT, Start date 03/22/24 20:48:00 EDT, 03/22/24 20:48:00 EDT Chlamydia/Gonococcus, GILBERTO U Beta Hcg Qual UA with Cult Rflx Urine Culture Diagnostic Tests Pending * Chlamydia/Gonococcus, GILBERTO 03/22/24 * Urine Culture 03/22/24 [facility] Evaluation + Plan note 03-26-2023 Note [...] BID, # 14 cap(s), Refills(s) 0, Pharmacy: [facility]/pharmacy #[id number], 162, cm, 03/26/23 0:10:00 EDT, Height/Length Dosing, 68.3, kg, 03/26/23 0:10:00 EDT, Weight Dosing [facility] Hospital Discharge instructions 03-26-2023 Note Date & [...] treated. Follow these instructions at home: Take evrs-bki-zowuelo and prescription medicines as told by your [...] provider. Document Revised: 08/16/2022 Document Reviewed: 08/16/2022 [employer] Patient Education 2022 [employer]. Follow Up Care 03/26/2023 00:04:22 With:Kathia BRANDON Address: [address] [place] [address], [place] [id number] mcTEL (1) When:03/29/2023 Comments:Return to the emergency room if you develop any symptoms. [facility] Evaluation note Note Date & Type Note Facility Evaluation note No assessment information [facility] Hospital course Narrative Note Date & Type Note Facility Hospital course Narrative No data available for this section [facility] Progress note Note Date & Type Note Facility Progress note No data available for this section [facility] Advance Directives No Advanced Directives Records Found Advance Directive Response Recorded Date/ Time Advance Directives No June 3:45am Advance Directive Response Recorded Date/ Time Advance Directives No June 4:45am Chief Complaint and Reason for Visit Chief Complaint M25.531 Chief Complaint M67.431 Chief Complaint M67.431 Wrist Pain Chief Complaint M67.431 Wrist Pain Wrist Pain Chief Complaint vomiting, 8 weeks pr eg. Chief Complaint z11.3 Assessments No Assessments Information Available Family History No Family History Records Found Relationship Condition Age at Onset Recorded Date/T mello grandparent Chronic obstructive pulmonary disease Unk nown Relationship Condition Age at Onset Recorded Date/T mello grandparent Chronic obstructive pulmonary disease Unk nown grandparent Unknown Summary Purpose Additional Source Comments Goals (unrecognized section and content) Goals may be documented in a n alternate sectionGoals may be documented in an alternate sectionGoals may be documented in an alternate sectionGoals may be documented in an alternate section No data available for this section No data available for this sectionGoals may be documented in an alternate section Care Teams (unrecognized sec tion and content) Team Status: Inactive Member Role Status Dates Samuel Hankins DO Primary Care Provider Active Jemal Gregory DO Emergency Provider Active Team Status: Active Member Role Status Dates Samuel Hankins DO Primary Care Provider Active Team Status: Active Member Role Status Dates Aman Brandon DO Primary Care Provider Active Team Status: Inactive Member Role Status Dates Aman Brandon DO Primary Care Provider Active Start: March 30, 2024 End: March 30, 2024 Shelton Colby MD Attending Provider Active Star t: March 30, 2024 End: March 30, 2024 INFORMATION SOURCE (unrecogn ized section and content) DATE CREATED AUTHOR 06/12/2022 [facility] DATE CREATED AUTHOR AUTHOR'S ORGANIZ ATION 03/22/2024 [facility] DATE CREATED AUTHOR AUTHOR'S ORGANIZ ATION 03/23/2024 [facility] DATE CREATED AUTHOR AUTHOR'S ORGANIZ ATION 03/26/2024 [facility] DATE CREATED AUTHOR AUTHOR'S ORGANIZ ATION 03/27/2024 [facility] DATE CREATED AUTHOR AUTHOR'S ORGANIZ ATION 03/31/2024 [facility] DATE CREATED AUTHOR AUTHOR'S ORGANIZ ATION 05/29/2024 [facility] FOR RECORDS PERTAINING TO PATIENTS WHO ARE [...] BE BASED ON THE PRIMARY CLINICAL RECORDS. [employer] provides no warranty or guarantee of the accuracy or completeness of information in this document.
--- NOTE | 2025-01-24 12:28 | ED_ITS ---
HPI - Female Genitourinary General Stated complaint: ABDOMINAL PAIN Time Seen by Provider: 01/24/25 12:20 Source: patient Mode of arrival: walk-in History of Present Illness HPI Narrative: Is coming to the ER with a suprapubic pain saying that this is a problem of having this pain every month before her menstruation. The patient is requesting only Toradol shot she does not want any other things to be given to her she denies any fever chills or any other concerns. She denies any need for any blood workup mentioned that this is a chronic problem that happens with every menstruation almost. Related Data Home Medications ?Medication ?Instructions ?Recorded ?Confirmed No Known Home Medications 01/24/25 01/24/25 Allergies Allergy/AdvReac Type Severity Reaction Status Date / Time No Known Drug Allergies Allergy Verified 03/25/24 00:38 Review of Systems ROS Status of ROS 10 or more systems reviewed and unremark able except as noted in history and below PFSH PFS Social History Smoking status: Current some day smoker Little interest or pleasure in doing things: not at all Feeling down, depressed, or hopeless: not at all Exam Narrative Exam Narrative: Nurses notes and vital signs reviewed and patient is not hypoxic. General: Well-appearing and in no apparent distress. Skin: Warm, dry, no pallor noted. No rash. Head: Normocephalic, atraumatic. Neck: Supple, non-tender. Musculoskeletal: normal ROM, no calf or popliteal tenderness, no lower extremity edema/swelling GI: Abdomen is soft, non-distended. Normal bowel sounds. No masses appreciated. Suprapubic discomfort Neurological: A&O x4. No cranial nerve dysfunction observed. Constitutional Vital Signs, click to edit/add: Last Vital Signs Temp 98.6 F 01/24/25 12:08 Pulse 100 H 01/24/25 12:08 Resp 20 01/24/25 12:08 BP 170/89 H 01/24/25 12:08 Pulse Ox 98 01/24/25 12:08 O2 Del Method Room Air 01/24/25 12:08 Course Vital Signs Vital signs: Vital Signs Temperature 98.6 F 01/24/25 12:08 Pulse Rate 100 H 01/24/25 12:08 Respiratory Rate 20 01/24/25 12:08 Blood Pressure 170/89 H 01/24/25 12:08 Pulse Oximetry 98 01/24/25 12:08 Oxygen Delivery Method Room Air 01/24/25 12:08 Temperature 98.6 F 01/24/25 12:08 Pulse Rate 100 H 01/24/25 12:08 Respiratory Rate 20 01/24/25 12:08 Blood Pressure 170/89 H 01/24/25 12:08 Pulse Oximetry 98 01/24/25 12:08 Oxygen Delivery Method Room Air 01/24/25 12:08 MDM - Female Genitourinary MDM Narrative Medical decision making narrative: The patient just requesting the Toradol shot I did explain to her that there are other diagnoses could be going as well but she mentioned that this is just happen every month before her menstruation although sometimes not every menstruation is painful The patient denies any nausea vomiting or any vaginal discharge or any concern for I did explain to her that I will provide her with a Toradol shot but she need to come back in case of any worsening of her symptoms and she to follow-up with [employer] at the outpatient The patient is to follow up with primary care physician in next 2-3 days or to return to the emergency department should any of the signs or symptoms worsen or new symptoms develop. The patient agrees with the following Diagnosis and Treatment plan and the patient will be discharged home. Discharge Plan Discharge Clinical Impression: Dysmenorrhea Patient Disposition: Home, Self-Care Time of Disposition Decision: 12:29 Condition: Good Prescriptions / Home Meds: No Action No Known Home Medications Print Language: Nicaraguan Instructions: Dysmenorrhea (ED) Referrals: Thanh Olivia DO [Physician] - 1 week Physician,Non-Staff, [Primary Care Provider] - 1 week
[2025-01-24] MEDS: KETOROLAC TROMETHAMINE 30 MG/ML VIAL IM (12:38)
== END 2025-01-24 12:41 | disposition home or self-care (01) ==
PROVIDERS: Emergency Provider Emergency Medicine
DX: N94.6 Dysmenorrhea, unspecified (principal); F17.200 Nicotine dependence, unspecified, uncomplicated
CPT/HCPCS: 96372; 99284; J1885

== ENCOUNTER 2025-03-02 07:42 | Emergency (ER) | payer SELFPAY ==
--- OUTSIDE RECORDS SUMMARY | 2023-07-12 04:30 | XMS_ITS | Continuity of Care Document ---
Author Organization 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 Name Role Phone Dakotah Marcelo DMD Unavailable Unavailable Allergies, Adverse Reactions, Alerts Substance Reaction Status Criticality No Known Allergies Active No Inform ation Procedures Procedure Date Prophylaxis Adult Nutrit Couns For Control Of Ida Dis Jul Tobacco Counseling Oral Hygiene Instruction Intraoral-complete Series (bw) Comp Oral Eval New/estab Patient 2022 Nutrit Couns For Control Of Ida Dis Jun OFFICE/OUTPATIENT VISIT, [facility] URINE TEST Advance Directives Directive Yes / No Effective Date File Name No Information Encounters Encounter Description Practice Location Reason(s) For Visit Diagnoses Date Provider Providers Copied on Encounter [facility], [address] [place] [address], [id number], [place] tel:[phone] [facility] [place] (chief complaint) Encounter for screening for dental disorders Fozia Ramirezal. [address], [place], [id number], [place]. tel:[phone] [facility], [address] [place] [address], [id number], [place] tel:[phone] [facility] [place] (chief complaint) Encounter for screening for dental disorders Fozia HOLT Dakotah. [address], [place], [id number], [place]. tel:[phone] OFFICE/OUTPATI ENT VISIT, EST [facility], [address] [place] [id number], tel:[phone] [facility] No Information Emir Gonzalez. [address], [place], [id number], [place]. tel:[phone] Family History Family Member Type Diagnosis Age At Onset No Information Payers Payer name Insurance type Covered libertarian ID Authoriza tion(s) No Information Social History Type Description Quantity Date Captured Comments Alcohol Use Details Unknown Caffeine Use Details Unknown Tobacco Use Status No Information Smoking Status No Information Sex Female Sexual Orientation Straight or heterosexual Gender Identity Female Vital Signs Date / Time: Height Weight BMI Pulse Rate Blood Pressure Temperature Respiratory Rate Body Surface Area Head Circumference Head Circ. Percentile Wt./[place]. Percentile BMI percentile Pulse Ox Inhaled Ox 8:52 AM 64 /min 122/81 mm[Hg] 96.10 F Chief Complaint And Reason For Visit From encounter dated '07/12/2023 08:30'. PA (chief complaint). Description: PA Reason For Referral Reason For Referral No Information Plan Of Treatment Date Type Action Status Goal Tdap. Due on due Goal Depression screening. Due on due Goal PRAPARE ASSESSMENT. Due on O ct due Goal Hepatitis C screening. Due o n due Goal Tdap Vaccine. Due on 2022 due Goal Influenza vaccine. Due on Oc due Goal RLP. Due on due Goal PAP. Due on due Goal Unhealthy drug use screening . Due on due Goal PRAPARE ASSESSMENT. Due on S due Goal Influenza vaccine. Due on Se p due Goal Depression screening. Due on due Goal Tdap Vaccine. Due on 2022 due Goal RLP. Due on due Goal Tdap. Due on due Goal PAP. Due on due History Of Present Illness Encounter Date Complaint History Of Prese nt Illness PA PA DN Functional Status Date Functional Assessmen t No Information Instructions Date Instruction Additional Infor mation No Information Assessments Type Assessment Date No Information Patient Care Teams Name Effective Dates (start - stop) Status Members No Information
--- OUTSIDE RECORDS SUMMARY | 2024-03-30 15:31 | XMS_ITS ---
Author Name Auto Generated Organization OHIP Care Team Providers Care Roll Up Operator Name Role Phone DO Lex Davis Attending Unavailable DO Lex Davis Attending Unavailable Shelton Colby Attending Unavailable Shelton Colby Admitting Unavailable Aman Brandon Primary Care Unavailable SHELTON COLBY Attending Unavailable SHELTON COLBY Referring Unavailable PROBLEMS DATE TYPE CONDITION / CODE ATTENDING STATUS [facility] 03/30/2024 Unknown Encounter for sc reening for infections with a predominantly sexual mode of transmission / Z11.3(ICD-10) Shelton Colby Active [facility] PROCEDURES No Procedure Records Found RESULTS HSV 1,2 IGG SPECIFIC AB BLOOD Collected : 03/30/2024 3:43 PM Status: F Source: [facility] TYPE CODE TESTS RESULT OUT OF RANGE REFERENCE UNITS LAB HSV 1, IGG AB Herpes Simplex Virus I, IgG <0.91 0.00-0.90 Result Comment: Negative <0. 91 Equivocal 0.91 - 1.09 Positive >1.09 Note: Negative indicates no antibodies detected to HSV-1. Equivocal may suggest early infection. If clinically appropriate, retest at later date. Positive indicates antibodies detected to HSV-1. LAB HSV 2, IGG AB Herpes Simplex Virus II, IgG 7.15 High 0.00-0.90 Result Comment: Negative <0 .91 Equivocal 0.91 - 1.09 Positive >1.09 HSV-2 Antibody Interpretation: Current guidelines and recommendations do not recommend routine screening for HSV-2 in asymptomatic individuals, including those that are . A negative antibody result indicates no detectable antibodies to HSV-2 were found. If recent exposure is suspected, retest in 4 to 6 weeks. Equivocal samples should be retested in 4 to 6 weeks. A positive result indicates the presence of detectable IgG antibody to HSV-2. FALSE POSITIVE RESULTS MAY OCCUR. Repeat testing, or testing by a different method, may be indicated in some settings (e.g. patients with low likelihood of HSV infection). If clinically appropriate, retest 4 to 6 weeks later. HSV-2 IgG antibody testing results should be clinically correlated. Performed at: [facility] [id number] Technology Instructor: Black Kerns PhD, Phone: [phone] PERFORMED BY: [address] [place] [address] PATHOLOGIST GLASS MOULD CLEANER KRISTY JACK M.D. Performed By: #### HSV 1,2Ig G #### [facility] , CODING SUMMARY. Observed: 03/25/2024 11:31 AM Status: F Source: [facility] [id number] NjZXJ u [file] [id number]+[id number]== DISCHARGE INSTRUCTIONS Observed: 12:02 AM Status: F Source: [facility] [id number] ED PATIENT EDUCATION NOTE Observed: 03/07 9:26 PM Status: F Source: [facility] Obstetrics and Gynecology Safe Sex Practicing safe [...] Follow these instructions at home: ? Take nizq-vqy-afruzir and prescription medicines only as told by your health care provider. ? Keep all follow-up visits. This is important. Where to find more information ? Centers for Disease Control and Prevention: www.cdc.gov ? Planned Parenthood: www.plannedparenthood.org ? Office on Women's Health: www.womenshealth.gov Summary [...] provider. Document Revised: 02/27/2021 Document Reviewed: 02/27/2021 Embarkly Patient Education ? 2022 [employer].Urology Dysuria Dysuria is pain or discomfort during [...] these instructions at home: Medicines ? Take vunx-zhj-rpeqngq and prescription medicines only as told by [...] alcohol may irritate the prostate. General instructions ? Watch your condition for any changes. ? Urinate often. Avoid holding urine for long periods of time. ? If you are female, you should wipe from front to back after urinating or having a bowel movement. Use each piece of toilet paper only once. ? Empty your bladder after sex. ? Keep all follow-up visits. This is important. ? If you had any tests done to find the cause of dysuria, it is up to you to get your test results. Ask your health care provider, or the department that is doing the test, when your results will be ready. Contact a health care provider if: ? You have a fever. ? You develop pain in your back or sides. ? You have nausea or vomiting. ? You have blood in your urine. ? You are not urinating as often as you usually do. Get help right away if: ? Your pain is severe and not relieved with medicines. ? You cannot eat or drink without vomiting. ? You are confused. ? You have a rapid heartbeat while resting. ? You have shaking or chills. ? You feel extremely weak. Summary ? Dysuria is pain or discomfort while urinating. Many different conditions can lead to dysuria. ? If you have dysuria, you may have to urinate frequently or have the sudden feeling that you have to urinate (urgency). ? Watch your condition for any changes. Keep all follow-up visits. ? Make sure that you urinate often and drink enough fluid to keep your urine pale yellow. This information is not intended to replace advice given to you by your health care provider. Make sure you discuss any questions you have with your health care provider. Document Revised: 05/05/2021 Document Reviewed: 05/05/2021 Elsevier Patient Education ? 2022 [employer]. ED PATIENT SUMMARY Observed: 03/22/2024 9:26 PM Status: F Source: [facility] (Inserted Image. Unable to d isplay) [address] [address] Patient Discharge Instructions Person Information Name: DAVID JOYCE Age: 28 Years Arrival Date: 03/22/2024 20:17:10 Discharge Diagnosis: Dysuria; STD exposure Primary Care Physician: Kathia BRANDON DO Provider Information Primary Provider: Lex Davis DO [employer] Pump Station Operator:None The exam and treatment you received in the Emergency Department were for an urgent problem and are not intended as complete care. It is important that you follow up with a doctor, nurse practitioner, or physician?s junior assistant manager for ongoing care. If your symptoms become worse or you do not improve as expected and you are unable to reach your usual health care provider, you should return to the Emergency Department. We are available 24 hours a day. DAVID JOYCE has been given the following list of patient education materials, prescriptions and follow-up instructions: Follow-up Instructions: With: Address: When: Kathia BRANDON [address] [place], [place] [address] Business (7) In 3 days 03/25/2024 Comments: Call Dr [...] opioids can be used to help relieve sovlestw-ct-ylpdbc pain and are often prescribed following a [...] unused prescription opioids: Find your community drug take- back program or your pharmacy mail-back program, or flush them down the toilet, following guidance from the Food and Drug Administration (www.fda.gov/Drugs/ResourcesForYou). ? Visit www.cdc.gov/drugoverdose to learn about the risks of opioids abuse and overdose. ? If you believe you may be struggling with addiction, tell your health primary care pediatrician and ask for guidance or call SAMHSA?S National Helpline at 9-718-362-UNQU. v Source: US Department of Health and Human Services/Center for Disease Control & Prevention [facility] Medications Given: Medication Dose Route ceftriaxone 500.00 mg IntraMuscular Left Ventragluteal doxycycline 100.00 mg Oral Medication Information: Medications to Continue Taking That Have Changed [id number], [address] [place], [place] [id number], [phone] START: doxycycline (doxycycline hyclate 100 mg Cap) [...] day as needed for itching. Refills: 0. Comment: Pharmacy Information: Patient Portal You may access all of your results and other medical record information on our secure patient portal. If you are not signed up for this yet, please contact [employer] at [phone] to get signed up today. SUSAN Award Nomination The SUSAN (Diseases Attacking the Immune SYstem) Award is an international recognition program that honors and celebrates the skillful, compassionate care nurses provide every day. Anyone who experiences or observes amazing care being provided by a nurse is encouraged to submit a nomination. To nominate your nurse, use your smart phone to scan the QR code below. You may receive a survey from [employer] asking you to rate your care experience. Your feedback is important and will help us understand what we do well and how we can improve the quality of care we provide to you, your loved ones and our community. It?s an honor to serve you. Thank you for choosing [facility] Patient Education Materials: Safe Sex Practicing safe sex means taking [...] Follow these instructions at home: ? Take tfdc-jfk-krbnfuw and prescription medicines only as told by your health care provider. ? Keep all follow-up visits. This is important. Where to find more information ? [facility] Disease Control and Prevention: www.cdc.gov ? Planned Parenthood: www.plannedparenthood.org ? Office on Women's Health: www.womenshealth.gov Summary [...] provider. Document Revised: 02/27/2021 Document Reviewed: 02/27/2021 Embarkly Patient Education ? 2022 [employer]. Dysuria Dysuria is pain or discomfort during [...] these instructions at home: Medicines ? Take gixh-yky-gjlabmc and prescription medicines only as told by [...] alcohol may irritate the prostate. General instructions ? Watch your condition for any changes. ? Urinate often. Avoid holding urine for long periods of time. ? If you are female, you should wipe from front to back after urinating or having a bowel movement. Use each piece of toilet paper only once. ? Empty your bladder after sex. ? Keep all follow-up visits. This is important. ? If you had any tests done to find the cause of dysuria, it is up to you to get your test results. Ask your health care provider, or the department that is doing the test, when your results will be ready. Contact a health care provider if: ? You have a fever. ? You develop pain in your back or sides. ? You have nausea or vomiting. ? You have blood in your urine. ? You are not urinating as often as you usually do. Get help right away if: ? Your pain is severe and not relieved with medicines. ? You cannot eat or drink without vomiting. ? You are confused. ? You have a rapid heartbeat while resting. ? You have shaking or chills. ? You feel extremely weak. Summary ? Dysuria is pain or discomfort while urinating. Many different conditions can lead to dysuria. ? If you have dysuria, you may have to urinate frequently or have the sudden feeling that you have to urinate (urgency). ? Watch your condition for any changes. Keep all follow-up visits. ? Make sure that you urinate often and drink enough fluid to keep your urine pale yellow. This information is not intended to replace advice given to you by your health care provider. Make sure you discuss any questions you have with your health care provider. Document Revised: 05/05/2021 Document Reviewed: 05/05/2021 Embarkly Patient Education ? 2022 Embarkly Inc. MARIA DEL CARMEN Wilkins ADRIANNA R , have received the following patient education materials/instructions and have verbalized understanding: Patient Education Materials: Safe Sex; Dysuria Follow-up Instructions: With: Address: When: Kathia MADDI SAWYERBROWN [address] [place] [address], [place] [phone] Business (1) In 3 days 03/25/2024 Comments: Call Dr for diagnosis based follow up Patient Signature Date Clinician/Nurse Signature Date 03/22/2024 21:26:05 ED CLINICAL SUMMARY Observed: 03/22/2024 9:26 PM Status: F Source: [facility] (Inserted Image. Unable to d isplay) [place] [id number] ED Clinical Summary Person Information Name: DAVDI JOYCE [facility] Age: 28 Years : 1995 Sex: Female Language: Indonesian PCP: Kathia BRANDON DO Marital Status: Single Visit Id: Visit [...] 03/22/2024 21:26:04 03/22/2024 21:26:04 03/22/2024 21:26:04 ADDRESS: [address] [place] [id number] PHYS DOC NOTES: MEDICAL INFORMATION: Prescriptions Given: Medications to Continue Taking That Have Changed [facility][id number], [address], [place] [id number], [phone] START: doxycycline (doxycycline hyclate 100 mg Cap) [...] Dysuria Follow up: With: Address: When: Kathia BRANDON [address] [place] [address], [place] [phone] [employer] In 3 days 03/25/2024 Comments: Call Dr for diagnosis based follow up DIAGNOSIS: Dysuria; STD exposure ED NOTE-PHYSICIAN Observed: 03/22/2024 8:46 PM Status: F Source: [facility] Basic Information Time Seen: Jung GARCIA, Michael Fatima 03/22/2024 20:19 Chief Complaint Painful urination for [...] and Complexity of Problems Differential Diagnosis: [] [facility] Data External documents reviewed: [] My EKG [...] day(s), # 14 cap(s), Refills(s) 0, Pharmacy: [facility]/pharmacy #[id number], 162.5, cm, 03/22/24 20:24:00 EDT, Height/Length [...] BID Follow-up With When Contact Information Kathia BRANDON In 3 days 03/25/[address] [place] [address] [facility] (1) Additional Instructions: Call Dr for diagnosis based follow up Patient Education Safe Sex Dysuria Attestation Patient seen and evaluated by the physician junior assistant manager. Attending physician was present in the emergency department and supervised care. This visit was performed by both the physician and an APC. I performed all aspects of the MDM as documented. This report was transcribed using voice recognition software. Every effort was made to ensure accuracy, however, inadvertently computerized cupola tender mistakes may be present. Appropriate healthcare PPE was used in evaluating this patient. The patient was placed in a mask. The healthcare provider was wearing mask, gloves, and utilizing proper hand hygiene. All equipment was properly cleansed. I performed a substantive part of the MDM during the patient?s E/M visit. I personally made or approved the documented management plan and acknowledge its risk of complications. (Independent Interpretation) My (EKG/X-Ray/US/CT as applicable) interpretation as above. (Discussion) Management/test interpretation discussed with APC. Problem List/Past Medical History Ongoing Scabies Smoker [...] Tobacco Use:., 03/26/2023 Cigarettes, 12/01/2018 Lab Results UA Spec Desc: Clean Catch (03/22/24 20:30:00) UA Color: Light-Yellow (03/22/24 20:30:00) UA Clarity: Clear (03/22/24 20:30:00) UA Spec Grav: 1.027 (03/22/24 20:30:00) UA pH: 6.5 (03/22/24 20:30:00) UA Protein: Trace Abnormal (03/22/24 20:30:00) UA Glucose: Negat (03/22/24 20:30:00) UA Ketones: Negat (03/22/24 20:30:00) UA Bili: Negat (03/22/24 20:30:00) UA Blood: Negat (03/22/24 20:30:00) UA Nitrite: Negat (03/22/24 20:30:00) UA Urobilinogen: Negat (03/22/24 20:30:00) UA Leuk Est: 75 Rosa M/uL Abnormal (03/22/24 20:30:00) UA RBC: 4-20 Abnormal (03/22/24 20:30:00) UA Squam Epithelial: 3-4 (03/22/24 20:30:00) UA WBC: 6-15 Abnormal (03/22/24 20:30:00) UA Mucous: 1+ Abnormal (03/22/24 20:30:00) U beta hCG Ql: Negative (03/22/24 20:30:00) Diagnostic Results No qualifying data available. Result Comment: Electronical ly Signed By: Michael Feng PA-C\.br\Date and Time Signed: 03/22/24 21:23 EDT\.br\Electronically Co-Signed By: Lex Davis DO\.br\Date and Time Co-Signed: 03/23/24 01:47 EDT CHLAMYDIA/GONOCOCCUS, GILBERTO Collected: 8:30 PM Status: F Source: [facility] TYPE CODE TESTS RESULT OUT OF RANGE REFERENCE UNITS LAB 58008-5([facility] ) CHLAMYDIA TRACHOMATIS RRNA:PRTHR:PT :XXX:ORD:PROB E.AMP.TAR Negative Unknown Negative LAB 70470-4([facility] ) NEISSERIA GONORRHOEAE RRNA:PRTHR:PT :XXX:ORD:PROB E.AMP.TAR Negative Unknown Negative Result Comment: Performed at : =[address] [id number] MD Jared Gutierrez Performed By: #### [id number] #### [facility] [address] [place] [address] U BETAHCG QUAL Collected: 03/22/2024 8:30 PM Status: F Source: [facility] TYPE CODE TESTS RESULT OUT OF RANGE REFERENCE UNITS LAB 2114-7([facility]) CHORIOGONADOT ROPIN.BETA SUBUNIT:SCNC: PT:URINE:QN: Negative Normal Performed By: #### [id number] #### [facility] [address] [place] [address] UA WITH CULT RFLX Collected: 8:30 PM Status: F Source: [facility] TYPE CODE TESTS RESULT OUT OF RANGE REFERENCE UNITS LAB 9194-2([facility]) CLASS:TYPE:PT: URINE COLLECTION METHOD:NOM:* Clean Catch Normal LAB 82320-9([facility]) COLOR:TYPE:PT: URINE:NOM:AUTO Light-Yello w Normal Yellow Result Comment: Microscopic readings are only performed on those samples that meet specific criteria set forth by [facility]. LAB 85288-6(INC) CLARITY:TYPE:P T:URINE:NOM: Clear Normal Clear LAB 5811-5(INC) SPECIFIC GRAVITY:RDEN:P T:URINE:SEMIQN :TEST STRIP 1.027 Unknown 1.005-1.030 LAB 5803-2([facility]) PH:LSCNC:PT:UR INE:SEMIQN:AI T STRIP 6.5 Unknown 5.0-9.0 LAB 91598-9([facility]) PROTEIN:PRTHR: PT:URINE:ORD:T EST STRIP Trace Abnormal Negative mg/dL LAB 22576-5(INC) GLUCOSE:PRTHR: PT:URINE:ORD:T EST STRIP Negative Normal Negative mg/dL LAB 57662-2(INC) KETONES:PRTHR: PT:URINE:ORD:T EST STRIP.AUTOMATE D Negative Normal Negative mg/dL LAB 17782-2([facility]) BILIRUBIN:PRTH R:PT:URINE:ORD :TEST STRIP.AUTOMATE D Negative Normal Negative mg/dL LAB 27754-9([facility]) HEMOGLOBIN:MCN C:PT:URINE:JIMMY IQN:TEST STRIP.AUTOMATE D Negative Normal Negative mg/dL LAB 23416-1([facility]) NITRITE:PRTHR: PT:URINE:ORD:T EST STRIP.AUTOMATE D Negative Normal Negative mg/dL LAB 75674-4([facility]) UROBILINOGEN:M CNC:PT:URINE:S EMIQN:TEST STRIP Negative Normal Negative mg/dL LAB 69573-5(INC) LEUKOCYTE ESTERASE:PRTHR :PT:URINE:ORD: TEST STRIP.AUTOMATE D 75 Rosa M/uL Abnormal Negative CD:20422 24914 LAB 98615-4(LOINC) LEUKOCYTES:ELYSIA IC:PT:URINE SED:QN:AUTOMAT ED COUNT 6-15 Abnormal 0-5 CD:25234 86714 LAB 21574-6(LOINC) ERYTHROCYTES:P RTHR:PT:URINE SED:ORD:MICROS COPY.LIGHT 4-20 Abnormal 0-3 CD:49774 04395 LAB 98810-1(LOINC) EPITHELIAL CELLS.SQUAMOUS :NARIC:PT:URIN E SED:QN:AUTOMAT ED COUNT 3-4 Unknown CD:40686 51815 LAB 47395-8([facility]) MUCUS:PRTHR:PT :URINE:ORD:AUT OMATED 1+ Abnormal Negative CD:29645 11008 Performed By: #### [id number] #### [facility] [address] [place] [address] C URINE Observed: 03/22/2024 8:30 PM Status: F Source: [facility] Microbiology PROCEDURE: Urine Culture [R1] SOURCE: U CleanCatch BODY SITE: COLLECTED DATE/TIME: 03/22/2024 20:30 EDT RECEIVED DATE/TIME: 03/23/2024 02:36 EDT START DATE/TIME: 03/23/2024 02:36 EDT FREE TEXT SOURCE: Jung GARCIA, Michael Pettit. Jung GARCIA, Michael Pettit. FINAL REPORTS Final Report [] Verified Date/Time: 03/25/2024 10:38 EDT 10,000 cfu/ml Streptococcus agalactiae (Group B) Presumptive isolated. Penicillin is the drug of choice for Beta Hemolytic Streptococci Isolates. Routine susceptibility testing on Beta Hemolytic Streptococcus isolates is no longer performed. Susceptibilities will continue to be performed on Isolates from sterile body fluids and serious wound infections. 3,000 cfu/ml Mixed skin contaminants Performing Locations R1: This test was performed at: [facility], [address] [place] [address], [facility] , , Performed By: #### [id number] # ### [facility] [address] [place] [address] CONSENT FOR TREATMENT Observed: 03/22/20 8:18 PM Status: F Source: [facility] [id number] ALLERGIES DATE TYPE / CODE NAME / CODE REACTION SEVERITY SOURCE 06/01/2022 Drug Allergy/3324597 02(SNOMED CT) No Known Allergies/[id number]( RXNORM) Unknown [facility] /[id number](SN OMED CT) No Known Medication Allergies [facility] ENCOUNTERS ADMIT/DISCHARGE ACCOUNT NUMBER ADMITTING ENCOUNTER CLASS LOCATION SOURCE 03/30/2024/03/30/20 [id number] Shelton Colby [facility] 03/30/2024/03/30/20 [id number] Ambulatory Building:[facility] OB [facility] EPIC 03/22/2024/03/22/20 [id number] [facility] 03/22/2024 [id number] Emergency [facility]: EDRoom: [facility] PAYERS ENCOUNTER GUARANTOR PAYER SUBSCRIBER SOURCE 03/30/2024 [facility] [place] [address]Ush: (HP) Primary Insurance:CaresourceP olariel Number: [id number] Date:7932-09-79Ajj[address] [address]VU: David Valdez: [id number] [place] [address]Ldj: () [facility] 03/30/2024 Secondary Insurance:Self PayPolicy Number: Effective Date:2024-03-30 [facility] 03/30/2024 DAVID VALDEZ: [place] [address]Rss: (HP) Primary Insurance:[employer] MEDICAIDPolicy Number: [id number] Date:2022-10-07 DAVID VALDEZ: [id number] [place] [address] [facility] 03/22/2024 DAVID PARADAB: LOLY STTel: (HP) Primary Insurance:CARESOURCEP olariel Number: [id number] Date:1221-61-07ZM [address] [place] [phone]: [facility]ID R [facility] 03/22/2024 DAVID VALDEZ: [id number] LOLY Malhotra: () Primary Insurance:[facility] Number: [id number] Date:2465-60-00XN [address] [place] [phone]: DAVIDRONEY JOYCEAdena [facility] Center
[2025-03-02 07:48] VITALS: BP 129/84; PULSE 66; TEMP 36.5; O2SAT 100; BMI 23.2
--- OUTSIDE RECORDS SUMMARY | 2025-03-02 07:49 | XMS_ITS | Encounter Summary ---
Author Organization [facility] Address [address] [place] [address] Care Team Providers Care Hospital Food Service Worker Name Role Phone Unallocated, Noms Provider Primary Care Provi clay Encounter Details Date Type Department Care Team ([facility] st Contact Info) Description 03/26/2023 Abstract [facility] [address] [facility] [address] [place] [address] Les Brandon, DO [address] [facility] [address] [place] [address] Social History Tobacco Use Types Packs/Day Years Used Date Smoking Tobacco: Never Assessed Comments Unknown Sex and Gender Information Value Date Recorded Sex Assigned at Not on file Legal Sex Female 7:20 PM EDT Gender Identity Not on file Sexual Orientation Not on file documented as of this encounter Plan of Treatment Not on file documented as of this encounter Visit Diagnoses Not on filedocumented in this encounter Care Teams Hospital Food Service Worker Relationship Specialty Start Date End Date Unallocated, Noms Provider, [place] [address] PCP - General Family Medicine 03/30/24 documented as of this encounter
--- OUTSIDE RECORDS SUMMARY | 2025-03-02 07:49 | XMS_ITS | Clinical Summary ---
Author Organization [facility] Address [address] [place] [address] Care Team Providers Care Crew Leader/Control Room Operator Name Role Phone Unallocated, Noms Provider MD Primary Care Provi clay Allergies No known active allergies Medications valACYclovir (Valtrex) 500 MG tablet Take 500 mg by mouth in the morning and 500 mg before bedtime. 03/25/2024 Active diclofenac (Voltaren) 75 MG EC tabletIndicatio ns:Dysmenorrhea Take 1 tablet (75 mg) by mouth in the morning and 1 tablet (75 mg) before bedtime. Do not crush, chew, or split.. 60 tablet 11 06/30/2024 Active Family History Medical History Relation Name Comments Cancer Mother's Sister COPD Paternal Grandfather Relation Name Status Comments Mother's Sister Paternal Grandfather Social History Tobacco Use Types Packs/Day Years Used Date Smoking Tobacco: Never Smokeless Tobacco: Never Tobacco Cessation:Counseling Given: Not Answered Alcohol Use Standard Drinks/Week Comments Not Currently 0 (1 standard drink = 0.6 oz pur e alcohol) Comments No Sex and Gender Information Value Date Recorded Sex Assigned at Not on file Legal Sex Female 7:20 PM EDT Gender Identity Not on file Sexual Orientation Not on file Last Filed Vital Signs Vital Sign Reading Time Taken Comments Blood Pressure 124/70 03/30/2024 2:35 PM EDT Pulse - - Temperature - - Respiratory Rate - - Oxygen Saturation - - Inhaled Oxygen Concentration - - Weight 59.9 kg (132 lb) 03/30/2024 2:35 PM EDT Height 163.8 cm (5' 4.5 ) 01/08/2023 12:00 PM ED T Body Mass Index 22.31 01/08/2023 12:00 PM EDT Plan of Treatment Health Maintenance Due Date Last Done Comments Influenza Vaccine (Season Ended) 2025 Insurance [employer] Care Teams Crew Leader/Control Room Operator Relationship Specialty Start Date End Date Unallocated, Noms Provider, [address] [place], [place] [id number] PCP - General Family Medicine 03/30/24
--- NOTE | 2025-03-02 08:04 | ED.GENADUL1 ---
HPI HPI - General Adult General Chief complaint: Abdominal Pain Stated complaint: ABDOMINAL CRAMPS, VOMITING, DIARRHEA Time Seen by Provider: 03/02/25 07:50 Source: patient Mode of arrival: walk-in History of Present Illness HPI narrative: 29-year-old female presents to the emergency department for abdominal pain. She states it is due to a gynecologic issue similar to endometriosis. This is an ongoing issue for her. She has no concern about . She has not had sex in a very long time. 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 No injury or fever or vomiting. The pain is cramping and moderate. She states that typically a shot of Toradol works for her. She has been taking diclofenac but it made her nauseous and she vomited it. Related Data Home Medications ?Medication ?Instructions ?Recorded ?Confirmed diclofenac sodium 75 mg mg PO 03/02/25 tablet,delayed release Previous Rx's ?Medication ?Instructions ?Recorded ketorolac 10 mg tablet 10 mg PO Q8H 5 days #15 tabs 03/02/25 ondansetron 4 mg disintegrating 4 mg PO Q6H PRN nausea and 03/02/25 tablet vomiting #20 tabs Allergies Allergy/AdvReac Type Severity Reaction Status Date / Time No Known Drug Allergies Allergy Verified 03/02/25 07:48 Opioid HPI Opioid Management Most Recent Opioid Data: Last Pain Scale 10 Today, 07:48 Review of Systems ROS Narrative A ten point review of systems is negative except as noted above. PFSH PFSH Social History Smoking status: Current some day smoker Little interest or pleasure in doing things: not at all Feeling down, depressed, or hopeless: not at all Exam Narrative Exam Narrative: Nurses note and vital signs reviewed and patient is not hypoxic. General: The patient appears well and in no apparent distress. Patient is resting comfortably on cart. Skin: Warm, dry, no pallor noted. There is no rash noted. Head: Normocephalic, atraumatic Eye: Normal conjunctiva, no drainage Ears, Nose, Mouth, and Throat: oral mucosa is moist. Nares patent. Cardiovascular: Regular Rate and Rhythm Respiratory: Patient is in no distress, no accessory muscle use, lungs are clear to auscultation, no wheezing, rales or rhonchi Back: non-tender GI: Normal bowel sounds, mild tender this. No distention or masses Musculoskeletal: The patient has no evidence of calf tenderness, no pitting edema, symmetrical pulses noted bilaterally Neurological: A&O, normal speech Psychiatric: Cooperative Constitutional Vital Signs, click to edit/add: Last Vital Signs Temp 97.7 F 03/02/25 07:48 Pulse 66 03/02/25 07:48 Resp 16 03/02/25 07:48 BP 129/84 03/02/25 07:48 Pulse Ox 100 03/02/25 07:48 O2 Del Method Room Air 03/02/25 07:48 Course Vital Signs Vital signs: Vital Signs Temperature 97.7 F 03/02/25 07:48 Pulse Rate 66 03/02/25 07:48 Respiratory Rate 16 03/02/25 07:48 Blood Pressure 129/84 03/02/25 07:48 Pulse Oximetry 100 03/02/25 07:48 Oxygen Delivery Method Room Air 03/02/25 07:48 Temperature 97.7 F 03/02/25 07:48 Pulse Rate 66 03/02/25 07:48 Respiratory Rate 16 03/02/25 07:48 Blood Pressure 129/84 03/02/25 07:48 Pulse Oximetry 100 03/02/25 07:48 Oxygen Delivery Method Room Air 03/02/25 07:48 Medical Decision Making MDM Narrative Medical decision making narrative: She was given IM Toradol and is prescribed a 5-day course of oral Toradol. She will follow-up with her aquatic centre manager. Treatment diagnosis and follow-up were discussed with the patient. Differential Diagnosis Differential Diagnosis: Abdominal pain, endometriosis Discharge Plan Discharge Chief Complaint: Abdominal Pain Clinical Impression: Abdominal pain Patient Disposition: Home, Self-Care Time of Disposition Decision: 08:01 Condition: Good Mode of Transportation: Private Vehicle Prescriptions / Home Meds: New ketorolac 10 mg tablet 10 mg PO Q8H 5 Days Qty: 15 0RF ondansetron 4 mg tablet,disintegrating 4 mg PO Q6H PRN (Reason: nausea and vomiting) Qty: 20 0RF No Action diclofenac sodium 75 mg tablet,delayed release (DR/EC) PO Print Language: Tongan Instructions: Abdominal Pain (ED) Additional Instructions: Do not take diclofenac while on Toradol Referrals: Kathia VARGAS [Primary Care Provider, Family Practice] - 1 week
[2025-03-02] MEDS: KETOROLAC TROMETHAMINE 60 MG/2 ML VIAL IM (08:13)
== END 2025-03-02 08:24 | disposition home or self-care (01) ==
PROVIDERS: Emergency Provider Emergency Medicine; PCP Family Medicine
DX: R10.9 Unspecified abdominal pain (principal); F17.200 Nicotine dependence, unspecified, uncomplicated
CPT/HCPCS: 96372; 99284; J1885